=== PATIENT | female | born 1995 | race Caucasian/White ===

== ENCOUNTER → 2020-01-23 14:13 | Outpatient (CLI) | payer OTHER, SELFPAY ==
[2020-01-23 13:35] VITALS: BMI 24.0
--- NOTE | 2020-01-23 14:28 | RAD_ITS ---
STUDY: X-RAY CHEST REASON FOR EXAM: Female, 24 years old. Fever over the weekend, cough currently TECHNIQUE: PA and lateral views of the chest. COMPARISON: None. FINDINGS: Findings suggestive of early right apical infiltrate. There is no demonstrated pleural abnormality. Normal size heart. Normal mediastinum and cidny. Normal visualized pulmonary arteries. Normal visualized aortic arch and descending thoracic aorta. Normal visualized thoracic spine. Normal visualized ribs, clavicles, and shoulders. There is no demonstrated abnormality of the visualized soft tissue structures of the upper abdomen. RAD/Chest PA and Lateral IMPRESSION: Findings suggestive of a right apical infiltrate. Electronically Signed: Frankie Pleitez, at 14:59 EDT , Service support ,
== END ==
PROVIDERS: PCP Internal Medicine; Referring Provider Internal Medicine; Visit Provider Internal Medicine
DX: J18.9 Pneumonia, unspecified organism (principal)
CPT/HCPCS: 71046

== ENCOUNTER → 2020-10-29 09:12 | Outpatient (CLI) | payer OTHER, SELFPAY ==
[2020-10-29 08:30] VITALS: BMI 31.7
[2020-10-29 12:52] LABS: Absolute Lymphocyte Count 2.01 X10^3/uL (0.83-4.51); Absolute Neutrophil Count 3.5 X10^3/uL (2.0-7.7); Basophil# 0.05 X10^3/uL; Basophil% 0.8 % (0-1); Eosinophil# 0.14 X10^3/uL; Eosinophils% 2.3 % (0-5); Hematocrit 43.7 % (37-47); Hemoglobin 13.9 g/dL (12.0-15.0); Lymphocyte # 2.01 X10^3/ul (4.0); Lymphocyte % 33.1 % (19-41); Mean Corp Hgb Conc 31.8 g/dL (32-36); Mean Corpuscular Hgb 30.2 pg (27.0-32.0); Mean Corpuscular Volume 94.8 fL (81-99); Mean Platelet Vol. 10.8 fl (6.2-12.0); Monocyte% 6.6 % (0-10); NRBC Flagged by Analyzer 0 % (0-5); Neutrophil # 3.46 X10^3/uL (2.7-7.7); Platelet Count 306 K/mm3 (150-450); RBC Distribution Width CV 12.1 % (11.6-14.6); RBC Distribution Width SD 42.3 fl (35.1-43.9); Red Blood Count 4.61 M/mm3 (4.2-5.4); White Blood Count 6.1 K/mm3 (4.4-11.0)
[2020-10-29 13:00] LABS: ALB/GLOB Ratio 0.9 RATIO (0.9-2.4); AST(SGOT) 21 U/L (15-37); Alanine Aminotransfer ALT/SGPT 34 U/L (13-56); Albumin, Serum 3.7 g/dL (3.2-5.0); Alkaline Phosphatase 91 U/L (45-117); Anion Gap 6 (5-15); BUN 16 mg/dL (7-18); BUN/Creat Ratio 17.7 RATIO (10-20); Calcium,Total 9.2 mg/dL (8.5-10.1); Chloride 103 mmol/L (98-107); Cholesterol 223 mg/dL (200); Creatinine, Serum 0.91 mg/dL (0.55-1.02); EST Glomerular Filtration Rate 81 mL/min (>60); Est Glom Filt Rate - Afr Amer 98 mL/min (>60); Glucose 81 mg/dL (74-106); High Density Lipoprotein 62 mg/dL; Potassium 4.3 mmol/L (3.5-5.1); Protein, Total 7.7 g/dL (6.4-8.2); Sodium Level 137 mmol/L (136-145); Triglycerides 58 mg/dL; Very Low Density Lipoprotein 12 mg/dL (5-40)
== END ==
PROVIDERS: PCP Internal Medicine; Referring Provider Internal Medicine; Visit Provider Internal Medicine
DX: Z00.00 Encounter for general adult medical examination without abnormal findings (principal)
CPT/HCPCS: 36415; 80053; 80061; 85025

== ENCOUNTER 2022-01-01 10:18 | Outpatient (CLI) | payer OTHER, SELFPAY ==
[2022-01-01 10:42] LABS: Absolute Lymphocyte Count 1.99 X10^3/uL (0.83-4.51); Absolute Neutrophil Count 6.5 X10^3/uL (2.0-7.7); Basophil# 0.01 X10^3/uL; Basophil% 0.1 % (0-1); Eosinophil# 0.07 X10^3/uL; Eosinophils% 0.8 % (0-5); Hematocrit 34.7 % (37-47); Lymphocyte # 1.99 X10^3/ul (0.83-4.51); Lymphocyte % 21.7 % (19-41); Mean Corp Hgb Conc 34.6 g/dL (32-36); Mean Corpuscular Hgb 33.6 pg (27.0-32.0); Mean Corpuscular Volume 97.2 fL (81-99); Mean Platelet Vol. 10.5 fl (6.2-12.0); Monocyte% 5.5 % (0-10); NRBC Flagged by Analyzer 0 % (0-5); Neutrophil # 6.52 X10^3/uL (2.7-7.7); Neutrophil % 71.2 % (47-70); Platelet Count 224 K/mm3 (150-450); RBC Distribution Width CV 12.5 % (11.6-14.6); RBC Distribution Width SD 44.5 fl (35.1-43.9); Red Blood Count 3.57 M/mm3 (4.2-5.4); White Blood Count 9.2 K/mm3 (4.4-11.0)
[2022-01-01 10:50] LABS: Glucose Challenge Gest 1H 50g 96 mg/dL (70-140)
== END 2022-01-01 23:59 | disposition home or self-care (01) ==
PROVIDERS: PCP Internal Medicine; Referring Provider Obstetrics & Gynecology; Visit Provider Obstetrics & Gynecology
DX: Z34.90 Encounter for supervision of normal pregnancy, unspecified, unspecified trimester (principal); Z13.1 Encounter for screening for diabetes mellitus
CPT/HCPCS: 36415; 82950; 85025

== ENCOUNTER 2022-01-15 13:42 | Outpatient (CLI) | payer OTHER, SELFPAY ==
[2022-01-15 15:04] LABS: Amphetamine Urine VISTA NEGATIVE (<1000 ng/mL); Barbiturate Urine VISTA NEGATIVE (< 200 ng/mL); Benzodiazepine Urine VISTA NEGATIVE (< 200 ng/mL); Cocaine Urine VISTA NEGATIVE (< 300 ng/mL); Ecstacy Urine VISTA NEGATIVE (< 500 ng/mL); Methadone Urine VISTA NEGATIVE (< 300 ng/mL); PCP Urine VISTA NEGATIVE (< 25 ng/mL); THC Urine VISTA NEGATIVE (< 50 ng/mL); Vista UDS pH Range 7
[2022-01-15 15:23] LABS: HIV - WCH Non-Reactive (Nonreactive)
== END 2022-01-15 23:59 | disposition home or self-care (01) ==
LOC: LAB 13:43
PROVIDERS: PCP Internal Medicine; Referring Provider Obstetrics & Gynecology; Visit Provider Obstetrics & Gynecology
DX: Z34.93 Encounter for supervision of normal pregnancy, unspecified, third trimester (principal); Z3A.30 30 weeks gestation of pregnancy
CPT/HCPCS: 36415; 80307; 86703

== ENCOUNTER → 2022-02-12 | Outpatient (CLI) | payer OTHER, SELFPAY | END | disposition home or self-care (01) | LOC: LABSPEC 16:43 | PROVIDERS: PCP Internal Medicine; Visit Provider Obstetrics & Gynecology | DX: R35.0 Frequency of micturition (principal) | CPT/HCPCS: 87086; 87088 ==

== ENCOUNTER 2022-02-14 18:29 | Observation (INO) | payer OTHER, SELFPAY ==
[2022-02-14] VITALS (16 sets, daily range): BP systolic 109–128; BP diastolic 64–75; PULSE 74–100; TEMP 36.6–37.3; O2SAT 97–100; BMI 31.0
[2022-02-14] MEDS: Lactated Ringers 1,000 ML 100 ML IV (13:50)
[2022-02-14] MEDS: fentaNYL 100 MCG/2 ML Ampul 50 MCG IV (14:10)
[2022-02-14 14:18] LABS: Absolute Lymphocyte Count 2.01 X10^3/uL (0.83-4.51); Absolute Neutrophil Count 7.2 X10^3/uL (2.0-7.7); Basophil# 0.02 X10^3/uL; Basophil% 0.2 % (0-1); Eosinophil# 0.07 X10^3/uL; Eosinophils% 0.7 % (0-5); Hematocrit 35.6 % (37-47); Lymphocyte # 2.01 X10^3/ul (0.83-4.51); Mean Corp Hgb Conc 33.7 g/dL (32-36); Mean Corpuscular Hgb 32.3 pg (27.0-32.0); Mean Corpuscular Volume 95.7 fL (81-99); Mean Platelet Vol. 11.1 fl (6.2-12.0); Monocyte# 0.64 X10^3/uL; Monocyte% 6.4 % (0-10); NRBC Flagged by Analyzer 0 % (0-5); Neutrophil # 7.23 X10^3/uL (2.7-7.7); Neutrophil % 72.1 % (47-70); Platelet Count 213 K/mm3 (150-450); RBC Distribution Width CV 12.6 % (11.6-14.6); RBC Distribution Width SD 43.5 fl (35.1-43.9); Red Blood Count 3.72 M/mm3 (4.2-5.4)
[2022-02-14] MEDS: FERRIC SUBSULFATE 8 GM SOLN (14:45)
--- NOTE | 2022-02-14 15:00 | NURSING ---
Dr. Lopez on unit. Wants VS Q4 hours along with checking for bleeding on the vaginal packing. Pt is to be on bed rest with BR privileges. Will monitor overnight; NST QD.
--- NOTE | 2022-02-14 15:16 | HP.PCM.OB_ITS ---
HPI - General HPI Narrative MAYA SHARIF, is a 26 y/o @ 34 weeks 2 days who presents with vaginal bleeding after intercourse this am. She has a known cervical ectropion and has had on and off bleeding with manipulation of the cervix. Maternal Data Information [facility] Calculator Estimated Delivery Date Method Current WG Current Estimate 03/26/22 LMP (Certain) 34w 2d PFSH PFSH Medical History (Updated 02/14/22 @ 15:[address] Natalia Varghese, DO) Anxiety and depression Asthma Choroid plexus cyst Ectropion of cervix History of pneumonia Seasonal allergies Home Medications HHI-mrjc-MY-omega 3-fat com #1 27 mg-1 mg-300 mg capsule 1 cap PO DAILY 10/29/20 [History Last Taken 02/13/22 22:00] famotidine 20 mg tablet 20 mg PO BID 12/11/21 [History Last Taken 02/14/22 08:00] nitrofurantoin monohydrate/macrocrystals 100 mg capsule 100 mg PO BID 7 Days #14 cap 02/12/22 [Rx Last Taken 02/14/22 09:00] Allergy/AdvReac Type Severity Reaction Status Date / Time Sulfa (Sulfonamide Allergy Rash Verified 02/12/22 13:32 Antibiotics) Family History Mother Depression Heart disease Father Hypertension Grandmother Heart disease Surgical History History of adenoidectomy History of colonoscopy Social History Smoking Status: Never smoker alcohol intake: current alcohol intake frequency: a few times a month details: previous to substance use type: does not use caffeine: Yes what type of physical activity do you participate in: none seatbelt use: always do you feel safe at home: Yes additional social history: 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 counseled regarding risk of covid in vs vaccination and declined vaccination Flu vaccine: declined Tdap vaccine: given Rhogam: na LARC form signed: [] movement and labor precautions reviewed. Problem list reviewed and updated with the most current plan of care details and appropriate orders placed. Relevant counseling for the gestational age provided. Continue routine care and follow up unless otherwise noted in visit notes/problem list details OB Flowsheet Initial Weight: 165 lb Date -?-?-?-?-?-?-?-?-?-?-?-?- EGA Weight BP Urine Prot -?-?-?-?-?-?-?-?-?-?-?-?- Glucose FHR FuHt Pres Dilation -?-?-?-?-?-?-?-?-?-?-?-?- Effaced St Visit Note 12/11/21 -?-?-?-?-?-?-?-?-?-?-?-?- 25w 0d 170 lb (+5 lb) 116/64 -?-?-?-?-?-?-?-?-?-?-?-?- 150 -?-?-?-?-?-?-?-?-?-?-?-?- SM- KELSY Summa, n o vb lof good fm no regular ctx 01/01/22 -?-?-?-?-?-?-?-?-?-?-?-?- 28w 0d 174 lb (+9 lb) 120/80 Negative -?-?-?-?-?-?-?-?-?-?-?-?- Negative 146 28 -?-?-?-?-?-?-?-?-?-?-?-?- JV- pt is worrie d about the size of the baby and 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 Will order f/u ultrasounds with MFM to document resolution and for growth. pt has gained 8 pounds in the . 01/15/22 -?-?-?-?-?-?-?-?-?-?-?-?- 30w 0d 179 lb 4 oz (+14 lb 4 oz) 118/72 Negative -?-?-?-?-?-?-?-?-?-?-?-?- Negative 145 30 -?-?-?-?-?-?-?-?-?-?-?-?- SM- no vb lof go od fm no reuglar ctx 01/29/22 -?-?-?-?-?-?-?-?-?-?-?-?- 32w 0d 179 lb 6 oz (+14 lb 6 oz) 120/80 Negative -?-?-?-?-?-?-?-?-?-?-?-?- Negative 155 31 -?-?-?-?-?-?-?-?-?-?-?-?- JV- no lof, vagi nal bleeding, or dec fm. numbness in toes, bloody stool x1 and 1 hr of cramping. ptl precautions discussed. inc hydration, rest, tylenol 02/12/22 -?-?-?-?-?-?-?-?-?-?-?-?- 34w 0d 183 lb 8 oz (+18 lb 8 oz) 124/80 Negative -?-?-?-?-?-?-?-?-?-?-?-?- Negative 144 33 -?-?-?-?-?-?-?-?-?-?-?-?- JV- no lof. vagi nal bleeding, or dec fm. no complaints. normal follow up anatomy . 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 02/14/22 -?-?-?-?--?-?-?-?-?-?-?-?- 34w 2d 181 lb (+16 lb) 128/75 117/64 -?-?-?-?-?-?-?-?-?-?-?-?- -?-?-?-?-?-?-?-?-?-?-?-?- ROS Constitutional Constitutional: Denies change in weight, fatigue, fever(s), headache(s), poor appetite or weakness Eyes Eyes: Denies blurry vision, change in vision, seeing flashes or spots in vision ENT HEENT: Denies dizziness, headache(s), loss taste/smell or sore throat Cardiovascular Cardiovascular: Denies chest pain, dizziness, dyspnea, irregular heart rhythm, leg edema, palpitations, rapid heart rate or vomiting Respiratory/Chest Respiratory/Chest: Denies chest tightness, cough, dyspnea or breast pain Gastrointestinal Gastrointestinal: Denies abdominal pain, anorexia, constipation, cramping, diarrhea, hemorrhoids, vomiting or weight changes Genitourinary Genitourinary: Denies dysuria, flank pain, genital lesions, genital pain, urinary frequency or urinary urgency Musculoskeletal Musculoskeletal: Denies back pain, difficulty walking, joint pain, limited range of motion, muscle cramps or numbness Integumentary Integumentary: Denies lesions or unusual bruising Neurologic Neurologic: Denies abnormal movements, abnormal speech, dizziness, numbness, seizure-like activity or syncope Psychiatric Psychiatric: Denies anxiety, behavioral changes, change in appetite, change in libido, cognitive impairment, confusion, depression, difficulty concentrating, hallucinations or suicidal thoughts Endocrine Endocrinology: Denies excessive sweating, polydipsia or polyuria Hematologic/Lymphatic Hematologic/Lymphatic: Denies easy bleeding, easy bruising or lymphadenopathy Allergic/Immunologic Allergic/Immunologic: Denies itchy eyes, lip swelling, seasonal rhinorrhea, rhinitis, throat swelling, tongue swelling, eczemia, wheezing or asthma Vital Signs Vital Signs Vital Signs: 02/14/22 13:20 02/14/22 13:21 Pulse Rate 100 94 Blood Pressure 128/75 H BP Systolic 128 BP Diastolic 75 Pulse Ox 98 Weight Weight: 181 lb Body Mass Index (BMI) 31.0 Physical Exam Const alert, oriented x3, no apparent distress and healthy appearing General Appearance: cooperative; Negative for anxious HEENT normocephalic Face and Sinus: normal facial exam Eyes EOMs intact bilaterally and no scleral icterus General Eye: normal appearance of both eyes Neck full ROM and supple Lymph Lymphatic: no lymphadenopathy noted Chest Chest: abnormal inspection of the chest Resp normal respiratory effort Effort and Inspection: able to speak in complete sentences Cardio regular rate GI soft to palpation and non-tender Inspection: gravid Palpation: soft; Negative for tender external exam normal Amniotic Fluid: other small laceration noted at the 11:00 position. attempt to stop with silver nitrite made the bleeding worse. Back/Spine no CVA tenderness Extremity normal to inspection, full ROM and no clubbing, cyanosis or edema General Extremity: Negative for calf tenderness or edema Skin Lesions: no lesions Rashes: no rashes Psych mental status grossly normal Labs Labs Labs: Blood Type A POSITIVE Antibody Screen NEGATIVE Hct 35.6 % (37-47) L Hgb 12.0 g/dL (12.0-15.0) Pap Smear Negative Chlamydia DNA (SHERI) Negative (Negative-) Neisseria gonorrhoeae DNA (SHERI) Negative (Negative-) HIV 1&2 Antibody Non-Reactive (Nonreactive) Glucose 1 Hr 50 gm 96 mg/dL (70-140) Assessment & Plan (1) Ectropion of cervix: COMMENT: pt will need assessment in the operating room to repair further bleeding. (2) Supervision of high risk in second trimester: COMMENT: frankie Dupont Spouse:Austyn ordered HIV and tox (3) : QUALIFIERS: Weeks of gestation: 32 weeks Qualified Code(s): Z3A.32 - 32 weeks gestation of COMMENT: carrier and ntd declined. nl NIPT. anatomy reviewed. letrozole conceived Transfer from [facility] (4) Choroid plexus cyst: COMMENT: genetics LR normal on 30 week scan (5) Depression: COMMENT: no meds counseling encouraged.
--- NOTE | 2022-02-14 15:22 | PCM.OP.BLANK ---
Problems Associated Problem List Diagnoses (1) Ectropion of cervix: (2) Supervision of high risk in second trimester: (3) : (4) Choroid plexus cyst: (5) Depression: Operative Report Date of Procedure: 02/14/22 Preoperative diagnosis: Cervical laceration at 34 weeks 2 days and friable cervix Postoperative diagnosis: Cervical laceration at 34 weeks 2 days and firable cervix Procedure: Cervical laceration repair Anesthesia: MAC and local Complications: None Estimated blood loss: 260 cc Intraoperative monitoring of the fetus showed minimal variability when administered anesthesia. No decelerations noted Assistance: ARASH Pettit, and Dr. Ilsa Muñoz Details of the procedure: The patient was examined at bedside in the delivery suite and was noted to have a small cervical laceration. The patient states that this happened after intercourse early this morning. This was noted at the 11 o'clock position and measured approximately 5 mm. The area was noted to be trickling with a mild amount of blood. The cervical os was noted to be closed. Silver nitrate was applied to this area however this created more bleeding from the cervix. A second silver nitrate stick was applied however when pulled back on the silver nitrate stick a large gush of blood was noted. At this point the patient was brought to the operating room for better visualization. The patient was placed on the operating table her legs were placed in stirrups a weighted speculum was placed in the vagina vaginal vault prep was performed with Betadine. The patient was noted to be comfortable with the examination up to this point. As the cervix was dabbed with 4 x 4 gauze more bleeding was noted and the decision was made to proceed with a cervical stitch. Suction was used to clear the area and a 3-0 Vicryl stitch was placed to the anterior lip of the cervix. At this time the cervix ripped more and more further bleeding was noted. Anesthesia was called to administer a MAC dose of anesthetic to relax the patient. During this time the packing was performed to stop further bleeding until she was comfortable. The cervix was injected with 1% lidocaine at the 2 and 10 o'clock position on the cervix with approximately 10 cc total of lidocaine. Using an 0 Vicryl suture a running lock stitch was performed on the anterior lip of the cervix. There was noted to be excellent hemostasis was noted until the suture was tied and pressure was removed. With suction, the bleeding was noted coming from the 3 o'clock position of the cervix. A second Stitch was attempted at this site however pulled through and ripped the cervix once again. Pressure was held on the cervix and at this time Dr. Muñoz was called to the operating room for further further assistance. While Dr. Muñoz was in route further pressure was held with the gauze and when she arrived hemostasis was achieved with pressure alone. The decision was made to apply Monsel solution and place a vaginal packing. This point the procedure was ended the patient tolerated the procedure well sponge lap and needle counts were correct x2 and she was brought back to the labor and delivery suite in stable condition condition was also noted to be stable and the fetus was monitored during the entire procedure. Multi Select Codes Urinary/Genital Urinary/Genital CPT Codes: Other Procedure See Report (repair of cervical laceration )
[2022-02-14] MEDS: Cefazolin 2 GM in 0.9% Normal Saline 100 ML IV (15:57)
[2022-02-14] MEDS: Betamethasone/Betamethasone 30 MG/5 ML Vial 12 MG IM (15:58)
[2022-02-14] MEDS: Lactated Ringers 1,000 ML 75 ML IV (16:02)
[2022-02-14] MEDS: Acetaminophen 325 MG Tablet 650 MG PO ×2 (17:13→23:17)
[2022-02-14 17:37] LABS: Prothrombin Time (Protime)PT. 13.3 SECONDS (11.7-14.9)
[2022-02-14 17:38] LABS: Fibrinogen 365 mg/dl (203-444); Partial Thromboplast Time 26.3 Seconds (24.1-36.2)
[2022-02-15 00:32] VITALS: BP 100/54; PULSE 68; RESP 16; TEMP 36.4; O2SAT 98
[2022-02-15 00:33] VITALS: BP 100/54; PULSE 70
[2022-02-15 04:27] VITALS: BP 101/53; PULSE 77; O2SAT 96
[2022-02-15 05:00] LABS: Absolute Lymphocyte Count 1.42 X10^3/uL (0.83-4.51); Absolute Neutrophil Count 14.2 X10^3/uL (2.0-7.7); Basophil# 0.02 X10^3/uL; Basophil% 0.1 % (0-1); Hematocrit 30.1 % (37-47); Hemoglobin 10.3 g/dL (12.0-15.0); Lymphocyte # 1.42 X10^3/ul (0.83-4.51); Lymphocyte % 8.7 % (19-41); Mean Corp Hgb Conc 34.2 g/dL (32-36); Mean Corpuscular Hgb 32.3 pg (27.0-32.0); Mean Corpuscular Volume 94.4 fL (81-99); Mean Platelet Vol. 11.2 fl (6.2-12.0); Monocyte# 0.58 X10^3/uL; Monocyte% 3.5 % (0-10); NRBC Flagged by Analyzer 0 % (0-5); Neutrophil # 14.23 X10^3/uL (2.7-7.7); Neutrophil % 86.9 % (47-70); Platelet Count 202 K/mm3 (150-450); RBC Distribution Width CV 12.5 % (11.6-14.6); RBC Distribution Width SD 43.5 fl (35.1-43.9); Red Blood Count 3.19 M/mm3 (4.2-5.4); White Blood Count 16.4 K/mm3 (4.4-11.0)
[2022-02-15] MEDS: Acetaminophen 325 MG Tablet 650 MG PO (05:26)
[2022-02-15 07:40] VITALS: BP 119/74; PULSE 68; TEMP 37.1
[2022-02-15] MEDS: Famotidine 20 MG Tablet PO (11:20)
[2022-02-15] MEDS: Prenatal Vits Tablet 1 TABLET PO (11:22)
[2022-02-15 11:23] VITALS: BP 100/60; PULSE 75; TEMP 36.8; O2SAT 95
--- NOTE | 2022-02-15 15:54 | NURSING ---
pharmacy notified again to send 1515 celestone dose
[2022-02-15] MEDS: Betamethasone/Betamethasone 30 MG/5 ML Vial 12 MG IM (16:26)
--- NOTE | 2022-02-15 17:58 | PCM.PN.OB ---
Subjective Subjective pt denies bleeding or cramping. She is sitting up in bed and ready to have packing removed. Objective Data Objective Data Vital Signs: Vital Signs Temp Pulse Resp BP Pulse Ox 98.2 F 75 16 100/60 95 02/15/22 11:23 02/15/22 11:23 02/15/22 00:32 02/15/22 11:23 02/15/22 11:23 Weight: 181 lb Body Mass Index (BMI) 31.0 Intake & Output: Intake and Output for Last 24 Hours 02/13/22 02/14/22 02/15/22 23:59 23:59 23:59 Intake Total 340 / 340 1000 / 1000 Balance 340 / 340 1000 / 1000 Lab / Micro Data Result Diagrams: 02/15/22 04:55 Labs: Laboratory Results - last 24 hr 02/15/22 04:55: WBC 16.4 H, RBC 3.19 L, Hgb 10.3 L, Hct 30.1 L, MCV 94.4, MCH 32.3 H, MCHC 34.2, RDW Std Deviation 43.5, RDW Coeff of Vinicius 12.5, Plt Count 202, MPV 11.2, Immature Gran % (Auto) 0.800, Neut % (Auto) 86.9 H, Lymph % (Auto) 8.7 L, Jessamine % (Auto) 3.5, Eos % (Auto) 0.0, Baso % (Auto) 0.1, Absolute Neuts (auto) 14.2 H, Absolute Lymphs (auto) 1.42, Nucleated RBC % 0 ROS Constitutional Constitutional: Denies chills, fatigue, fever(s), poor appetite or weakness Eyes Eyes: Denies blurry vision, change in vision, seeing flashes or spots in vision ENT HEENT: Denies dizziness, headache(s), loss taste/smell or sore throat Cardiovascular Cardiovascular: Denies chest pain, dizziness, dyspnea, irregular heart rhythm, palpitations or rapid heart rate Respiratory/Chest Respiratory/Chest: Denies chest tightness, cough, dyspnea or breast pain Gastrointestinal Gastrointestinal: Denies abdominal pain, constipation or vomiting Genitourinary Genitourinary: Denies dysuria or flank pain Musculoskeletal Musculoskeletal: Denies difficulty walking, joint pain, limited range of motion or numbness Neurologic Neurologic: Denies abnormal movements, abnormal speech, dizziness, numbness, seizure-like activity or syncope Psychiatric Psychiatric: Denies anxiety, behavioral changes, change in appetite, confusion, depression or suicidal thoughts Physical Exam Const alert, oriented x3 and no apparent distress General Appearance: cooperative and comfortable Resp normal respiratory effort Cardio regular rate GI normal to inspection, nondistended, normoactive bowel sounds GI Narrative: packing removed carefully, sterile speculum placed in the vagina and cervix is noted to be hemostatic. nst reactive this am. Palpation: soft Bimanual Exam - Adnexa, Other: Negative for cul-de-sac fullness Back/Spine no CVA tenderness and thoraco-lumbar ROM normal Extremity normal to inspection, no clubbing, cyanosis or edema, no calf tenderness and no pedal edema Psych mental status grossly normal, thought process normal, cooperative, affect normal, speech normal, activity/motor behavior normal, denies homicidal ideation and denies suicidal ideation NST FHR Rate Baby A Baseline: 140 Variability:: Moderate Accelerations:: 15 x 15 Decelerations:: None NST Reactive:: Yes FHR Category:: Category I Uterine Activity:: no contractions
--- NOTE | 2022-02-15 18:02 | PCM.DC ---
Discharge Instructions Follow Up Care Test Results: Test results from this visit will be discussed in further detail at your follow-up appointment, if applicable. Discharge Plan Admission Admit Date/Time: 02/14/22 18:29 Primary Reason for Your Visit: cervical laceration in Attending Provider: Natalia Varghese Primary Care Provider: Melissa Paez Discharge Orders/Prescriptions Prescriptions: Continued RLM-aldp-DR-omega 3-fat com #1 27 mg-1 mg-300 mg capsule 27-1-300 mg capsule 1 cap PO DAILY RF: 0 famotidine [Pepcid AC] 20 mg tablet 20 mg PO BID RF: 0 nitrofurantoin monohyd/m-cryst [Macrobid] 100 mg capsule 100 mg PO BID 7 Days Qty: 14 RF: 0 Referrals / Follow Up: Melissa Paez MD [Primary Care Provider] - Disposition Disposition (needs filled in before D/C Order can be placed): Home, Self Care
== END 2022-02-15 18:10 | disposition home or self-care (01) ==
LOC: WPOUT 18:30 → WP 18:30
PROVIDERS: Admitting Provider Obstetrics & Gynecology; PCP Internal Medicine; Visit Provider Obstetrics & Gynecology
DX: O99.891 Other specified diseases and conditions complicating pregnancy (principal); O99.343 Other mental disorders complicating pregnancy, third trimester; G93.0 Cerebral cysts; O34.43 Maternal care for other abnormalities of cervix, third trimester; O99.353 Diseases of the nervous system complicating pregnancy, third trimester; F32.A Depression, unspecified; N93.0 Postcoital and contact bleeding; Z3A.34 34 weeks gestation of pregnancy; F41.9 Anxiety disorder, unspecified; J45.909 Unspecified asthma, uncomplicated; O99.513 Diseases of the respiratory system complicating pregnancy, third trimester; N86 Erosion and ectropion of cervix uteri; O9A.22 Injury, poisoning and certain other consequences of external causes complicating childbirth; S37.63XA Laceration of uterus, initial encounter; X58.XXXA Exposure to other specified factors, initial encounter
CPT/HCPCS: 57720; 36415; 59025; 59050; 85025; 85384; 85610; 85730; 86850; 86900; 86901; 96372; 99218; J7120; G0378; J0702

== ENCOUNTER → 2022-03-04 | Outpatient (CLI) | payer OTHER, SELFPAY ==
[2022-03-04 16:49] LABS: Amphetamine Urine VISTA NEGATIVE (<1000 ng/mL); Barbiturate Urine VISTA NEGATIVE (< 200 ng/mL); Benzodiazepine Urine VISTA NEGATIVE (< 200 ng/mL); Cocaine Urine VISTA NEGATIVE (< 300 ng/mL); Ecstacy Urine VISTA NEGATIVE (< 500 ng/mL); Methadone Urine VISTA NEGATIVE (< 300 ng/mL); PCP Urine VISTA NEGATIVE (< 25 ng/mL); THC Urine VISTA NEGATIVE (< 50 ng/mL); Vista UDS pH Range 7
== END | disposition home or self-care (01) ==
PROVIDERS: PCP Internal Medicine; Referring Provider Obstetrics & Gynecology; Visit Provider Obstetrics & Gynecology
DX: O09.92 Supervision of high risk pregnancy, unspecified, second trimester (principal)
CPT/HCPCS: 80307; 87081

== ENCOUNTER → 2022-03-12 | Outpatient (CLI) | payer OTHER, SELFPAY ==
[2022-03-12 19:11] LABS: Amphetamine Urine VISTA NEGATIVE (<1000 ng/mL); Barbiturate Urine VISTA NEGATIVE (< 200 ng/mL); Benzodiazepine Urine VISTA NEGATIVE (< 200 ng/mL); Cocaine Urine VISTA NEGATIVE (< 300 ng/mL); Ecstacy Urine VISTA NEGATIVE (< 500 ng/mL); Methadone Urine VISTA NEGATIVE (< 300 ng/mL); PCP Urine VISTA NEGATIVE (< 25 ng/mL); THC Urine VISTA NEGATIVE (< 50 ng/mL); Vista UDS pH Range 6
== END | disposition home or self-care (01) ==
LOC: LABSPEC 16:46
PROVIDERS: PCP Internal Medicine; Visit Provider Obstetrics & Gynecology
DX: Z34.93 Encounter for supervision of normal pregnancy, unspecified, third trimester (principal)
CPT/HCPCS: 80307

== ENCOUNTER 2022-03-19 05:30 | Inpatient (IN) | payer OTHER, SELFPAY ==
[2022-03-19] VITALS (16 sets, daily range): BP systolic 98–144; BP diastolic 54–88; PULSE 56–94; RESP 16–18; TEMP 36.1–37.1; O2SAT 96–100; BMI 32.1
[2022-03-19] MEDS: Lactated Ringers 1,000 ML 999 ML IV (05:50)
[2022-03-19] MEDS: Acetaminophen 500 MG Tablet 1000 MG PO ×3 (06:01→18:36)
[2022-03-19 06:09] LABS: Mucous, Urine 0 SEEN /hpf (<or=2+); Red Blood Cells-Urine 0 SEEN /hpf (0-5)
[2022-03-19 06:12] LABS: Absolute Lymphocyte Count 2.47 X10^3/uL (0.83-4.51); Absolute Neutrophil Count 6.9 X10^3/uL (2.0-7.7); Basophil# 0.03 X10^3/uL; Basophil% 0.3 % (0-1); Eosinophil# 0.08 X10^3/uL; Eosinophils% 0.8 % (0-5); Hematocrit 35.7 % (37-47); Hemoglobin 12.3 g/dL (12.0-15.0); Lymphocyte # 2.47 X10^3/ul (0.83-4.51); Lymphocyte % 24.5 % (19-41); Mean Corp Hgb Conc 34.5 g/dL (32-36); Mean Corpuscular Hgb 32.6 pg (27.0-32.0); Mean Corpuscular Volume 94.7 fL (81-99); Mean Platelet Vol. 11.4 fl (6.2-12.0); Monocyte# 0.58 X10^3/uL; Monocyte% 5.7 % (0-10); NRBC Flagged by Analyzer 0 % (0-5); Neutrophil # 6.88 X10^3/uL (2.7-7.7); Neutrophil % 68.1 % (47-70); Platelet Count 217 K/mm3 (150-450); RBC Distribution Width CV 12.9 % (11.6-14.6); RBC Distribution Width SD 44.3 fl (35.1-43.9); Red Blood Count 3.77 M/mm3 (4.2-5.4); White Blood Count 10.1 K/mm3 (4.4-11.0)
[2022-03-19 06:19] LABS: Color, Urine Yellow (Yellow); Glucose, Dipstick Normal (Normal); Ketone-Dipstick Negative (Negative); Leukocyte Esterase-Dipstick 100 /ul (Negative); Nitrite-Dipstick Negative (Negative); Occult Blood-Urine Negative /ul (Negative); Protein-Dipstick 15 mg/dl (Negative); Specific Gravity, Urine 1.015 (1.002-1.030); Urine Bilirubin Dipstick Negative (Negative); Urine Clarity Clear (Clear); Urine Urobilinogen Normal (Normal); Urine pH 6.5 (5.0 - 8.0)
[2022-03-19 06:28] LABS: White Blood Cells 10-25 SEEN /hpf (0-5)
[2022-03-19 06:29] LABS: Bacteria 1+ /hpf (None Seen); Squamous Epithelial Cells - UA 0-5 SEEN /hpf (5-10)
[2022-03-19] MEDS: Lactated Ringers 1,000 ML 150 ML IV (06:56)
[2022-03-19] MEDS: Sodium Citrate/Citric Acid 30 ML UDC PO (07:07)
[2022-03-19] MEDS: Cefazolin 2 GM in 0.9% Normal Saline 100 ML IV (07:23)
--- NOTE | 2022-03-19 07:31 | HP.PCM.OB_ITS ---
HPI - General General Date of Admission: 03/19/22 HPI Narrative MAYA SHARIF, is a 26y/o F who presents for a primary section due to 35 week cervical laceration and extensive repair in the OR. The decision was made to prevent further tearing and perform a section. The patient was given risks, benefits, and alternatives and also chose to proceed with . Maternal Data Information WESTON Calculator Estimated Delivery Date Method Current WG Current Estimate 03/26/22 LMP (Certain) 39w 0d PFSH PFSH Medical History Anxiety and depression Asthma Choroid plexus cyst Ectropion of cervix History of pneumonia Infertility Normal colonoscopy Seasonal allergies Home Medications MRD-[id number]-[id number]-omega 3-fat com #1 27 mg-1 mg-300 mg capsule 1 cap PO DAILY 10/29/20 [History Last Taken 02/13/22 22:00] famotidine 20 mg tablet 20 mg PO BID 12/11/21 [History Last Taken 02/14/22 08:00] Allergy/AdvReac Type Severity Reaction Status Date / Time Sulfa (Sulfonamide Allergy Rash Verified 03/04/22 15:25 Antibiotics) Family History Mother Depression Heart disease Father Hypertension Grandmother Heart disease Surgical History History of adenoidectomy History of colonoscopy Social History Smoking Status: Never smoker alcohol intake: current alcohol intake frequency: a few times a month details: previous to substance use type: does not use caffeine: Yes what type of physical activity do you participate in: none seatbelt use: always do you feel safe at home: Yes additional social history: 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 counseled regarding risk of covid in vs vaccination and declined vaccination Flu vaccine: declined Tdap vaccine: given Rhogam: na LARC form signed: [] movement and labor precautions reviewed. Problem list reviewed and updated with the most current plan of care details and appropriate orders placed. Relevant counseling for the gestational age provided. Continue routine care and follow up unless otherwise noted in visit notes/problem list details OB Flowsheet Initial Weight: 165 lb Date -?-?-?-?-?-?-?-?-?-?-?-?- EGA Weight BP Urine Prot -?-?-?-?-?-?-?-?-?-?-?-?- Glucose FHR FuHt Pres Dilation -?-?-?-?-?-?-?-?-?-?-?-?- Effaced St Visit Note 12/11/21 -?-?-?-?-?-?-?-?-?-?-?-?- 25w 0d 170 lb (+5 lb) 116/64 -?-?-?-?-?-?-?-?-?-?-?-?- 150 -?-?-?-?-?-?-?-?-?-?-?-?- SM- KELSY Summa, n o vb lof good fm no regular ctx 01/01/22 -?-?-?-?-?-?-?-?-?-?-?-?- 28w 0d 174 lb (+9 lb) 120/80 Negative -?-?-?-?-?-?-?-?-?-?-?-?- Negative 146 28 -?-?-?-?-?-?-?-?-?-?-?-?- JV- pt is worrie d about the size of the baby and about the bilateral BRANCH MECHANIC. Will order f/u ultrasounds with MFM to document resolution and for growth. pt has gained 8 pounds in the . 01/15/22 -?-?-?-?-?-?-?-?-?-?-?-?- 30w 0d 179 lb 4 oz (+14 lb 4 oz) 118/72 Negative -?-?-?-?-?-?-?-?-?-?-?-?- Negative 145 30 -?-?-?-?-?-?-?-?-?-?-?-?- SM- no vb lof go od fm no reuglar ctx 01/29/22 -?-?-?-?-?-?-?-?-?-?-?-?- 32w 0d 179 lb 6 oz (+14 lb 6 oz) 120/80 Negative -?-?-?-?-?-?-?-?-?-?-?-?- Negative 155 31 -?-?-?-?-?-?-?-?-?-?-?-?- JV- no lof, vagi nal bleeding, or dec fm. numbness in toes, bloody stool x1 and 1 hr of cramping. ptl precautions discussed. inc hydration, rest, tylenol 02/12/22 -?-?-?-?-?-?-?-?-?-?-?-?- 34w 0d 183 lb 8 oz (+18 lb 8 oz) 124/80 Negative -?-?-?-?-?-?-?-?-?-?-?-?- Negative 144 33 -?-?-?-?-?-?-?-?-?-?-?-?- JV- no lof. vagi nal bleeding, or dec fm. no complaints. normal follow up anatomy . bus analyst resolved 02/14/22 -?-?-?-?-?-?-?-?-?-?-?-?- 34w 3d 181 lb (+16 lb) 128/75 117/64 116/65 116/69 109/68 121/69 100/54 100/54 101/53 119/74 100/60 -?-?-?-?-?-?-?-?-?-?-?-?- -?-?-?-?-?-?-?-?-?-?-?-?- 02/19/22 -?-?-?-?-?-?-?-?-?-?-?-?- 35w 0d 182 lb (+17 lb) 112/80 Negative -?-?-?-?-?-?-?-?-?-?-?-?- Negative 145 35 -?-?-?-?-?-?-?-?-?-?-?-?- SM- no vb lof go od fm no regular ctxnspeculum exam stitches intact mild bleeding 02/23/22 -?-?-?-?-?-?-?-?-?-?-?-?- 35w 4d 182 lb (+17 lb) 132/84 Negative -?-?-?-?-?-?-?-?-?-?-?-?- Negative 140 35 -?-?-?-?-?-?-?-?-?-?-?-?- SM- still having some spotting with wiping, no acute bleeding on pad or underwears, reviewed bleeding precautions and fm good, kick counts., no regular ctx 03/04/22 -?-?-?-?-?-?-?-?-?-?-?-?- 36w 6d 186 lb 4 oz (+21 lb 4 oz) 130/82 Negative -?-?-?-?-?-?-?-?-?-?-?-?- Negative 134 36 -?-?-?-?-?-?-?-?-?-?-?-?- JV- no further b leeding. no lof, or dec fm. GBS today. planning for primary section at 39 weeks or sooner if bleeding occurs. 03/12/22 -?-?-?-?-?-?-?-?-?-?-?-?- 38w 0d 187 lb (+22 lb) 112/80 Negative -?-?-?-?-?-?-?-?-?-?-?-?- Negative 135 37 Cephalic 2 -?-?-?-?-?-?-?-?-?-?-?-?- 60 -2 SM- no vb lof good fm n oregular ctx. consent signed 03/19/22 -?-?-?-?-?-?-?-?-?-?-?-?- 39w 0d 186 lb 12.8 oz (+21 lb 12.8 oz) 144/88 15 mg/dl (Negative) H -?-?-?-?-?-?-?-?-?-?-?-?- -?-?-?-?-?-?-?-?-?-?-?-?- ROS Constitutional Constitutional: Denies change in weight, fatigue, fever(s), headache(s), poor appetite or weakness Eyes Eyes: Denies blurry vision, change in vision, seeing flashes or spots in vision ENT HEENT: Denies dizziness, headache(s), loss taste/smell or sore throat Cardiovascular Cardiovascular: Denies chest pain, dizziness, dyspnea, irregular heart rhythm, leg edema, palpitations, rapid heart rate or vomiting Respiratory/Chest Respiratory/Chest: Denies chest tightness, cough, dyspnea or breast pain Gastrointestinal Gastrointestinal: Denies abdominal pain, anorexia, constipation, cramping, diarrhea, hemorrhoids, vomiting or weight changes Genitourinary Genitourinary: Denies dysuria, flank pain, genital lesions, genital pain, urinary frequency or urinary urgency Musculoskeletal Musculoskeletal: Denies back pain, difficulty walking, joint pain, limited range of motion, muscle cramps or numbness Integumentary Integumentary: Denies lesions or unusual bruising Neurologic Neurologic: Denies abnormal movements, abnormal speech, dizziness, numbness, seizure-like activity or syncope Psychiatric Psychiatric: Denies anxiety, behavioral changes, change in appetite, change in libido, cognitive impairment, confusion, depression, difficulty concentrating, hallucinations or suicidal thoughts Endocrine Endocrinology: Denies excessive sweating, polydipsia or polyuria Hematologic/Lymphatic Hematologic/Lymphatic: Denies easy bleeding, easy bruising or lymphadenopathy Allergic/Immunologic Allergic/Immunologic: Denies itchy eyes, lip swelling, seasonal rhinorrhea, rhinitis, throat swelling, tongue swelling, eczemia, wheezing or asthma Vital Signs Vital Signs Vital Signs: 03/19/22 06:16 Temperature 98.7 F Temperature Source Temporal Pulse Rate 94 Respiratory Rate 18 Blood Pressure 144/88 H Blood Pressure Mean 106 Blood Pressure Source Monitor Blood Pressure Position Semi-Fowlers Blood Pressure Location Right Arm Pulse Ox 97 Oxygen Delivery Method Room Air Weight Weight: 186 lb 12.8 oz Body Mass Index (BMI) 32.1 Physical Exam Const alert, oriented x3, no apparent distress and healthy appearing General Appearance: cooperative; Negative for anxious HEENT normocephalic Face and Sinus: normal facial exam Eyes EOMs intact bilaterally and no scleral icterus General Eye: normal appearance of both eyes Neck full ROM and supple Lymph Lymphatic: no lymphadenopathy noted Chest Chest: abnormal inspection of the chest Resp normal respiratory effort Effort and Inspection: able to speak in complete sentences Cardio regular rate GI soft to palpation and non-tender Inspection: gravid Palpation: soft; Negative for tender external exam normal Back/Spine no CVA tenderness Extremity normal to inspection, full ROM and no clubbing, cyanosis or edema General Extremity: Negative for calf tenderness or edema Skin Lesions: no lesions Rashes: no rashes Psych mental status grossly normal Labs Labs Labs: Blood Type A POSITIVE Antibody Screen NEGATIVE Hct 35.7 % (37-47) L Hgb 12.3 g/dL (12.0-15.0) Pap Smear Negative Chlamydia DNA (SHERI) Negative (Negative-) Neisseria gonorrhoeae DNA (SHERI) Negative (Negative-) HIV 1&2 Antibody Non-Reactive (Nonreactive) Glucose 1 Hr 50 gm 96 mg/dL (70-140) Assessment & Plan (1) Depression: COMMENT: no meds counseling encouraged. (2) : QUALIFIERS: Weeks of gestation: 38 weeks Qualified Code(s): Z3A.38 - 38 weeks gestation of COMMENT: carrier and ntd declined. nl NIPT. anatomy reviewed. letrozole conceived Transfer from [facility]. GBS neg (3) Supervision of high risk in second trimester: COMMENT: PRR(tox) boy Cresencio Spouse:Austyn (4) Ectropion of cervix: COMMENT: cervical laceration repaired in OR with multiple vicryl suture applications. plan for 39 week c/d or when goes into labor pt received 2 doses of cytotec during hospital stay 02/14-02/15, Primary section scheduled 03/19 @ 7:30am with JV (5) Choroid plexus cyst: COMMENT: genetics LR normal on 30 week scan PLAN: ancef ordered, ERAS protocol in place After discussing the patient's diagnosis and treatment plan options, patient wishes to proceed with surgical management. I have discussed with the patient the risks, benefits, and alternatives of the procedure which include but are not limited to risks of anesthesia, bleeding, infection, possible damage to bowel, bladder, or surrounding vasculature which could lead to additional surgery to evaluate any complications. Patient agrees to procedure and wishes to proceed. ACOG/uptodate references given for additional information regarding procedure.
--- NOTE | 2022-03-19 08:34 | EX.PCM.OBRPT ---
Assessment & Plan (1) Depression: COMMENT: no meds counseling encouraged. (2) : QUALIFIERS: Weeks of gestation: 38 weeks Qualified Code(s): Z3A.38 - 38 weeks gestation of COMMENT: carrier and ntd declined. nl NIPT. anatomy reviewed. letrozole conceived Transfer from [facility]. GBS neg (3) Supervision of high risk in second trimester: COMMENT: PRR(tox) boy Cresencio Spouse:Austyn (4) Ectropion of cervix: COMMENT: cervical laceration repaired in OR with multiple vicryl suture applications. plan for 39 week c/d or when goes into labor pt received 2 doses of cytotec during hospital stay 02/14-02/15, Primary section scheduled 03/19 @ 7:30am with JV (5) Choroid plexus cyst: COMMENT: genetics LR normal on 30 week scan Maternal Data Information WESTON Calculator Estimated Delivery Date Method Current WG Current Estimate 03/26/22 LMP (Certain) 39w 0d Details Operative Information Date of Procedure: 03/19/22 Pre-Operative Diagnosis: history of cervical laceration in @ 39 weeks, desires primary section Post-Operative Diagnosis: history of cervical laceration in @ 39 weeks, desires primary section Classification: Scheduled Procedure Type: low transverse investigation specialist #1: Cassidy Morin Type of Anesthesia: Spinal Antibiotic Given: Ancef 2 grams IV x1 Estimated Blood Loss: 300 Time of Delivery: 07:47 Findings Description of Procedure: The patient is a 26 y/o who has a history of cervical laceration earlier in the who presented for primary . Spinal anesthesia was placed without difficulty. Rosado catheter was placed. The patient was placed in the dorsal supine position with leftward tilt. Patient was prepped and draped in the normal sterile fashion. Pfannenstiel skin incision was made with the scalpel and carried through to the underlying layer of fascia with the scalpel. Fascia was nicked in the midline and the incision extended laterally. The rectus bellies were dissected off superiorly and inferiorly with out complication both sharply and bluntly. The peritoneum was entered digitally. The incision was stretched and a low transverse uterine incision was made with the scalpel. The infant's head was delivered atraumatically followed by the anterior and posterior shoulders without complication the rest of the infant delivered. The cord was clamped and cut and the infant was handed off to awaiting nurse. The placenta was delivered spontaneously immediately following and was noted to be intact and have a three-vessel cord. The uterus was exteriorized cleared of all clots and debris, and the incision was closed in a double layer closure using #1 Vicryl and #1 Monocryl. The ovaries and fallopian tubes were noted to be within normal limits. The uterus was returned to the maternal abdomen and gutters were cleared of all clots and debris. The peritoneum was closed with 3-0 Monocryl in a running fashion. Gloves were changed prior to fascial closure. Fascia was closed with 0 PDS in a running fashion. Subcutaneous tissue was copiously irrigated and the skin was closed with 3-0 Monocryl in a subcuticular fashion. Mepilex dressing was applied without complication. Patient was taken to recovery in stable condition. It was discussed with the patient that based on the clinical information obtained during this encounter, combined with her history, at this time I would recommend either or repeat section as desires for future deliveries if further pregnancies are desired. Presentation: Positive for Vertex Amniotic Membrane Rupture Type: Artificial Amniotic Fluid Description: Clear Placental Delivery Description: Manual Removal Placenta Disposition: [facility] Cord Vessel Description: 3 Vessels Cord Entanglement: None Infant A Gender: Male (6 lbs 9 oz ) (1 minute): 8 (5 minute): 9 Delayed Cord Clamping: Yes Complications Risks of Surgery Discussed w/Patient: Bleeding, Anesthesia Risks, Infection, Need for Future C-Sections and Injury to surrounding structure(s) including bowel and bladder Complications: none [facility] Codes Urinary/Genital Urinary/Genital CPT Codes: 76831 Delivery [facility]
[2022-03-19] MEDS: Oxytocin 30 units/NS 500 ml 30 UNITS/500 ML IV.SOLN 167 UNITS IV (08:35)
--- NOTE | 2022-03-19 08:39 | PCM.DC ---
Discharge Instructions Diet Discharge Diet: No restrictions Activity Discharge Activity: May Not Drive (for 2 weeks or while taking narcotic pain medications.), May Shower and May Take a Tub Bath (in 7 days.) May resume sexual activity in: 4-6 weeks Weight Bearing Status: Full weight bearing Lifting Restrictions: 20 pounds Dressing / Incision Call your doctor if your incision/area has: Continuous Slow Oozing, Sudden Increased Bleeding, Increased Pain/ Swelling, Increased Redness and Foul Smelling Discharge Call your doctor if you observe: Fever of 101 or Higher and Using more than 1 pad per hour Suture Line Care: Avoid Pulling/Pushing and Avoid Pinching/Bending Cleanse incision/area with: Soap & Water and Keep Dressing Clean & Dry Follow Up Care Please Follow Up With: Natalia Varghese DO When: Call [phone] to make an appointment for an incision check in 1-2 weeks. Test Results: Test results from this visit will be discussed in further detail at your follow-up appointment, if applicable. Discharge Plan Admission Admit Date/Time: 03/19/22 05:30 Primary Reason for Your Visit: section Attending Provider: Natalia Varghese Primary Care Provider: Melissa Paez Discharge Orders/Prescriptions Prescriptions: New ibuprofen 800 mg tablet 800 mg PO Q8H PRN (Reason: pain) 7 Days Qty: 30 RF: 0 oxycodone-acetaminophen [Percocet] 5-325 mg tablet 1 tab PO Q4H PRN (Reason: pain) 7 Days Qty: 30 RF: 0 Continued SDL-trer-FS-omega 3-fat com #1 27 mg-1 mg-300 mg capsule 27-1-300 mg capsule 1 cap PO DAILY RF: 0 famotidine [Pepcid AC] 20 mg tablet 20 mg PO BID RF: 0 Referrals / Follow Up: Melissa Paez MD [Primary Care Provider] - Disposition Disposition (needs filled in before D/C Order can be placed): Home, Self Care
[2022-03-19] MEDS: Ketorolac 30 MG/ML Syringe IV ×3 (09:37→20:27)
[2022-03-19] MEDS: Lactated Ringers 1,000 ML 100 ML IV (11:38)
[2022-03-19] MEDS: Nalbuphine 10 MG/ML Ampul 5 MG IV (17:28)
[2022-03-19] MEDS: 0.9% Saline Lock 10 ML Syringe IV ×2 (17:29→20:27)
--- NOTE | 2022-03-19 21:09 | NURSING ---
both parents CPR certified, so iPad training not completed at this time. SG, RN
[2022-03-20] MEDS: Acetaminophen 500 MG Tablet 1000 MG PO ×4 (00:06→18:03)
[2022-03-20 00:10] VITALS: BP 106/62; PULSE 68; RESP 16; TEMP 36.1
[2022-03-20] MEDS: 0.9% Saline Lock 10 ML Syringe IV (02:18)
[2022-03-20] MEDS: Ketorolac 30 MG/ML Syringe IV (02:18)
[2022-03-20 04:50] VITALS: BP 108/65; PULSE 74; RESP 16; TEMP 36.3; O2SAT 97
[2022-03-20 05:09] LABS: Hemoglobin 10.1 g/dL (12.0-15.0); Mean Corp Hgb Conc 32.6 g/dL (32-36); Mean Corpuscular Hgb 32.4 pg (27.0-32.0); Mean Corpuscular Volume 99.4 fL (81-99); Mean Platelet Vol. 11.2 fl (6.2-12.0); Platelet Count 169 K/mm3 (150-450); RBC Distribution Width CV 13.1 % (11.6-14.6); RBC Distribution Width SD 47.4 fl (35.1-43.9); Red Blood Count 3.12 M/mm3 (4.2-5.4); White Blood Count 9.6 K/mm3 (4.4-11.0)
[2022-03-20 07:39] VITALS: BP 111/74; PULSE 60; RESP 16; TEMP 36.7; O2SAT 97
[2022-03-20] MEDS: Ibuprofen 600 MG Tablet PO ×3 (09:12→20:24)
--- NOTE | 2022-03-20 10:43 | PCM.PN.OB ---
Subjective Subjective Patient doing well without complaints. Tolerating PO. Ambulating and voiding without difficulty. feeding well. Denies chest pain, shortness of breath, calf pain/swelling, fevers, chills, lightheadedness. Objective Data Objective Data Vital Signs: Vital Signs Temp Pulse Resp BP Pulse Ox 98.1 F 60 16 111/74 97 03/20/22 07:39 03/20/22 07:39 03/20/22 07:39 03/20/22 07:39 03/20/22 07:39 Oxygen Delivery Method Room Air Weight: 186 lb 12.8 oz Body Mass Index (BMI) 32.1 Intake & Output: Intake and Output for Last 24 Hours 03/18/22 03/19/22 03/20/22 23:59 23:59 23:59 Intake Total 2190.78 / 2190.78 Output Total 1500 / 1500 450 / 450 Balance 690.78 / 690.78 -450 / -450 Lab / Micro Data Result Diagrams: 03/20/22 05:00 Labs: Laboratory Results - last 24 hr 03/20/22 05:00: WBC 9.6, RBC 3.12 L, Hgb 10.1 L, Hct 31.0 L, MCV 99.4 H, MCH 32.4 H, MCHC 32.6 D, RDW Std Deviation 47.4 H, RDW Coeff of Vinicius 13.1, Plt Count 169, MPV 11.2 Micro: Microbiology 03/19/22 06:00 Nasal Secretion SARS-CoV-2 Antigen (Rapid) - Final ROS Constitutional Constitutional: Reports systems reviewed and no addt'l complaints, except as documented Cardiovascular Cardiovascular: Reports systems reviewed and no addt'l complaints, except as documented Respiratory/Chest Respiratory/Chest: Reports systems reviewed and no addt'l complaints, except as documented Gastrointestinal Gastrointestinal: Reports systems reviewed and no addt'l complaints, except as documented Physical Exam Const alert, oriented x3 and no apparent distress HEENT Head and Scalp: atraumatic Resp normal respiratory effort GI soft to palpation and non-tender Inspection: incision intact, healing well and drainage (none) Bimanual Exam - Vag & Uterus: uterus non-tender Uterus Palpation: uterus fundus firm (below Umbilicus) Assessment & Plan (1) Depression: COMMENT: no meds counseling encouraged. (2) Status post delivery: COMMENT: OSMANY EMERSON 03/19/22 PLAN: s/p LTCS PPD # 1 1. routine post care 2. breast feeding- support given 3. rh positive 4. rubella immune
[2022-03-20] MEDS: Senna/Docusate Sodium 1 Tablet PO (12:36)
--- NOTE | 2022-03-20 12:48 | CASEMGMT ---
Social Work Assessment Reason for Referral: History of Anxiety and Depression Referral Source: DO Mom: Dana G/P: G1, P0 PNC: Pt states she was using [place] Summa up until 25 weeks and then switched to [place] Control: NuvaRing Baby: Cresencio : 03/19/2022 via C Section Apgars: 8/9 Weight: 2985 G [employer] Impregnating Range Tender: [employer] Impregnating Range Tender Office Breast Feeding SW met with pt (ILANA) to complete initial assessment. Pt's (FRANCIS) Austyn present in room. Pt gave permission for this worker to talk to her in front of her guest. Housing Arrangements: Pt states that she lives in a house with her, her Austyn (FRANCIS) and two dogs. Pt states this baby is her first baby. Transportation: Pt states that she has no transportation issues. Baby Supplies: Pt states that she has all baby supplies needed including Car Seat, Bassinet, Crib, Clothes/Diapers. Support: Pt states that her support is Austyn and that she has additional support from both of their parents and step parents. Education: Pt states that she completed High School and went to College at [employer]. Pt states she has a degree in [employer]. Pt states no learning issues/disabilities. Employment: Pt states that she works at [employer] and plans to take 12 weeks off. 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 Agency Involvement: Pt states none FOB Mental Health/AOD/ DV History: Austyn states that he has history of Anxiety. Austyn states that he takes Zoloft and takes half 25 mg of Zoloft. Austyn denied any AOD use. Both Austyn and Pt denied any DV concerns. Maternal Mental Health History: Referral was placed as pt reported to have Anxiety and Depression. Pt confirms she has Anxiety and Depression. Pt states that before she got she was taking Zoloft. Pt states that she stopped using Zoloft when she was trying to get . Pt states that she stopped taking Zoloft about a year and half ago. Pt states that she used to see a counselor as well but does not currently see one. Pt states that the last time she saw a counselor was in August 2021. Pt states that she is agreeable to resuming Zoloft and going back to Counseling if she feels that she needs it. Pt states that she has good self awareness and agreeable to talking to Austyn about issues or concerns that arise. Pt denied any history of suicidal thoughts/plans/ideations. Pt denied any current suicidal/homicidal thoughts/plans/ideations. Referral packet provided to pt regarding Post Depression and Anxiety. Pt educated on PPD and encouraged to speak to physician if symptoms last longer than 4-5 days. Austyn appeared pleased to also get information as he stated good, I will know what to look out for. Pt educated on Shaken Baby, PPD, and Safe Sleeping and provided information packet. AOD: Pt denied any history. Pt denied any AOD use during .Pt states she does not smoke. When this worker entered the room, pt's baby is crying as Austyn is trying to put clothes on baby. Pt and Austyn worked together well to get baby dressed and mom then started holding baby. Pt then started crying and states I am just emotional. SW provided support to pt. Both pt and Austyn were appropriate with baby and interacting. Pt and Austyn would laugh and smile appropriately during conversation. Pt appears to be bonding well with baby. Pt and Austyn denied additional needs or concerns at this time. SW spoke with RN, RN reports no concerns. Plan: Home with support from FRANCIS Villalpando FINAL INSPECTOR, POLE INSPECTOR
--- NOTE | 2022-03-20 13:24 | NURSING ---
Report received from Crystal MORRISON, taking over pt care at this time.
[2022-03-20 13:37] VITALS: BP 118/76; PULSE 70; RESP 18; TEMP 36.8; O2SAT 96
[2022-03-20 20:10] VITALS: BP 120/80; PULSE 74; RESP 18; TEMP 36.4; O2SAT 97
[2022-03-21] MEDS: Acetaminophen 500 MG Tablet 1000 MG PO ×2 (00:54→06:39)
[2022-03-21] MEDS: oxyCODONE 5 MG Tablet PO (01:00)
[2022-03-21 02:22] VITALS: BP 110/65; PULSE 66; RESP 16; TEMP 36.6; O2SAT 95
[2022-03-21] MEDS: Ibuprofen 600 MG Tablet PO ×2 (02:30→08:57)
[2022-03-21 08:11] VITALS: BP 97/68; PULSE 72; RESP 16; TEMP 36.9; O2SAT 98
[2022-03-21] MEDS: Senna/Docusate Sodium 1 Tablet PO (08:58)
--- NOTE | 2022-03-21 09:11 | PCM.PN.OB ---
Subjective Subjective Patient doing well without complaints. Tolerating PO. Ambulating and voiding without difficulty. feeding well. Denies chest pain, shortness of breath, calf pain/swelling, fevers, chills, lightheadedness. Objective Data Objective Data Vital Signs: Vital Signs Temp Pulse Resp BP Pulse Ox 98.5 F 72 16 97/68 98 03/21/22 08:11 03/21/22 08:11 03/21/22 08:11 03/21/22 08:11 03/21/22 08:11 Oxygen Delivery Method Room Air Weight: 186 lb 12.8 oz Body Mass Index (BMI) 32.1 Intake & Output: Intake and Output for Last 24 Hours 03/19/22 03/20/22 03/21/22 23:59 23:59 23:59 Intake Total 2190.78 / 2190.78 Output Total 1500 / 1500 450 / 450 Balance 690.78 / 690.78 -450 / -450 Lab / Micro Data Result Diagrams: 03/20/22 05:00 Micro: Microbiology 03/19/22 06:00 Nasal Secretion SARS-CoV-2 Antigen (Rapid) - Final ROS Constitutional Constitutional: Reports systems reviewed and no addt'l complaints, except as documented Cardiovascular Cardiovascular: Reports systems reviewed and no addt'l complaints, except as documented Respiratory/Chest Respiratory/Chest: Reports systems reviewed and no addt'l complaints, except as documented Gastrointestinal Gastrointestinal: Reports systems reviewed and no addt'l complaints, except as documented Physical Exam Const alert, oriented x3 and no apparent distress HEENT Head and Scalp: atraumatic Resp normal respiratory effort GI soft to palpation and non-tender Inspection: incision intact, healing well and drainage (none) Bimanual Exam - Vag & Uterus: uterus non-tender Uterus Palpation: uterus fundus firm (below Umbilicus) Assessment & Plan (1) Status post delivery: COMMENT: OSMANY Dupont - KI 03/19/22 PLAN: s/p LTCS PPD # 2 1. routine post care 2. breast feeding- support given 3. rh positive 4. rubella immune
== END 2022-03-21 10:20 | disposition home or self-care (01) | DRG 788 ==
PROVIDERS: Admitting Provider Obstetrics & Gynecology; PCP Internal Medicine; Visit Provider Obstetrics & Gynecology
PROC: 10D00Z1 Extraction of Products of Conception, Low, Open Approach (ICD-10-PCS; CPT 59514; principal; 2022-03-19 07:15)
DX: O99.354 Diseases of the nervous system complicating childbirth (principal); F32.A Depression, unspecified; G93.0 Cerebral cysts; O99.344 Other mental disorders complicating childbirth; Z37.0 Single live birth; O34.43 Maternal care for other abnormalities of cervix, third trimester; N86 Erosion and ectropion of cervix uteri; Z3A.39 39 weeks gestation of pregnancy; Z28.310 Unvaccinated for COVID-19; Z28.21 Immunization not carried out because of patient refusal
CPT/HCPCS: 59050; 81001; 85025; 85027; 86850; 86900; 86901; 87426; 99218; J7120; A4216; G0378; J2405

== ENCOUNTER → 2022-05-04 | Outpatient (CLI) | payer OTHER, SELFPAY ==
[2022-05-08 23:55] LABS: HPV Reflexed? NOT INDICATED
== END | disposition home or self-care (01) ==
LOC: LABSPEC 15:39
PROVIDERS: PCP Internal Medicine; Visit Provider Obstetrics & Gynecology
DX: Z12.4 Encounter for screening for malignant neoplasm of cervix (principal)
CPT/HCPCS: 88175; G0145

== ENCOUNTER → 2023-03-11 | Outpatient (CLI) | payer OTHER, SELFPAY ==
[2023-03-11 08:58] LABS: Absolute Lymphocyte Count 1.98 X10^3/uL (0.83-4.51); Basophil# 0.03 X10^3/uL; Basophil% 0.4 % (0-1); Eosinophil# 0.15 X10^3/uL; Hematocrit 41.3 % (37-47); Hemoglobin 13.2 g/dL (12.0-15.0); Lymphocyte # 1.98 X10^3/ul (0.83-4.51); Lymphocyte % 26.2 % (19-41); Mean Corpuscular Hgb 30.8 pg (27.0-32.0); Mean Corpuscular Volume 96.3 fL (81-99); Mean Platelet Vol. 10.3 fl (6.2-12.0); Monocyte# 0.42 X10^3/uL; Monocyte% 5.5 % (0-10); NRBC Flagged by Analyzer 0 % (0-5); Neutrophil # 4.97 X10^3/uL (2.7-7.7); Neutrophil % 65.6 % (47-70); Platelet Count 278 K/mm3 (150-450); RBC Distribution Width CV 12.2 % (11.6-14.6); RBC Distribution Width SD 42.8 fl (35.1-43.9); Red Blood Count 4.29 M/mm3 (4.2-5.4); White Blood Count 7.6 K/mm3 (4.4-11.0)
[2023-03-11 09:14] LABS: AST(SGOT) 10 U/L (15-37); Alanine Aminotransfer ALT/SGPT 18 U/L (13-56); Albumin, Serum 3.7 g/dL (3.2-5.0); Alkaline Phosphatase 79 U/L (45-117); Anion Gap 5 (5-15); BUN 18 mg/dL (7-18); BUN/Creat Ratio 23.4 RATIO (10-20); Calcium,Total 8.4 mg/dL (8.5-10.1); Chloride 111 mmol/L (98-107); Cholesterol 146 mg/dL (200); Creatinine, Serum 0.77 mg/dL (0.55-1.02); EST Glomerular Filtration Rate 96 mL/min (>60); Est Glom Filt Rate - Afr Amer 116 mL/min (>60); Globulin 3.7 g/dL (2.2-4.2); Glucose 89 mg/dL (74-106); High Density Lipoprotein 54 mg/dL; Potassium 3.9 mmol/L (3.5-5.1); Protein, Total 7.4 g/dL (6.4-8.2); Sodium Level 141 mmol/L (136-145); Triglycerides 51 mg/dL; Very Low Density Lipoprotein 10 mg/dL (5-40)
== END | disposition home or self-care (01) ==
PROVIDERS: PCP Internal Medicine; Referring Provider Internal Medicine; Visit Provider Internal Medicine
DX: F41.9 Anxiety disorder, unspecified (principal); F32.9 Major depressive disorder, single episode, unspecified; E78.5 Hyperlipidemia, unspecified
CPT/HCPCS: 36415; 80053; 80061; 85025

== ENCOUNTER → 2023-07-28 | Outpatient (CLI) | payer OTHER, SELFPAY ==
--- NOTE | 2023-07-28 11:48 | US_ITS ---
INDICATION: spotting EXAMINATION: Ultrasound US OB Transvaginal TECHNIQUE: Transabdominal pelvic ultrasound was performed. Grayscale, spectral waveform, and color flow Doppler evaluation of the adnexa. COMPARISON: No relevant prior comparison study available LMP: [06/16/2023. Beta-hCG: Unknown FINDINGS: UTERUS: 8.9 x 4.8 x 5.5 cm. RIGHT OVARY: 2.1 x 1.4 x 1.4. Normal. LEFT OVARY: 2.7 x 1.9 x 2.3. Normal. FREE FLUID: None. INTRAUTERINE GESTATIONAL SAC(s) (size/shape): 2 intrauterine gestational sacs are seen with what appears to be 2 placentas. Twin A: Gestational sac measures 1.2 cm in mean sac diameter which corresponds to 6 weeks.. YOLK SAC: Identified measuring 3 mm. POLE: Identified CRL 2 mm. ESTIMATED GESTATION AGE: 6 weeks. The WESTON is 03/22/2024. HEART MOTION: 114 bpm. SUBCHORIONIC HEMORRHAGE: None. AMNIOTIC FLUID: Qualitatively normal. Twin B: Gestational sac measures 1.9 cm in mean sac diameter which corresponds to 6 weeks and 6 days weeks.. YOLK SAC: Identified measuring 3 mm. POLE: Identified CRL 3 mm. ESTIMATED GESTATION AGE: 6 weeks and 4 days. The WESTON is 4. HEART MOTION: 114 bpm. SUBCHORIONIC HEMORRHAGE: None. AMNIOTIC FLUID: Qualitatively normal. IMPRESSION: Twin intrauterine as described above is to be dichorionic. Twin A is approximately 6 weeks with an WESTON of 03/22/2024. Twin B is approximately 6 weeks and 4 days with an WESTON of 03/18/2024. Electronically Signed: Vic Peacock MD at 13:25 EDT , INDICATION: spotting EXAMINATION: Ultrasound US OB Transvaginal TECHNIQUE: Transabdominal pelvic ultrasound was performed. Grayscale, spectral waveform, and color flow Doppler evaluation of the adnexa. COMPARISON: No relevant prior comparison study available LMP: [06/16/2023. Beta-hCG: Unknown FINDINGS: UTERUS: 8.9 x 4.8 x 5.5 cm. RIGHT OVARY: 2.1 x 1.4 x 1.4. Normal. LEFT OVARY: 2.7 x 1.9 x 2.3. Normal. FREE FLUID: None. INTRAUTERINE GESTATIONAL SAC(s) (size/shape): 2 intrauterine gestational sacs are seen with what appears to be 2 placentas. Twin A: Gestational sac measures 1.2 cm in mean sac diameter which corresponds to 6 weeks.. YOLK SAC: Identified measuring 3 mm. POLE: Identified CRL 2 mm. ESTIMATED GESTATION AGE: 6 weeks. The WESTON is 03/22/2024. HEART MOTION: 114 bpm. SUBCHORIONIC HEMORRHAGE: None. AMNIOTIC FLUID: Qualitatively normal. Twin B: Gestational sac measures 1.9 cm in mean sac diameter which corresponds to 6 weeks and 6 days weeks.. YOLK SAC: Identified measuring 3 mm. POLE: Identified CRL 3 mm. ESTIMATED GESTATION AGE: 6 weeks and 4 days. The WESTON is 4. HEART MOTION: 114 bpm. SUBCHORIONIC HEMORRHAGE: None. AMNIOTIC FLUID: Qualitatively normal. US/Transvaginal w/Preg US IMPRESSION: Twin intrauterine as described above is to be dichorionic. Twin A is approximately 6 weeks with an WESTON of 03/22/2024. Twin B is approximately 6 weeks and 4 days with an WESTON of 03/18/2024. Electronically Signed: Vic Peacock MD at 13:26 EDT ,
== END | disposition home or self-care (01) ==
LOC: OPUS 11:47
PROVIDERS: Referring Provider Obstetrics & Gynecology; Visit Provider Obstetrics & Gynecology
DX: O26.859 Spotting complicating pregnancy, unspecified trimester (principal); Z3A.00 Weeks of gestation of pregnancy not specified
CPT/HCPCS: 36415; 76817; 84702

== ENCOUNTER → 2023-07-30 | Outpatient (CLI) | payer OTHER, SELFPAY | END | disposition home or self-care (01) | LOC: LAB 11:41 | PROVIDERS: Referring Provider Obstetrics & Gynecology; Visit Provider Obstetrics & Gynecology | DX: O26.859 Spotting complicating pregnancy, unspecified trimester (principal); Z3A.00 Weeks of gestation of pregnancy not specified | CPT/HCPCS: 84702 ==

== ENCOUNTER → 2023-08-04 | Outpatient (CLI) | payer OTHER, SELFPAY ==
[2023-08-08 21:07] LABS: Chlamydia By Nucleic Acid AMP Negative (Negative); Gonococcus By Nucleic Acid AMP Negative (Negative)
== END | disposition home or self-care (01) ==
LOC: LABSPEC 14:06
PROVIDERS: Referring Provider Obstetrics & Gynecology; Visit Provider Obstetrics & Gynecology
DX: Z34.90 Encounter for supervision of normal pregnancy, unspecified, unspecified trimester (principal)
CPT/HCPCS: 87086; 87088; 87491; 87591

== ENCOUNTER → 2023-08-24 | Outpatient (CLI) | payer OTHER, SELFPAY ==
[2023-08-24 11:38] LABS: Absolute Lymphocyte Count 2.09 X10^3/uL (0.83-4.51); Absolute Neutrophil Count 7.2 X10^3/uL (2.0-7.7); Basophil# 0.03 X10^3/uL; Basophil% 0.3 % (0-1); Eosinophil# 0.12 X10^3/uL; Eosinophils% 1.2 % (0-5); Hematocrit 38.1 % (37-47); Hemoglobin 12.6 g/dL (12.0-15.0); Lymphocyte # 2.09 X10^3/ul (0.83-4.51); Lymphocyte % 20.9 % (19-41); Mean Corp Hgb Conc 33.1 g/dL (32-36); Mean Corpuscular Hgb 31.3 pg (27.0-32.0); Mean Corpuscular Volume 94.8 fL (81-99); Mean Platelet Vol. 10.7 fl (6.2-12.0); Monocyte# 0.54 X10^3/uL; Monocyte% 5.4 % (0-10); NRBC Flagged by Analyzer 0 % (0-5); Neutrophil # 7.19 X10^3/uL (2.7-7.7); Neutrophil % 71.9 % (47-70); Platelet Count 304 K/mm3 (150-450); RBC Distribution Width CV 12.6 % (11.6-14.6); RBC Distribution Width SD 43.8 fl (35.1-43.9); Red Blood Count 4.02 M/mm3 (4.2-5.4)
[2023-08-24 12:11] LABS: Hemoglobin A1c 4.8 % (3.8-5.6)
[2023-08-24 12:32] LABS: NATERA MAILED SPECIMEN
[2023-08-24 13:16] LABS: HIV - WCH Non-Reactive (Nonreactive); Hepatitis B Surface Antigen Non-Reactive (Nonreactive); Hepatitis C Antibody Non-Reactive (Nonreactive); Rubella IgG Reactive (Nonreactive); Syphilis Antibodies Non-reactive
== END | disposition home or self-care (01) ==
LOC: PAVLAB 11:09
PROVIDERS: Obstetrics & Gynecology; Referring Provider Obstetrics & Gynecology; Visit Provider Obstetrics & Gynecology
DX: O99.211 Obesity complicating pregnancy, first trimester (principal); Z3A.00 Weeks of gestation of pregnancy not specified
CPT/HCPCS: 36415; 83036; 85025; 86703; 86762; 86780; 86803; 86850; 86900; 86901; 87340

== ENCOUNTER → 2023-12-08 | Outpatient (CLI) | payer OTHER, SELFPAY ==
[2023-12-08 09:58] LABS: Absolute Lymphocyte Count 1.91 X10^3/uL (0.83-4.51); Absolute Neutrophil Count 7.6 X10^3/uL (2.0-7.7); Basophil# 0.04 X10^3/uL; Basophil% 0.4 % (0-1); Eosinophil# 0.11 X10^3/uL; Eosinophils% 1.1 % (0-5); Hematocrit 33.7 % (37-47); Lymphocyte # 1.91 X10^3/ul (0.83-4.51); Lymphocyte % 18.5 % (19-41); Mean Corp Hgb Conc 32.6 g/dL (32-36); Mean Corpuscular Hgb 31.7 pg (27.0-32.0); Mean Corpuscular Volume 97.1 fL (81-99); Mean Platelet Vol. 9.8 fl (6.2-12.0); Monocyte# 0.62 X10^3/uL; NRBC Flagged by Analyzer 0 % (0-5); Neutrophil # 7.55 X10^3/uL (2.7-7.7); Neutrophil % 73.3 % (47-70); Platelet Count 272 K/mm3 (150-450); RBC Distribution Width CV 12.7 % (11.6-14.6); RBC Distribution Width SD 45.2 fl (35.1-43.9); Red Blood Count 3.47 M/mm3 (4.2-5.4); White Blood Count 10.3 K/mm3 (4.4-11.0)
[2023-12-08 10:05] LABS: Glucose Challenge Gest 1H 50g 86 mg/dL (70-140)
--- OUTSIDE RECORDS SUMMARY | 2023-12-08 10:32 | XMS RPT_ITS | CCD ---
Author Name Unknown Address [address] [place] [address] Organization [facility] Care Team Providers Care Hand Carver Name Role Phone NADINE MALAGON Unavailable Unavailable NADINE MALAGON Unavailable Unavailable DANDRE HOBBS Unavailable Unavailable Unavailable Primary Care Provider Unavailtrudy tadeo Unavailable Primary Care Provider UnavailAXEL Stern Attending Unavailable SABAS MONTANO Attending Unavailable SABAS MONTANO Attending Unavailable SHAWN LEWIS Attending Unavailable SABAS MONTANO Attending Unavailable ANAY SALINAS Primary Care Unavailable MCKENNA BELLE Referring Unavailab SUSANNAH Benavidez Attending Unavailable ANAY SALINAS Primary Care Unavailable MCKENNA BELLE Referring Unavailab RAMONA Aguila Attending Unavailable ANAY SALINAS Primary Care Unavailable MCKENNA BELLE Referring Unavailab RAMONA Aguila Attending Unavailable Allergies Allergy Classification Reported Allergen(s) Allergy Type Date of Onset Reaction(s) Facility (1 source) Sulfonamides (Antibiotic) Drug allergy (disorder) [facility] (3 sources) Sulfonamides (Antibiotic); Translations: [SULFA ANTIBIOTICS] Propensity to adverse reactions to drug 8 Rash [facility] (5 sources) Sulfonamides (Antibiotic); Translations: [SULFA (SULFONAMIDE ANTIBIOTICS)] Drug Allergy 7 Rash [facility] Medications Current Medications Medication Drug Class(es) Dates Sig (Normalized) Sig (Original) amoxicillin 875 mg / clavulanate 125 mg oral tablet (1 source) Penicillin-class Antibacterial Start: 09-25-2022 End: 09-30-2022 take 1 tablet by mouth twice daily amoxicillin-clav ulanic acid (AUGMENTIN) 875-125 mg per tablet Indications: Bacterial sinusitis Take 1 tablet by mouth twice daily for 5 days. 10 tablet 0 09/25/2022 09/30/2022 Active Completed/Discontinued Medications Medication Drug Class(es) Dates Sig (Normalized) Sig (Original) albuterol 0.83 mg/ml inhalation solution (4 sources) beta2-Adrenergic Agonist Start: 12-14-2017 take 2.5 mg by inhalation every four hours as needed albuterol (PROVENTIL) 2.5 mg /3 mL (0.083 %) nebulizer solution Use 3 mL via nebulizer every 4 hours as needed for Wheezing/Shortnes s of Breath (tightness in chest, cough). 30 Vial 0 12/14/2017 Active Problems Active Problems Problem Classification Problem Date Documented Date Episodic/Chronic Asthma (1 source) Unspecified asthma, uncomplicated; Translations: [UNSPECIFIED ASTHMA UNCOMPLICATED] Onset: 06-21-2017 Chronic Diseases of mouth; excluding dental (1 source) Other diseases of tongue; Translations: [Other specified conditions of the tongue] Episodic Other aftercare (2 sources) Prevention status; Translations: [jail (current) use of aromatase inhibitors] Onset: 08-28-2021 08-28-2021 Episodic Other complications of (2 sources) Rubella non-immune; Translations: [Rubella non-immune status, antepartum] Onset: 09-04-2021 09-04-2021 Episodic Other congenital anomalies (4 sources) Congenital anomaly of skin; Translations: [Other specified congenital malformations of skin] Onset: 02-27-2007 02-27-2007 Chronic Other female genital disorders (1 source) Ectropion of cervix; Translations: [Erosion and ectropion of cervix uteri] Onset: 10-29-2021 10-29-2021 Episodic Other nervous system disorders (1 source) Muscular dystrophy; 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] Onset: 06-21-2017 Chronic Other nervous system disorders (1 source) Choroid plexus cyst; 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] Onset: 10-29-2021 10-29-2021 Chronic Other and delivery including normal (2 sources) Patient encounter status; Translations: [Encounter for supervision of normal , unspecified, unspecified trimester] Onset: 08-28-2021 08-28-2021 Episodic Other upper respiratory infections (1 source) Bacterial sinusitis; Translations: [Chronic sinusitis, unspecified] Chronic Other upper respiratory infections (1 source) Viral upper respiratory tract infection; Translations: [Acute upper respiratory infection, unspecified] Episodic Residual codes; unclassified (1 source) Left before being seen; Translations: [Procedure and treatment not carried out due to patient leaving prior to being seen by health care provider] Episodic Past or Other Problems Problem Classification Problem Date Documented Da te Episodic/Chronic Abdominal pain (2 sources) Left lower quadrant pain; Translations: [LEFT LOWER QUADRANT PAIN] Onset: 06-21-2017 Episodic Allergic reactions (4 sources) Contact dermatitis; Translations: [Unspecified contact dermatitis, unspecified cause] Onset: 02-27-2007 02-27-2007 Episodic Other aftercare (1 source) jail (current) use of hormonal contraceptives; Translations: [[facility] HORMONAL CONTRACEPTIVES] Onset: 06-21-2017 Episodic Other female genital disorders (1 source) Vaginal bleeding; Translations: [Abnormal uterine and vaginal bleeding, unspecified] Resolved: 10-29-2021 10-29-2021 Chronic Other skin disorders (4 sources) Disorder of sebaceous gland; Translations: [Other specified follicular disorders] Onset: 02-27-2007 02-27-2007 Episodic Other skin disorders (4 sources) Acne; Translations: [Other acne] Onset: 02-27-2007 02-27-2007 Episodic Results Test Name Value Interpretation Reference Range Facil ity Vital Signs Date Time Vital Sign Value Performing Clinician Noah bañuelos 10-28-2021 00:55-0500 Diastolic blood pressure 82 mm[Hg] Elizabeth Hendrix MD Work Phone: [facility] 10-28-2021 00:55-0500 Heart rate 87 /min Elizabeth Hendrix MD Work Phone: [facility] 10-28-2021 00:55-0500 Respiratory rate 16 /min Elizabeth Hendrix MD Work Phone: [facility] 10-28-2021 00:55-0500 Systolic blood pressure 124 mm[Hg] Elizabeth Hendrix MD Work Phone: [facility] Encounters Encounter Date Encounter Type Care Provider Facility Start: 11-24-2023 End: 11-24-2023 ambulatory [facility] Start: 10-27-2023 End: 10-27-2023 ambulatory [facility] Start: 10-12-2022 End: 10-12-2022 ambulatory Axel Hebert MUSICAL INSTRUMENT MAKER OR REPAIRER.BRITTANY Work Phone: Telemedicine Procedures Date Procedure Procedure Detail Performing Clinician Start: 11-26-2020 Microscopic observat ion [Identifier] in Cervix by Cyto stain Elizabeth Hendrix MD Work Phone: Plan of Treatment Date Care Activity Detail Author Start: 11-26-2023 Screening for malign ant neoplasm of cervix Pap smear [facility] Start: 06-24-2022 Influenza vaccination INFLUENZA (#1) [facility] Start: 11-11-2021 End: 11-11-2021 Patient encounter procedure [facility] ROSIN BARREL FILLER Start: 10-24-2021 DEPRESSION ASSESSMENT DEPRESSION ASS ESSMENT [facility] Start: 06-24-2021 Influenza vaccination Flu vaccine (# 1) [facility] Start: 06-05-2020 DTaP/Tdap/Td vaccine (2 - Td or Tdap) DTaP/Tdap/Td vaccine (2 - Td or Tdap) [facility] Start: 2017 PAP TESTING PAP TESTING [facility] Start: 2015 Urine microalbumin profile DTAP,TDAP,TD (1 - Tdap) [facility] Start: 2014 HEPATITIS C SCREENING HEPATITIS C SC REENING [facility] Start: 2014 HIV SCREENING HIV SCREENING [facility] Start: 2010 PEDS TO ADULT TRANSI TION ANNUAL ASSESSMENT PEDS TO ADULT TRANSITION ANNUAL ASSESSMENT [facility] Start: 2008 Depression Monitoring Depression Mon itoring [facility] Start: 2008 PEDS TO ADULT TRANSI TION INITIAL DISCUSSION PEDS TO ADULT TRANSITION INITIAL DISCUSSION [facility] Start: 2007 HPV vaccine (1 - 2-d ose series) HPV vaccine (1 - 2-dose series) [facility] Start: 2001 COVID-19 Vaccine (1) COVID-19 Vaccin e (1) [facility] Start: 1997 Varicella vaccine (1 of 2 - 2-dose childhood series) Varicella vaccine (1 of 2 - 2-dose childhood series) [facility] Start: 1996 COVID-19 VACCINE (#1) COVID-19 VACCI NE (#1) [facility] Start: 1996 HEPATITIS B (1 of 3 - 3-dose series) HEPATITIS B (1 of 3 - 3-dose series) [facility] End: 10-28-2021 C. Trachomatis / N. Gonorrhoeae, DNA Probe [facility] Work Phone: Payers Date Payer Category Payer Unknown [id number] 2020 Unknown MMO MMO [employer] [id number] 2020-Present [phone] [address] [place] [address] PPO [id number] 1996 Unknown [id number] 1996 Unknown [id number] 1996 Unknown [id number] 1959 Unknown [id number] Private Health Insurance [id number] Social History Date Type Detail Facility Start: 11-29-2017 End: 12-14-2017 Tobacco smoking status NHIS Never smoked tobacco [employer] Work Phone: Start: 11-29-2017 End: 12-14-2017 Tobacco use and exposure Smokeless tobacco non-user [employer] Work Phone: Start: 10-28-2021 End: 10-29-2021 Alcohol intake Ex-drinker (finding) [employer] Work Phone: Start: 11-29-2017 History SDOH Alcohol Comment social [facility] Work Phone: Start: 07-03-2021 [facility] Work Phone: Start: 1995 Sex Assigned At Not on file [facility] Work Phone: Exposure to SARS-CoV -2 (event) Not sure [facility] Start: 01-03-2022 End: 10-11-2022 Alcohol intake Current drinker of alcohol (finding) [facility] Clinical Notes 09-22-2022 to 10-12-2022 Axel Hebert APRN.BRITTANY - 10/12/2022 5:06 PM ESTPatient InstructionsSabas Montano APRN.BRITTANY - 09/25/2022 1:32 PM Louisa Lewis APRN.BRITTANY - 09/22/2022 10:57 AM ESTPatient Instructions Note Date & Type Note Facility 10-12-2022 Note HNO ID: [id number] Author: Axel Hebert APRN.ANIMAL NURSERY WORKER Service: ? Author Type: Nurse Practitioner Type: Progress Notes Filed: 10/13/2022 12:06 PM Note Text: Telemedicine Visit - Distance Health Virtual Visit Note Patient seen on [employer] platform. Location of patient: [place] History of Present Illness Maya Guzman is a 27 year old year old female who presents for c/o tongue discoloration. Patient was evaluated on 09/25 - diagnosed with sinusitis and started on Augmentin. States she has had tongue discoloration for the past week - reports tongue is a yellow-orange color. States she can remove discolored areas but then they return. C/o cotton mouth that has been worsening over the past few days and a sore throat. Denies attempting any interventions. PAST MEDICAL HISTORY Diagnosis Date Allergic rhinitis, cause unspecified PAST SURGICAL HISTORY Procedure Laterality Date ADENOIDECTOMY PRIMARY No family history on file. Social History Tobacco Use Smoking status: Never Smokeless tobacco: Never Substance Use Topics Alcohol use: Yes Drug use: No Current Outpatient Medications Medication Sig citalopram hydrobromide (CELEXA) 10 mg tablet Take 10 mg by mouth once daily. metroNIDAZOLE (FLAGYL) 500 mg tablet Take 500 mg by mouth three times daily. ipratropium-albuterol (DUONEB) 0.5 mg-3 mg(2.5 mg base)/3 mL nebu Inhale 3 mL as instructed one time only for 1 dose. methylPREDNISolone (MEDROL, KENYON,) 4 mg Dose-Pack As Instructed per package fluconazole (DIFLUCAN) 150 mg tablet Take 1 tablet for yeast infection symptoms ipratropium bromide (ATROVENT) 42 mcg (0.06 %) nasal spray Use 2 Sprays in the nose four times daily. albuterol (PROVENTIL) 2.5 mg /3 mL (0.083 %) nebulizer solution Use 3 mL via nebulizer every 4 hours as needed for Wheezing/Shortness of Breath (tightness in chest, cough). LEVONORGESTREL (DONNA INTRAUTERINE) by INTRAUTERINE route. No current facility-administered medications for this visit. ALLERGIES Allergen Reactions Sulfa (Sulfonamide * Rash Video Exam (Examination performed via Video enabled technology) General appearance: Alert, oriented, pleasant, in NAD :Yes Ill appearing :No Lethargic appearing :No Eyes: Sclera clear :Yes Conjunctiva without erythema :Yes Ears: Tragus / outer ear tenderness by self palpation :No Oropharynx: normal, no erythema; +thick yellow-orange coating to tongue Frontal sinus tenderness by self palpation;No Maxillary sinus tenderness by self palpation :No Tender cervical adenopathy by self palpation :No Respiratory distress :No Coughing noted :No Audible wheezing noted :No ASSESSMENT/PLAN: 1. Tongue discoloration - ICD9: 529.8, ICD10: K14.8 - NYSTATIN 100,000 UNIT/ML ORAL SUSPENSION - Due to recent antibiotic use, possible thrush; will trial treatment with nystatin - Nystatin as prescribed - Discussed medication dosage, usage, goals of therapy, and side effects. - Follow up in person if symptoms persist or worsen - Red flags discussed for need for in person care - All questions answered Axel Hebert APRN.BRITTANY If you let us know who your primary care provider is, we will send them a notification of today?s visit through our electronic medical records system. Since not all providers have access to our notifications, we strongly encourage you to share the following record of today?s visit with your primary care provider at your next visit. This will help in providing you the best care. If you do not have an established Primary Care physician and would like to continue care with a [facility] Primary Care physician, please ask your provider to place a Establish Primary Care order. Use [address] to manage your care, wherever you are, 16/05, on your mobile device or computer. [employer] connects you to [employer] so you can access all your health information in one place and also schedule and request virtual appointments with primary care providers. [facility] 10-12-2022 History of Present illness Narrative Telemedicine Visit - Distance Health Virtual Visit Note Patient seen on [employer] platform. Location of [place]: [place] History of Present Illness Maya Guzman is a 27 year old year old female who presents for c/o tongue discoloration. Patient was evaluated on 09/25 - diagnosed with sinusitis and started on Augmentin. States she has had tongue discoloration for the past week - reports tongue is a yellow-orange color. States she can remove discolored areas but then they return. C/o cotton mouth that has been worsening over the past few days and a sore throat. Denies attempting any interventions. PAST MEDICAL HISTORY Diagnosis Date Allergic rhinitis, cause unspecified PAST SURGICAL HISTORY Procedure Laterality Date ADENOIDECTOMY PRIMARY <AGE 13 No family history on file. Social History Tobacco Use Smoking status: Never Smokeless tobacco: Never Substance Use Topics Alcohol use: Yes Drug use: No Current Outpatient Medications Medication Sig citalopram hydrobromide (CELEXA) 10 mg tablet Take 10 mg by mouth once daily. metroNIDAZOLE (FLAGYL) 500 mg tablet Take 500 mg by mouth three times daily. ipratropium-albuterol (DUONEB) 0.5 mg-3 mg(2.5 mg base)/3 mL nebu Inhale 3 mL as instructed one time only for 1 dose. methylPREDNISolone (MEDROL, KENYON,) 4 mg Dose-Pack As Instructed per package fluconazole (DIFLUCAN) 150 mg tablet Take 1 tablet for yeast infection symptoms ipratropium bromide (ATROVENT) 42 mcg (0.06 %) nasal spray Use 2 Sprays in the nose four times daily. albuterol (PROVENTIL) 2.5 mg /3 mL (0.083 %) nebulizer solution Use 3 mL via nebulizer every 4 hours as needed for Wheezing/Shortness of Breath (tightness in chest, cough). LEVONORGESTREL (DONNA INTRAUTERINE) by INTRAUTERINE route. No current facility-administered medications for this visit. ALLERGIES Allergen Reactions Sulfa (Sulfonamide * Rash Video Exam (Examination performed via Video enabled technology) General appearance: Alert, oriented, pleasant, in NAD :Yes Ill appearing :No Lethargic appearing :No Eyes: Sclera clear :Yes Conjunctiva without erythema :Yes Ears: Tragus / outer ear tenderness by self palpation :No Oropharynx: normal, no erythema; +thick yellow-orange coating to tongue Frontal sinus tenderness by self palpation;No Maxillary sinus tenderness by self palpation :No Tender cervical adenopathy by self palpation :No Respiratory distress :No Coughing noted :No Audible wheezing noted :No ASSESSMENT/PLAN: 1. Tongue discoloration - ICD9: 529.8, ICD10: K14.8 - NYSTATIN 100,000 UNIT/ML ORAL SUSPENSION - Due to recent antibiotic use, possible thrush; will trial treatment with nystatin - Nystatin as prescribed - Discussed medication dosage, usage, goals of therapy, and side effects. - Follow up in person if symptoms persist or worsen - Red flags discussed for need for in person care - All questions answered Axel Hebert APRN.CNP If you let us know who your primary care provider is, we will send them a notification of today s visit through our electronic medical records system. Since not all providers have access to our notifications, we strongly encourage you to share the following record of today s visit with your primary care provider at your next visit. This will help in providing you the best care. If you do not have an established Primary Care physician and would like to continue care with a [facility] Virtual Primary Care physician, please ask your provider to place a Establish Primary Care order. Use [employer] to manage your care, wherever you are, 16/05, on your mobile device or computer. [employer] connects you to [employer] so you can access all your health information in one place and also schedule and request virtual appointments with primary care providers. documented in this encounter [facility] 09-25-2022 Note HNO ID: [id number] Author: Sabas Montano APRN.CNP Service: ? Author Type: Nurse Practitioner Type: Progress Notes Filed: 09/25/2022 1:41 PM Note Text: Telemedicine Visit - Distance Health Virtual Visit Note Patient seen on [employer] platform. Location of patient: [place] History of Present Illness Maya Guzman is a 27 year old year old female who presents for the past 7 days with symptoms that are:constant and gradually worsening. Symptoms include: Positive for Cough, Nasal congestion, Rhinorrhea, and Face pain/pressure, Negative for Fever OTC meds/remedies that patient has tried: Pt. Seen on 09/22/22. 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 Pt. With worsening symptoms. OTC: Delsym, Mucinex, Tylenol. PAST MEDICAL HISTORY Diagnosis Date Allergic rhinitis, cause unspecified PAST SURGICAL HISTORY Procedure Laterality Date ADENOIDECTOMY PRIMARY No family history on file. Social History Tobacco Use Smoking status: Never Smokeless tobacco: Never Substance Use Topics Alcohol use: Yes Drug use: No Current Outpatient Medications Medication Sig citalopram hydrobromide (CELEXA) 10 mg tablet Take 10 mg by mouth once daily. metroNIDAZOLE (FLAGYL) 500 mg tablet Take 500 mg by mouth three times daily. ipratropium-albuterol (DUONEB) 0.5 mg-3 mg(2.5 mg base)/3 mL nebu Inhale 3 mL as instructed one time only for 1 dose. methylPREDNISolone (MEDROL, KENYON,) 4 mg Dose-Pack As Instructed per package fluconazole (DIFLUCAN) 150 mg tablet Take 1 tablet for yeast infection symptoms ipratropium bromide (ATROVENT) 42 mcg (0.06 %) nasal spray Use 2 Sprays in the nose four times daily. albuterol (PROVENTIL) 2.5 mg /3 mL (0.083 %) nebulizer solution Use 3 mL via nebulizer every 4 hours as needed for Wheezing/Shortness of Breath (tightness in chest, cough). LEVONORGESTREL (DONNA INTRAUTERINE) by INTRAUTERINE route. No current facility-administered medications for this visit. ALLERGIES Allergen Reactions Sulfa (Sulfonamide * Rash Video Exam (Examination performed via Video enabled technology) General appearance: Alert, oriented, pleasant, in NAD :Yes Ill appearing :No Lethargic appearing :No Eyes: Sclera clear :Yes Conjunctiva without erythema :Yes Ears: Tragus / outer ear tenderness by self palpation :No Oropharynx: normal, no erythema Frontal sinus tenderness by self palpation;Yes Maxillary sinus tenderness by self palpation :Yes Tender cervical adenopathy by self palpation :Yes Respiratory distress :No Coughing noted :Yes Audible wheezing noted :No ASSESSMENT/PLAN: 1. Bacterial sinusitis - ICD9: 473.9, 041.9, ICD10: J32.9, B96.89 - Will begin treatment with Augmentin 875 mg PO BID for 5 days - Follow up in one week if symptoms persist or worsen, in person. - AMOXICILLIN 875 MG-POTASSIUM CLAVULANATE 125 MG TABLET -Nasal saline to flush out bacteria -Ibuprofen to decrease pressure pain. -Mucinex (generic is fine) 1200 mg twice daily to help with cough and to thin out mucus -[email or web address] This link shares information about when antibiotics may help and when they may not. - Red flags discussed for need for in person care - All questions answered Sabas Montano APRN.RBITTANY If you let us know who your primary care provider is, we will send them a notification of today?s visit through our electronic medical records system. Since not all providers have access to our notifications, we strongly encourage you to share the following record of today?s visit with your primary care provider at your next visit. This will help in providing you the best care. If you do not have an established Primary Care physician and would like to continue care with a [facility] Virtual Primary Care physician, please ask your provider to place a Establish Primary Care order. Use [employer] to manage your care, wherever you are, 16/05, on your mobile device or computer. [employer] connects you to [employer] so you can access all your health information in one place and also schedule and request virtual appointments with primary care providers. [facility] 09-25-2022 Instructions Sabas Montano APRN.CNP - 09/25/2022 1:41 PM EST Images from the original note were not included. Adult Sinusitis Patient Education What is Sinusitis? Sinusitis [pekd-ect-ejag-tis] is inflammation of the sinuses or swelling of the lining of the sinus cavity or nose. During an infection the sinuses become blocked with fluid causing swelling of the lining of the sinuses. Symptoms: (viral and bacterial infections) Stuffy nose Runny nose Postnasal drip Fever Toothache Headache Tiredness Cough Sore throat Face and head pressure and or pain Common causes: 98% of sinus infections are viral caused by viruses. Risk Factors of Sinusitis Include: Allergies, air pollution, indoor humidity and outdoor temperature changes, andstructural changes in the nose may contribute to sinus pain, pressure and congestion. When to get help? Temperature greater than 100.4 F Symptoms lasting more than 10 days or worsening symptoms greater than 7-10 days. If you do not improve or worsen after a course of antibiotics, you should be re-examined. Diagnosis and Treatment: Your healthcare provider will ask a number of questions about your symptoms and how long they have occurred. If symptoms of sinusitis persist greater than 10 days, it is possible you have a bacterial sinus infection and an antibiotic is prescribed. If it is viral, antibiotics will not help. You may be instructed to take [id number] medications for symptoms. including fever reducers acetaminophen or ibuprofen, nasal saline spray, cough and cold preparations and decongestants as prescribed by the physician, nurse practitioner or physician pediatric physician assistant. Self-Care and Prevention: Rest Fluids for hydration Good hand washing Humidifier Avoid smoking and exposure to second hand smoke Avoid sick contacts documented in this encounter [facility] 09-25-2022 History of Present illness Narrative Telemedicine Visit - Distance Health Virtual Visit Note Patient seen on [employer] platform. Location of [place]: [place] History of Present Illness Maya Guzman is a 27 year old year old female who presents for the past 7 days with symptoms that are:constant and gradually worsening. Symptoms include: Positive for Cough, Nasal congestion, Rhinorrhea, and Face pain/pressure, Negative for Fever OTC meds/remedies that patient has tried: Pt. Seen on 09/22/22. 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 Pt. With worsening symptoms. OTC: Delsym, Mucinex, Tylenol. PAST MEDICAL HISTORY Diagnosis Date Allergic rhinitis, cause unspecified PAST SURGICAL HISTORY Procedure Laterality Date ADENOIDECTOMY PRIMARY <AGE 13 No family history on file. Social History Tobacco Use Smoking status: Never Smokeless tobacco: Never Substance Use Topics Alcohol use: Yes Drug use: No Current Outpatient Medications Medication Sig citalopram hydrobromide (CELEXA) 10 mg tablet Take 10 mg by mouth once daily. metroNIDAZOLE (FLAGYL) 500 mg tablet Take 500 mg by mouth three times daily. ipratropium-albuterol (DUONEB) 0.5 mg-3 mg(2.5 mg base)/3 mL nebu Inhale 3 mL as instructed one time only for 1 dose. methylPREDNISolone (MEDROL, KENYON,) 4 mg Dose-Pack As Instructed per package fluconazole (DIFLUCAN) 150 mg tablet Take 1 tablet for yeast infection symptoms ipratropium bromide (ATROVENT) 42 mcg (0.06 %) nasal spray Use 2 Sprays in the nose four times daily. albuterol (PROVENTIL) 2.5 mg /3 mL (0.083 %) nebulizer solution Use 3 mL via nebulizer every 4 hours as needed for Wheezing/Shortness of Breath (tightness in chest, cough). LEVONORGESTREL (DONNA INTRAUTERINE) by INTRAUTERINE route. No current facility-administered medications for this visit. ALLERGIES Allergen Reactions Sulfa (Sulfonamide * Rash Video Exam (Examination performed via Video enabled technology) General appearance: Alert, oriented, pleasant, in NAD :Yes Ill appearing :No Lethargic appearing :No Eyes: Sclera clear :Yes Conjunctiva without erythema :Yes Ears: Tragus / outer ear tenderness by self palpation :No Oropharynx: normal, no erythema Frontal sinus tenderness by self palpation;Yes Maxillary sinus tenderness by self palpation :Yes Tender cervical adenopathy by self palpation :Yes Respiratory distress :No Coughing noted :Yes Audible wheezing noted :No ASSESSMENT/PLAN: 1. Bacterial sinusitis - ICD9: 473.9, 041.9, ICD10: J32.9, B96.89 - Will begin treatment with Augmentin 875 mg PO BID for 5 days - Follow up in one week if symptoms persist or worsen, in person. - AMOXICILLIN 875 MG-POTASSIUM CLAVULANATE 125 MG TABLET -Nasal saline to flush out bacteria -Ibuprofen to decrease pressure pain. -Mucinex (generic is fine) 1200 mg twice daily to help with cough and to thin out mucus -http://[email or web address].org/pa vida-resources/antibiotics/. This link shares information about when antibiotics may help and when they may not. - Red flags discussed for need for in person care - All questions answered Sabas Montano APRN.CNP If you let us know who your primary care provider is, we will send them a notification of today s visit through our electronic medical records system. Since not all providers have access to our notifications, we strongly encourage you to share the following record of today s visit with your primary care provider at your next visit. This will help in providing you the best care. If you do not have an established Primary Care physician and would like to continue care with a [facility] Virtual Primary Care physician, please ask your provider to place a Establish Primary Care order. Use [employer] to manage your care, wherever you are, 16/05, on your mobile device or computer. [employer] connects you to [employer] so you can access all your health information in one place and also schedule and request virtual appointments with primary care providers. documented in this encounter [facility] 09-22-2022 Note HNO ID: [id number] Author: Shawn Lewis APRN.CNP Service: ? Author Type: Nurse Practitioner Type: Progress Notes Filed: 09/22/2022 10:58 AM Note Text: Visit Request Canceled Notification Sent: 09/22/2022 9:45 AM EST To: Shawn Lewis Type: Attachment: Maya Guzman has canceled their visit request. If needed, he/she can be reached at [phone]. Secure messages may not be received immediately, and should not be used for medical emergencies. If you have a medical emergency, please call 911. [facility] 09-22-2022 Note HNO ID: [id number] Author: Sabas Montano APRN.CNP Service: ? Author Type: Nurse Practitioner Type: Progress Notes Filed: 09/22/2022 10:01 AM Note Text: Telemedicine Visit - Distance Health Virtual Visit Note Patient seen on [employer] Online platform. Location of patient: [place] History of Present Illness Maya Guzman is a 27 year old year old female who presents for the past 3 days with symptoms that are:constant. Symptoms include: Positive for Cough, Nasal congestion, and Sore throat OTC meds/remedies that patient has tried: Ibuprofen. Pt. Is . Wants to know what she can take. PAST MEDICAL HISTORY Diagnosis Date Allergic rhinitis, cause unspecified PAST SURGICAL HISTORY Procedure Laterality Date ADENOIDECTOMY PRIMARY No family history on file. Social History Tobacco Use Smoking status: Never Smokeless tobacco: Never Substance Use Topics Alcohol use: Yes Drug use: No Current Outpatient Medications Medication Sig citalopram hydrobromide (CELEXA) 10 mg tablet Take 10 mg by mouth once daily. metroNIDAZOLE (FLAGYL) 500 mg tablet Take 500 mg by mouth three times daily. ipratropium-albuterol (DUONEB) 0.5 mg-3 mg(2.5 mg base)/3 mL nebu Inhale 3 mL as instructed one time only for 1 dose. methylPREDNISolone (MEDROL, KENYON,) 4 mg Dose-Pack As Instructed per package fluconazole (DIFLUCAN) 150 mg tablet Take 1 tablet for yeast infection symptoms ipratropium bromide (ATROVENT) 42 mcg (0.06 %) nasal spray Use 2 Sprays in the nose four times daily. albuterol (PROVENTIL) 2.5 mg /3 mL (0.083 %) nebulizer solution Use 3 mL via nebulizer every 4 hours as needed for Wheezing/Shortness of Breath (tightness in chest, cough). LEVONORGESTREL (DONNA INTRAUTERINE) by INTRAUTERINE route. No current facility-administered medications for this visit. ALLERGIES Allergen Reactions Sulfa (Sulfonamide * Rash Video Exam (Examination performed via Video enabled technology) General appearance: Alert, oriented, pleasant, in NAD :Yes Ill appearing :No Lethargic appearing :No Eyes: Sclera clear :Yes Conjunctiva without erythema :Yes Ears: Tragus / outer ear tenderness by self palpation :No Oropharynx: mild erythema Frontal sinus tenderness by self palpation;No Maxillary sinus tenderness by self palpation :No Tender cervical adenopathy by self palpation :Yes Respiratory distress :No Coughing noted :Yes Audible wheezing noted :No Centor Criteria - Age (2-14=+1, 15-44=0, >=45 -1): 0 - Tonsillar exudates: 0 - Tender anterior cervical adenopathy: +1 - Fever by history (>38 or 100.4): 0 - Absence of cough: 0 0 points- probability of strep is 1-2.5% 1 point- probability of strep is 5-10% 2 points- probability of strep is 11-17% 3 points- probability of strep is 28-35% 4 points- probability of strep is 51-53% ASSESSMENT/PLAN: 1. Viral upper respiratory tract infection - ICD9: 465.9, ICD10: J06.9 -Pt. Is . Reviewed safe OTC medications. - Discussed viral etiology and rationale for treatment. - Symptomatic treatment with prn analgesia - Supportive care with fluids and rest - Follow up in one week if symptoms persist or sooner if worsening of symptoms Sabas Montano APRN.CNP -Robitussin DM for cough -Nasal saline to flush out bacteria -Ibuprofen to decrease pressure pain. -Mucinex (generic is fine) 1200 mg twice daily to help with cough and to thin out mucus -http://www.choosingwisely.org/pa tient-resources/antibiotics/. This link shares information about when antibiotics may help and when they may not. - Red flags discussed for need for in person care - All questions answered Sabas Montano APRN.ANIMAL NURSERY WORKER If you let us know who your primary care provider is, we will send them a notification of today?s visit through our electronic medical records system. Since not all providers have access to our notifications, we strongly encourage you to share the following record of today?s visit with your primary care provider at your next visit. This will help in providing you the best care. If you do not have an established Primary Care physician and would like to continue care with a [facility] Virtual Primary Care physician, please ask your provider to place a Establish Primary Care order. Use [employer] to manage your care, wherever you are, 16/05, on your mobile device or computer. [employer] connects you to [employer] so you can access all your health information in one place and also schedule and request virtual appointments with primary care providers. [facility] 09-22-2022 History of Present illness Narrative Visit Request Canceled Notification Sent: 09/22/2022 9:45 AM EST To: Shawn Lewis Type: Attachment: Maya Guzman has canceled their visit request. If needed, he/she can be reached at [phone]. Secure messages may not be received immediately, and should not be used for medical emergencies. If you have a medical emergency, please call 911. documented in this encounter [facility] 09-22-2022 Instructions Sabas Montano APRN.CNP - 09/22/2022 10:00 AM EST I Feel So Sick, Don t I Need Antibiotics? Did you know. . . There s only a 1 in 4000 chance that an antibiotic will help most acute upper respiratory infections. But there s a 1 in 4 chance of diarrhea and a 1 in 50 chance of a skin reaction and a 1 in 1000 chance it ll cause an ER visit due to some side effect. Antibiotics can also lead to more resistant infections that are harder to treat. Bottom line: There s little to no benefit to taking antibiotics for most acute upper respiratory tract infections...and the downsides are real. Viruses cannot be treated by antibiotics. Viruses cause most upper respiratory infections, which include head colds, sore throats, bronchitis, and sinus infections. The common cold and influenza do not respond to antibiotics. Less than 10 percent of acute bronchitis cases are caused by bacteria. Most cases of acute ear infections also resolve without antibiotics. Sore throats (pharyngitis) are usually caused by viruses as well. Antibiotics are not recommended unless you have strep throat and only about 15 to 30 percent of pharyngitis cases in children and up to 10 percent of cases in adults are due to strep throat. Almost all cases of acute bacterial sinusitis resolve without antibiotics. There are a few situations in which antibiotics are needed, however. See your health care provider if you have a decreased immune system due to cancer, or if you are taking steroids, have HIV, or have had an organ transplant, or if your symptoms worsen or last longer than 7 to 10 days. Most often you should use the [id number] symptomatic treatment/s that your health care provider has recommended. These would include analgesic products such as acetaminophen (Tylenol ), decongestants, antihistamines, salt water gargles, drinking warm tea, and other methods to help treat the symptoms. Also remember that your best defense against getting the flu is to get a flu shot, but this does not, unfortunately, protect you against the many other viruses out in the environment that cause the other kinds of illnesses other than the actual influenza. documented in this encounter [facility] 09-22-2022 History of Present illness Narrative Telemedicine Visit - Distance Health Virtual Visit Note Patient seen on [employer] platform. Location of patient: [place] History of Present Illness Maya Guzman is a 27 year old year old female who presents for the past 3 days with symptoms that are:constant. Symptoms include: Positive for Cough, Nasal congestion, and Sore throat OTC meds/remedies that patient has tried: Ibuprofen. Pt. Is . Wants to know what she can take. PAST MEDICAL HISTORY Diagnosis Date Allergic rhinitis, cause unspecified PAST SURGICAL HISTORY Procedure Laterality Date ADENOIDECTOMY PRIMARY <AGE 13 No family history on file. Social History Tobacco Use Smoking status: Never Smokeless tobacco: Never Substance Use Topics Alcohol use: Yes Drug use: No Current Outpatient Medications Medication Sig citalopram hydrobromide (CELEXA) 10 mg tablet Take 10 mg by mouth once daily. metroNIDAZOLE (FLAGYL) 500 mg tablet Take 500 mg by mouth three times daily. ipratropium-albuterol (DUONEB) 0.5 mg-3 mg(2.5 mg base)/3 mL nebu Inhale 3 mL as instructed one time only for 1 dose. methylPREDNISolone (MEDROL, KENYON,) 4 mg Dose-Pack As Instructed per package fluconazole (DIFLUCAN) 150 mg tablet Take 1 tablet for yeast infection symptoms ipratropium bromide (ATROVENT) 42 mcg (0.06 %) nasal spray Use 2 Sprays in the nose four times daily. albuterol (PROVENTIL) 2.5 mg /3 mL (0.083 %) nebulizer solution Use 3 mL via nebulizer every 4 hours as needed for Wheezing/Shortness of Breath (tightness in chest, cough). LEVONORGESTREL (DONNA INTRAUTERINE) by INTRAUTERINE route. No current facility-administered medications for this visit. ALLERGIES Allergen Reactions Sulfa (Sulfonamide * Rash Video Exam (Examination performed via Video enabled technology) General appearance: Alert, oriented, pleasant, in NAD :Yes Ill appearing :No Lethargic appearing :No Eyes: Sclera clear :Yes Conjunctiva without erythema :Yes Ears: Tragus / outer ear tenderness by self palpation :No Oropharynx: mild erythema Frontal sinus tenderness by self palpation;No Maxillary sinus tenderness by self palpation :No Tender cervical adenopathy by self palpation :Yes Respiratory distress :No Coughing noted :Yes Audible wheezing noted :No Centor Criteria - Age (2-14=+1, 15-44=0, >=45 -1): 0 - Tonsillar exudates: 0 - Tender anterior cervical adenopathy: +1 - Fever by history (>38 or 100.4): 0 - Absence of cough: 0 0 points- probability of strep is 1-2.5% 1 point- probability of strep is 5-10% 2 points- probability of strep is 11-17% 3 points- probability of strep is 28-35% 4 points- probability of strep is 51-53% ASSESSMENT/PLAN: 1. Viral upper respiratory tract infection - ICD9: 465.9, ICD10: J06.9 -Pt. Is . Reviewed safe OTC medications. - Discussed viral etiology and rationale for treatment. - Symptomatic treatment with prn analgesia - Supportive care with fluids and rest - Follow up in one week if symptoms persist or sooner if worsening of symptoms Sabas Montano APRN.CNP -Robitussin DM for cough -Nasal saline to flush out bacteria -Ibuprofen to decrease pressure pain. -Mucinex (generic is fine) 1200 mg twice daily to help with cough and to thin out mucus -http://www.choosingwisely.org/pa tient-resources/antibiotics/. This link shares information about when antibiotics may help and when they may not. - Red flags discussed for need for in person care - All questions answered Sabas Montano APRN.ANIMAL NURSERY WORKER If you let us know who your primary care provider is, we will send them a notification of today s visit through our electronic medical records system. Since not all providers have access to our notifications, we strongly encourage you to share the following record of today s visit with your primary care provider at your next visit. This will help in providing you the best care. If you do not have an established Primary Care physician and would like to continue care with a [facility] Virtual Primary Care physician, please ask your provider to place a Establish Primary Care order. Use [employer] to manage your care, wherever you are, 16/05, on your mobile device or computer. [employer] connects you to [employer] so you can access all your health information in one place and also schedule and request virtual appointments with primary care providers. documented in this encounter [facility] Diagnosis Patient left without being seen- Primary Surgical or other procedure not carried out because of patient's decision [facility]* Diagnosis Bacterial sinusitis- Primary Unspecified sinusitis (chronic) [facility] Diagnosis Tongue discoloration- Primary Other specified conditions of the tongue [facility] Instructions* Anjali Greenberg MD - 10/28/2021 Follow up appointment with your doctor/survey manager - Keep next scheduled appointment Activity - Normal Activity Call your doctor/survey manager if you have: - leaking fluid - vaginal bleeding - regular contractions: More than 6 contractions in one hour - decreased movement - worsening abdominal (belly) pain - headache, blurry vision, increased swelling, upper abdominal pain If you are going home with contractions that are uncomfortable/painful- we recommend these coping strategies: rhythmic breathing, hydrotherapy, imagery or visualization, gentle massage, walking and changing your position. Treatment Verification: Maya Guzman was assessed on Labor and Delivery for a related visit on 10/28/21. Anjali Greenberg MD [facility] documented in this encounterSUM[facility] Work Phone: Summary Purpose Family History No Family History Records FoundNo Family History Records FoundNo Family History Records FoundNo Family History Records FoundNo Family History Records FoundNo Family History Records Found Advance Directives No Advanced Directives Records FoundDocuments on File Type Date Recorded Patient Delinquency Prevention Social Worker Expl anation ACP-Advance Directive ACP-Power of Pulmonary Physician Additional Source Comments INFORMATION SOURCE (unrecogn ized section and content) DATE CREATED AUTHOR AUTHOR'S ORGANIZ ATION 01/20/2020 [facility] ([place]) DATE CREATED AUTHOR AUTHOR'S ORGANIZ ATION 10/30/2021 [facility] DATE CREATED AUTHOR AUTHOR'S ORGANIZ ATION 01/03/2022 [facility] DATE CREATED AUTHOR AUTHOR'S ORGANIZ ATION 10/16/2022 [facility] DATE CREATED AUTHOR AUTHOR'S ORGANIZ ATION 11/29/2023 [facility] Reason for Visit (unrecogniz ed section and content) Reason Comments Sinusitis Reason Comments Patient Left Without Being Seen Reason Comments Illness Source Comments (unrecognize d section and content) In the event this informatio n is protected by the Federal Confidentiality of Alcohol and Drug Abuse Patient Records regulations: The Federal rules restrict any use of the information to criminally investigate or prosecute any alcohol or drug abuse patient.[facility] the event this information is protected by the Federal Confidentiality of Alcohol and Drug Abuse Patient Records regulations: The Federal rules restrict any use of the information to criminally investigate or prosecute any alcohol or drug abuse patient.[facility] the event this information is protected by the Federal Confidentiality of Alcohol and Drug Abuse Patient Records regulations: The Federal rules restrict any use of the information to criminally investigate or prosecute any alcohol or drug abuse patient.[facility] the event this information is protected by the Federal Confidentiality of Alcohol and Drug Abuse Patient Records regulations: The Federal rules restrict any use of the information to criminally investigate or prosecute any alcohol or drug abuse patient.[facility] FOR RECORDS PERTAINING TO PATIENTS WHO ARE OR HAVE BEEN ENROLLED IN A CHEMICAL DEPENDENCY/SUBSTANCEABUSE PROGRAM, SOME INFORMATION MAY BE OMITTED. This clinical summary was aggregated from multiple sources. Caution should be exercised in using it in the provision of clinical care. This summary normalizes information from multiple sources, and as a consequence, information in this document may materially change the coding, format and clinical context of patient data. In addition, data may be omitted in some cases. CLINICAL DECISIONS SHOULD BE BASED ON THE PRIMARY CLINICAL RECORDS. [facility]. provides no warranty or guarantee of the accuracy or completeness of information in this document.
[2023-12-08 10:41] LABS: HIV - WCH Non-Reactive (Nonreactive); Syphilis Antibodies Non-reactive
[2023-12-08 12:14] LABS: Creatinine, Urine (random) < 13.00 mg/dL (NO RANGE EST.); Protein, Urine (Random) < 6.0 mg/dL (<11.9)
== END | disposition home or self-care (01) ==
PROVIDERS: Obstetrics & Gynecology; PCP Internal Medicine; Referring Provider Obstetrics & Gynecology; Visit Provider Obstetrics & Gynecology
DX: O26.899 Other specified pregnancy related conditions, unspecified trimester (principal); R51.9 Headache, unspecified; Z3A.00 Weeks of gestation of pregnancy not specified
CPT/HCPCS: 36415; 82570; 82950; 84156; 85025; 86703; 86780

== ENCOUNTER 2023-12-14 15:33 | Outpatient (CLI) | payer OTHER, SELFPAY ==
[2023-12-14] VITALS (22 sets, daily range): BP systolic 116–132; BP diastolic 71–84; PULSE 73–111; TEMP 36.8; O2SAT 97–100; BMI 35.0
[2023-12-14 16:09] LABS: Hematocrit 32.8 % (37-47); Hemoglobin 10.7 g/dL (12.0-15.0); Mean Corp Hgb Conc 32.6 g/dL (32-36); Mean Corpuscular Hgb 31.3 pg (27.0-32.0); Mean Corpuscular Volume 95.9 fL (81-99); Mean Platelet Vol. 10.4 fl (6.2-12.0); Platelet Count 278 K/mm3 (150-450); RBC Distribution Width SD 45.1 fl (35.1-43.9); Red Blood Count 3.42 M/mm3 (4.2-5.4); White Blood Count 11.1 K/mm3 (4.4-11.0)
[2023-12-14 16:17] LABS: Protein, Urine (Random) < 6.0 mg/dL (<11.9); Protein:Creat Ratio 344 mg/g CRE (0-200)
[2023-12-14 16:19] LABS: AST(SGOT) 12 U/L (15-37); Alanine Aminotransfer ALT/SGPT 14 U/L (13-56); Creatinine, Serum 0.58 mg/dL (0.55-1.02); EST Glomerular Filtration Rate 132 mL/min (>60); Est Glom Filt Rate - Afr Amer 160 mL/min (>60); Estimated Creatinine Clearance 160.62 ml/min; Uric Acid 3.6 mg/dL (2.6-6.0)
[2023-12-14] MEDS: Acetaminophen 500 MG Tablet 1000 MG PO (16:37)
--- NOTE | 2023-12-14 17:18 | OB.TRI.HP_ITS ---
HPI - General HPI Narrative MAYA SHARIF, is a 28 y/o [place] di twins at 25 weeks 6 days who presents to L&D with the complaint of rapid heart rate, headache, and not feeling well. PIH labs are normal with the exception of mildly increased protein level. She states that she is not drinking much water and was supposed to follow up with cardiology all of her pulse readings and has not done that yet. Maternal Data Information [place]ST[place] Calculator Estimated Delivery Date Method Current WG Current Estimate 03/22/24 LMP (Certain) 25w 6d # 2 PFSH PFSH Medical History Anxiety and depression Asthma Cervical cerclage suture present Choroid plexus cyst Chronic back pain Ectropion of cervix History of pneumonia Hyperlipidemia Infertility Migraine Normal colonoscopy Seasonal allergies Tachycardia Home Medications TAU-nloq-NT-omega 3-fat com #1 27 mg-1 mg-300 mg capsule 1 cap PO DAILY 10/29/20 [History Last Taken 02/13/22 22:00] ondansetron 4 mg disintegrating tablet 4 mg PO Q6H #90 tabs 08/15/23 [Rx Last Taken Unknown] famotidine 20 mg tablet (Pepcid) 20 mg PO DAILY #30 tabs 11/11/23 [Rx Last Taken Unknown] Allergy/AdvReac Type Severity Reaction Status Date / Time Sulfa (Sulfonamide Allergy Rash Verified 12/08/23 10:07 Antibiotics) Family History Mother Depression Heart disease Father Hypertension Grandmother Heart disease Both maternal and Paternal COPD (chronic obstructive pulmonary disease) maternal Surgical History History of adenoidectomy History of colonoscopy Status post delivery Social History adopted: No household members: spouse and children number of children: 1 current occupational status: employed 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 current occupational exposures/hazards: No pets and animals: Yes pets and animals: dog(s) history of recent travel: Yes ([place] March and April) out of state: Yes out of country: No sexually active: Yes Smoking Status: Never smoker alcohol intake: current alcohol intake frequency: a few times a month details: previous to substance use type: does not use well-balanced diet: daily or most days caffeine: No eating out: 1-3 times/week during the past year weight has: increased > 10 lbs what type of physical activity do you participate in: none julián/samaritan: [employer] seatbelt use: always do you feel safe at home: Yes additional social history: 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 Date Name GA/Weeks Outcome Route Bth Weight Gen Labor Lgth Anesthesia Del Locatn Provider FOB 03/19/22 Cresencio 39 live - full term 6# 9oz Male spinal [facility] Natalia Gayle Delivery Date: 03/19/22 Last Updated by: Lorelei Vega primary section Visit Details Expected Delivery Route/Plan RLTCS planned Plans Covid status: [] Flu vaccine: [] Tdap vaccine: [] Rhogam: [] LARC form signed: [] Problem list reviewed and updated with the most current plan of care details and appropriate orders placed. Relevant counseling for the gestational age provided. 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 has mfm consult in. discussed earlier delivery will be needed -?-?-?-?-?-?-?-?-?-?-?-?- B 09/27/23 -?-?-?-?-?-?-?-?-?-?-?-?- 14w 5d 186 lb 6 oz 129/73 Nega tive -?-?-?-?-?-?-?-?-?-?-?-?- Negative A 153 -?-?-?-?-?-?-?-?-?-?-?-?- B 146 A -?-?-?-?-?-?-?-?-?-?-?-?- B -?-?-?-?-?-?-?-?-?-?-?-?- A -?-?-?-?-?-?-?-?-?-?-?-?- B A JV- pt is not fe eling very well today. she has a rapid heart rate and sweating on and off. 2 nights ago her states that she turned white then vomited and felt better. recommend that she does a covid test and calls us with results. recommend to come to ER or triage for IV fluids if does not get better with po hydration at home. currently pulse is normal and regular rate and bp is normal. -?-?-?-?-?-?-?-?-?-?-?-?- B 10/12/23 -?-?-?-?-?-?-?-?-?-?-?-?- 16w 6d 189 lb 121/81 Negative -?-?-?-?-?-?-?-?--?-?-?-?- Negative A 141 -?-?-?-?-?-?-?-?-?-?-?-?- B 134 A -?-?-?-?-?-?-?-?-?-?-?-?- B -?-?-?-?-?-?-?-?-?-?-?-?- A -?-?-?-?-?-?--?-?-?-?-?-?- B A JV- still having tachycardia. suspect normal physiologic changes of . but will consult cardiology for reassurance. planning repeat section pending deivery timing per mfm -?-?-?-?-?-?-?-?-?-?-?-?- B 11/11/23 -?-?-?-?-?-?-?-?-?-?-?-?- 21w 1d 197 lb 102/72 -?-?-?-?-?-?-?-?-?-?-?-?- A 150 -?-?-?-?-?-?-?-?-?-?-?-?- B 140 A -?-?-?-?-?-?-?-?-?-?-?-?- B -?-?-?-?-?-?-?-?-?-?-?-?- A -?-?-?-?-?-?-?-?-?-?-?-?- B A SM- no vb crmapi ng discussed placental location follow up -?-?-?-?-?-?-?-?-?-?-?-?- B 12/08/23 -?-?-?-?-?-?-?-?-?-?-?-?- 25w 0d 204 lb 118/78 Negative -?-?-?-?-?-?-?-?-?-?-?-?- Negative A 140 -?-?-?-?-?-?-?-?-?-?-?-?- B 155 A -?-?-?-?-?-?-?-?-?-?-?-?- B -?-?-?-?-?-?-?-?-?-?-?-?- A -?-?-?-?-?-?-?-?-?-?-?-?- B A SM- no vb lof go od fm no regular ctx -?-?-?-?-?-?-?-?-?-?-?-?- B ROS Constitutional Constitutional: Reports systems reviewed and no addt'l complaints, except as documented Gastrointestinal Gastrointestinal: Denies bloating, constipation, cramping, diarrhea, nausea or vomiting Genitourinary Genitourinary: Reports other Details: Denies vaginal odor, vaginal bleeding, or vaginal discharge ; Denies difficulty urinating or flank pain Physical Exam HEENT normocephalic Resp normal respiratory effort and normal air movement no CVA tenderness Extremity normal to inspection General Extremity: edema bilateral (trace ) NST FHR Rate Baby A Baseline: 140 Variability:: Moderate Accelerations:: 10 x 10 Decelerations:: None NST Reactive:: Yes and Appropriate for gestational age FHR Category:: Category I FHR Rate Baby B Baseline: 145 Variability:: Moderate Accelerations:: 10 x 10 Decelerations:: None NST Reactive:: Yes and Appropriate for gestational age FHR Category:: Category I Assessment & Plan (1) Proteinuria affecting : COMMENT: diagnosed 26 weeks. no hypertension - plan for weekly pih labs (2) Supraventricular tachycardia during : PLAN: Plan patient has all signs of dehydration - headache, proteinuria, tachycardia, fatigue. will start with a 500 cc fluid bolus and an EKG> pt to forward results that were requested by cardiology for better understanding of time of day that the tachycardia happens rpt pih labs in one week. keep growth scan with m next week. Charges/Coding Multi Select Codes Visit Charges Office Visit/Consults: 21025 OV L3 Est 20min Urinary/Genital Urinary/Genital CPT Codes: 01758-53 non-stress test Interp
[2023-12-14] MEDS: LACTATED RINGERS 500 ML 999 ML IV (17:31)
--- NOTE | 2023-12-14 18:01 | EKG12_ITS ---
Test Reason : TACHY Blood Pressure : / mmHG Vent. Rate : 085 BPM Atrial Rate : 085 BPM P-R Int : 190 ms QRS Dur : 080 ms QT Int : 372 ms P-R-T Axes : 020 036 019 degrees QTc Int : 442 ms Normal sinus rhythm Normal ECG Confirmed by JAKUB AGUILAR, STANLEY ([id number]), offline editor ARIELA MENA ([id number]) on 12/16/2023 1:13:49 PM Referred By: Natalia Varghese Confirmed By:STANLEY CALL MD
== END 2023-12-14 18:30 | disposition home or self-care (01) ==
LOC: WPOUT 15:38 → WP 15:38
PROVIDERS: PCP Internal Medicine; Referring Provider Obstetrics & Gynecology; Visit Provider Obstetrics & Gynecology
DX: O99.412 Diseases of the circulatory system complicating pregnancy, second trimester (principal); I47.10 Supraventricular tachycardia, unspecified; O12.12 Gestational proteinuria, second trimester; O30.032 Twin pregnancy, monochorionic/diamniotic, second trimester; O99.282 Endocrine, nutritional and metabolic diseases complicating pregnancy, second trimester; E86.0 Dehydration; O34.211 Maternal care for low transverse scar from previous cesarean delivery; Z3A.26 26 weeks gestation of pregnancy
CPT/HCPCS: 96360; 36415; 59025; 59050; 82565; 82570; 84156; 84450; 84460; 84550; 85027; 87070; 87086; 87205; 93005; 99221; J7120; G0378

== ENCOUNTER → 2023-12-20 | Outpatient (CLI) | payer OTHER, SELFPAY ==
[2023-12-20 09:26] LABS: ALB/GLOB Ratio 0.7 RATIO (0.9-2.4); AST(SGOT) 10 U/L (15-37); Alanine Aminotransfer ALT/SGPT 16 U/L (13-56); Albumin, Serum 2.5 g/dL (3.2-5.0); Alkaline Phosphatase 79 U/L (45-117); Anion Gap 2 (5-15); BUN 8 mg/dL (7-18); BUN/Creat Ratio 15.3 RATIO (10-20); Calcium,Total 8.2 mg/dL (8.5-10.1); Chloride 111 mmol/L (98-107); Creatinine, Serum 0.52 mg/dL (0.55-1.02); EST Glomerular Filtration Rate 148 mL/min (>60); Est Glom Filt Rate - Afr Amer 179 mL/min (>60); Globulin 3.8 g/dL (2.2-4.2); Glucose 85 mg/dL (74-106); Potassium 3.9 mmol/L (3.5-5.1); Protein, Total 6.3 g/dL (6.4-8.2); Sodium Level 139 mmol/L (136-145)
[2023-12-20 10:25] LABS: Absolute Lymphocyte Count 1.83 X10^3/uL (0.83-4.51); Absolute Neutrophil Count 7.2 X10^3/uL (2.0-7.7); Basophil# 0.04 X10^3/uL; Basophil% 0.4 % (0-1); Eosinophil# 0.07 X10^3/uL; Eosinophils% 0.7 % (0-5); Hematocrit 32.5 % (37-47); Hemoglobin 10.4 g/dL (12.0-15.0); Lymphocyte # 1.83 X10^3/ul (0.83-4.51); Lymphocyte % 18.6 % (19-41); Mean Corpuscular Hgb 30.4 pg (27.0-32.0); Mean Platelet Vol. 10.6 fl (6.2-12.0); Monocyte# 0.65 X10^3/uL; Monocyte% 6.6 % (0-10); NRBC Flagged by Analyzer 0 % (0-5); Neutrophil # 7.17 X10^3/uL (2.7-7.7); Neutrophil % 73.1 % (47-70); Platelet Count 278 K/mm3 (150-450); RBC Distribution Width CV 12.8 % (11.6-14.6); RBC Distribution Width SD 44.3 fl (35.1-43.9); Red Blood Count 3.42 M/mm3 (4.2-5.4); White Blood Count 9.8 K/mm3 (4.4-11.0)
[2023-12-20 11:15] LABS: Protein, Urine (Random) 15.4 mg/dL (<11.9); Protein:Creat Ratio 250 mg/g CRE (0-200)
== END | disposition home or self-care (01) ==
LOC: PAVLAB 08:52
PROVIDERS: Advanced Practice Midwife; Obstetrics & Gynecology; PCP Internal Medicine; Referring Provider Obstetrics & Gynecology; Visit Provider Obstetrics & Gynecology
DX: O26.899 Other specified pregnancy related conditions, unspecified trimester (principal); R51.9 Headache, unspecified; Z3A.00 Weeks of gestation of pregnancy not specified
CPT/HCPCS: 36415; 80053; 82570; 84156; 85025

== ENCOUNTER → 2023-12-23 | Outpatient (CLI) | payer OTHER, SELFPAY ==
--- OUTSIDE RECORDS SUMMARY | 2023-12-23 08:01 | XMS RPT_ITS | CCD ---
Author Name Unknown Address [address] [place] [address] Organization [facility] Care Team Providers Care Driver Retraining Instructor Name Role Phone NADINE MALAGON Unavailable Unavailable NADINE MALAGON Unavailable Unavailable DANDRE HOBBS Unavailable Unavailable Unavailable Primary Care Provider Unavailtrudy tadeo Unavailable Primary Care Provider UnavailAXEL Stern Attending Unavailable SABAS MONTANO Attending Unavailable SABAS MONTANO Attending Unavailable SHAWN LEWIS Attending Unavailable SABAS MONTANO Attending Unavailable THOR SALINASONGBE B Primary Care Unavailable MCKENNA BELLE Referring Unavailab SUSANNAH Benavidez Attending Unavailable MCKENNA BELLE Referring Unavailab RAMONA Aguila Attending Unavailable TINA SALINASBE B Primary Care Unavailable MCKENNA BELLE Referring Unavailab RAMONA Aguila Attending Unavailable TINA SALINASBE B Primary Care Unavailable RAMONA SANABRIA Attending Unavailable RAMONA SANABRIA Referring Unavailable BRAD EFMIANONGBE B Primary Care Unavailable Allergies Allergy Classification Reported Allergen(s) Allergy Type Date of Onset Reaction(s) Facility (1 source) Sulfonamides (Antibiotic) Drug allergy (disorder) [facility] (3 sources) Sulfonamides (Antibiotic); Translations: [SULFA [...] Other aftercare (2 sources) Prevention status; Translations: [[facility] (current) use of aromatase inhibitors] Onset: 08-28-2021 [...] 02-27-2007 02-27-2007 Episodic Other aftercare (1 source) 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) use of hormonal contraceptives; Translations: [LEASING CONSULTANT HORMONAL CONTRACEPTIVES] Onset: 06-21-2017 Episodic Other female [...] 82 mm[Hg] Elizabeth Hendrix MD Work Phone: [facility] 10-28-2021 00:55-0500 Heart rate 87 /min Elizabeth Hendrix MD Work Phone: [facility] 10-28-2021 00:55-0500 Respiratory rate 16 /min Elizabeth Hendrix MD Work Phone: [facility] 10-28-2021 00:55-0500 Systolic blood pressure 124 mm[Hg] Elizabeth Hendrix MD Work Phone: [facility] Encounters Encounter Date Encounter Type Care Provider Facility Start: 12-13-2023 ambulatory RAMONA SANABRIA [facility] Start: 11-24-2023 End: 11-24-2023 ambulatory MCKENNA Fuentes [facility] Start: 10-27-2023 End: 10-27-2023 ambulatory ANAY SALINAS 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 Start: 10-24-2021 DEPRESSION ASSESSMENT DEPRESSION ASS ESSMENT [facility] Start: 06-24-2021 Influenza vaccination Flu vaccine (# 1) [facility] Start: 06-05-2020 DTaP/Tdap/Td vaccine (2 - Td or Tdap) DTaP/Tdap/Td vaccine (2 - Td or Tdap) [facility] Start: 2017 PAP TESTING PAP TESTING [facility] Start: 2015 Urine microalbumin profile DTAP,TDAP,TD (1 - Tdap) [facility] Start: 2014 HEPATITIS C SCREENING HEPATITIS C SC REENING [facility] Start: 2014 HIV SCREENING HIV SCREENING [facility] Start: 2010 PEDS TO ADULT TRANSI TION ANNUAL ASSESSMENT PEDS TO ADULT TRANSITION ANNUAL ASSESSMENT [facility] Start: 2008 Depression Monitoring Depression Mon itoring [facility] Start: 2008 PEDS TO ADULT TRANSI TION [...] (1 of 2 - 2-dose childhood series) [facility] Start: 1996 COVID-19 VACCINE (#1) COVID-19 VACCI NE (#1) [facility] Start: 1996 HEPATITIS B (1 of 3 - 3-dose series) HEPATITIS B (1 of 3 - 3-dose series) [facility] End: 10-28-2021 C. Trachomatis / N. Gonorrhoeae, DNA Probe [facility] Work Phone: Payers Date Payer Category Payer Unknown [id number] 2020 Unknown MMO MMO [employer] [id number] 2020-Present [phone] [address] [place] [address] PPO [id number] 1996 Unknown [id number] 1996 Unknown [id number] 1996 Unknown [id number] 1996 Unknown [id number] 1959 Unknown [id number] Private Health Insurance [id number] Social History Date Type Detail Facility Start: 11-29-2017 End: 12-14-2017 Tobacco smoking status ILIS Never smoked tobacco [facility] Work Phone: Start: 11-29-2017 End: 12-14-2017 Tobacco use and exposure Smokeless tobacco non-user [employer] Work Phone: Start: 10-28-2021 End: 10-29-2021 Alcohol intake Ex-drinker (finding) [employer] Work Phone: Start: 11-29-2017 History SDOH Alcohol Comment social [employer] Work Phone: Start: 07-03-2021 [employer] Work Phone: Start: 1996 Sex Assigned At Not on file S [facility] Work Phone: Exposure to SARS-CoV -2 (event) Not sure [facility] Start: 01-03-2022 End: 10-11-2022 Alcohol intake Current drinker of alcohol (finding) [facility] Clinical Notes 09-22-2022 to 10-12-2022 Axel Hebert APRN.BRITTANY - 10/12/2022 5:06 PM ESTPatient InstructionsSabas Montano APRN.BRITTANY - 09/25/2022 1:32 PM Louisa Lewis APRN.CNP - 09/22/2022 10:57 AM ESTPatient Instructions Note Date & Type Note Facility 10-12-2022 Note HNO ID: [id number] Author: Axel Hebert APRN.BRITTANY Service: ? Author Type: Nurse Practitioner Type: Progress Notes Filed: 10/13/2022 12:06 PM Note Text: Telemedicine Visit - Distance Health Virtual Visit Note Patient seen on [facility] Online platform. Location of patient: [place] History of Present Illness Maya Guzman is [...] care - All questions answered Axel Hebert APRN.CAREER DEVELOPMENT COUNSELOR If you let us know who your [...] place a Establish Primary Care order. Use [employer] to manage your care, wherever you are, 16/05, on your mobile device or computer. [employer] connects you to [employer] so you can access all your health information in one place and also schedule and request virtual appointments with primary care providers. [facility] 10-12-2022 History of Present illness Narrative Telemedicine Visit - Distance Health Virtual Visit Note Patient seen on [employer] Online platform. Location of patient: [place] History of Present Illness Maya Guzman is [...] place a Establish Primary Care order. Use [employer] to manage your care, wherever you are, 16/05, on your mobile device or computer. [employer] connects you to [employer] so you can access all your health information in one place and also schedule and request virtual appointments with primary care providers. documented in this encounter [facility] 09-25-2022 Note HNO ID: [id number] Author: Sabas Montano APRN.BRITTANY Service: ? Author Type: Nurse Practitioner Type: Progress Notes Filed: 09/25/2022 1:41 PM Note Text: Telemedicine Visit - Distance Health Virtual Visit Note Patient seen on [employer] Online platform. Location [place] History of Present Illness Maya Guzman is [...] place a Establish Primary Care order. Use [employer] to manage your care, wherever you are, 16/05, on your mobile device or computer. [employer] connects you to [employer] so you can access all your health information in one place and also schedule and request virtual appointments with primary care providers. [facility] 09-25-2022 Instructions Sabas Montano APRN.CNP - 09/25/2022 1:41 PM EST Images from the original note were not included. Adult Sinusitis Patient Education What is Sinusitis? Sinusitis [oipf-ivx-wegm-tis] is inflammation of the sinuses or swelling [...] help. You may be instructed to take ewuj-aeb-rrdlfkr medications for symptoms. including fever reducers acetaminophen or ibuprofen, nasal saline spray, cough and cold preparations and decongestants as prescribed by the physician, nurse practitioner or physician advertising assistant. Self-Care and Prevention: Rest Fluids for hydration Good hand washing Humidifier Avoid smoking and exposure to second hand smoke Avoid sick contacts documented in this encounter [facility] 09-25-2022 History of Present illness Narrative Telemedicine Visit - Distance Health Virtual Visit Note Patient seen on [employer] Online platform. Location [place] History of Present Illness Maya Guzman is [...] place a Establish Primary Care order. Use [employer] to manage your care, wherever you are, 16/05, on your mobile device or computer. [employer] connects you to [employer] so you can access all your health information in one place and also schedule and request virtual appointments with primary care providers. documented in this encounter [facility] 09-22-2022 Note HNO ID: [id number] Author: Shawn Lewis APRN.CNP Service: ? Author Type: Nurse Practitioner Type: Progress Notes Filed: 09/22/2022 10:58 AM Note Text: Visit Request Canceled Notification Sent: 09/22/2022 9:45 AM EST To: Shawn Lewis Type: Attachment: Maya Danielle Guzman has canceled their visit request. If needed, he/she can be reached at [phone]. Secure messages may not be received immediately, and should not be used for medical emergencies. If you have a medical emergency, please call 911. [facility] 09-22-2022 Note HNO ID: [id number] Author: Sabas Montano APRN.CNP Service: ? Author Type: Nurse Practitioner Type: Progress Notes Filed: 09/22/2022 10:01 AM Note Text: Telemedicine Visit - Distance Health Virtual Visit Note Patient seen on [employer] [facility] Online platform. Location of patient: [place] History of Present Illness Maya Guzman is [...] cough and to thin out mucus -http://www.choosingwisely.org/pa avisnt-resources/antibiotics/. This link shares information about when antibiotics may help and when they may not. - Red flags discussed for need for in person care - All questions answered Sabas Montano APRN.CAREER DEVELOPMENT COUNSELOR If you let us know who your [...] place a Establish Primary Care order. Use [employer] to manage your care, wherever you are, 16/05, on your mobile device or computer. [employer] connects you to [employer] so you can access all your health information in one place and also schedule and request virtual appointments with primary care providers. [facility] 09-22-2022 History of Present illness Narrative Visit Request Canceled Notification Sent: 09/22/2022 9:45 AM EST To: Shawn Lewis Type: Attachment: Maya Guzman has canceled their visit request. If needed, he/she can be reached at [phone]. Secure messages may not be received immediately, [...] days. Most often you should use the cghy-kym-scjzxii symptomatic treatment/s that your health care provider [...] Health Virtual Visit Note Patient seen on [employer] Online platform. Location [place] History of Present Illness Maya Guzman is [...] care - All questions answered Sabas Montano APRN.CAREER DEVELOPMENT COUNSELOR If you let us know who your [...] place a Establish Primary Care order. Use [employer] to manage your care, wherever you are, 16/05, on your mobile device or computer. [employer] connects you to [employer] so you can access all your health [...] [facility] Diagnosis Bacterial sinusitis- Primary Unspecified sinusitis (chronic) documented [facility]* Diagnosis Tongue discoloration- Primary Other specified conditions of the tongue [facility]* Instructions* Anjali Greenberg MD - 10/28/2021 Follow up appointment with your doctor/dog food shredder operator - Keep next scheduled appointment Activity - Normal Activity Call your doctor/dog food shredder operator if you have: - leaking fluid - [...] related visit on 10/28/21. Anjali Greenberg MD 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 ACP-Advance Directive ACP-Power of [employer] Additional Source Comments INFORMATION SOURCE (unrecogn ized section and content) DATE CREATED AUTHOR AUTHOR'S ORGANIZ ATION 01/20/2020 [facility] ([place] DATE CREATED AUTHOR AUTHOR'S ORGANIZ ATION 10/30/2021 [facility] DATE CREATED AUTHOR AUTHOR'S ORGANIZ ATION 01/03/2022 [facility] DATE CREATED AUTHOR AUTHOR'S ORGANIZ ATION 10/16/2022 [facility] DATE CREATED AUTHOR AUTHOR'S ORGANIZ ATION 12/14/2023 [facility] Reason for Visit (unrecogniz ed section and [...] BE BASED ON THE PRIMARY CLINICAL RECORDS. [facility] [employer] [facility]. provides no warranty or guarantee of the accuracy or completeness of information in this document.
== END | disposition home or self-care (01) ==
LOC: PSN 07:41
PROVIDERS: PCP Internal Medicine; Referring Provider Internal Medicine Cardiovascular Disease; Visit Provider Internal Medicine Cardiovascular Disease
DX: O99.419 Diseases of the circulatory system complicating pregnancy, unspecified trimester (principal); I47.10 Supraventricular tachycardia, unspecified; Z3A.00 Weeks of gestation of pregnancy not specified
CPT/HCPCS: 93225; 93226

== ENCOUNTER → 2024-01-03 | Outpatient (CLI) | payer OTHER, SELFPAY ==
[2024-01-03 11:16] LABS: ROM Internal Control Test YES-OK TO RESULT pt. (Internal QC); ROM Patient Test Negative (Negative); Record Kit Lot#, ROM+ K1374
== END | disposition home or self-care (01) ==
PROVIDERS: PCP Internal Medicine; Referring Provider Obstetrics & Gynecology; Visit Provider Obstetrics & Gynecology
DX: O99.891 Other specified diseases and conditions complicating pregnancy (principal); N89.8 Other specified noninflammatory disorders of vagina; Z3A.00 Weeks of gestation of pregnancy not specified
CPT/HCPCS: 84112

== ENCOUNTER 2024-02-05 11:05 | Outpatient (CLI) | payer OTHER, SELFPAY ==
[2024-02-05] VITALS (16 sets, daily range): BP systolic 116–137; BP diastolic 58–101; PULSE 70–113; RESP 16; TEMP 37.1; O2SAT 97–99; BMI 36.3
[2024-02-05] MEDS: Lactated Ringers 1,000 ML 999 ML IV (12:20)
[2024-02-05 12:21] LABS: Absolute Lymphocyte Count 1.73 X10^3/uL (0.83-4.51); Absolute Neutrophil Count 5.3 X10^3/uL (2.0-7.7); Basophil# 0.02 X10^3/uL; Basophil% 0.3 % (0-1); Eosinophil# 0.06 X10^3/uL; Eosinophils% 0.8 % (0-5); Hematocrit 32.1 % (37-47); Hemoglobin 10.3 g/dL (12.0-15.0); Lymphocyte # 1.73 X10^3/ul (0.83-4.51); Lymphocyte % 22.4 % (19-41); Mean Corp Hgb Conc 32.1 g/dL (32-36); Mean Corpuscular Hgb 29.5 pg (27.0-32.0); Mean Platelet Vol. 11.2 fl (6.2-12.0); Monocyte# 0.56 X10^3/uL; Monocyte% 7.3 % (0-10); NRBC Flagged by Analyzer 0 % (0-5); Neutrophil % 68.7 % (47-70); Platelet Count 268 K/mm3 (150-450); RBC Distribution Width CV 13.1 % (11.6-14.6); RBC Distribution Width SD 42.5 fl (35.1-43.9); Red Blood Count 3.49 M/mm3 (4.2-5.4); White Blood Count 7.7 K/mm3 (4.4-11.0)
[2024-02-05] MEDS: Betamethasone/Betamethasone 30 MG/5 ML Vial 12 MG IM (12:26)
[2024-02-05 12:43] LABS: Color, Urine Yellow (Yellow); Glucose, Dipstick Normal (Normal); Ketone-Dipstick 5 mg/dl (Negative); Leukocyte Esterase-Dipstick Negative /ul (Negative); Nitrite-Dipstick Negative (Negative); Occult Blood-Urine Negative /ul (Negative); Protein-Dipstick Negative (Negative); Urine Bilirubin Dipstick Negative (Negative); Urine Clarity Clear (Clear); Urine Urobilinogen Normal (Normal)
--- NOTE | 2024-02-05 12:50 | HP.PCM.OB_ITS ---
HPI - General General Date of Admission: 02/05/24 HPI Narrative MAYA SHARIF, is a 28 @ 33 weeks 3 days who presents tp L&D with contractions that are becoming stronger. She questions if baby A is moving less than usual. She denies loss of fluid or vaginal bleeding. She had a prior ce sarean section and plans to have a repeat. Her last growth scan at 31 weeks showed a 0.8% discordance. both babies were weighing 3 lbs 11 oz. Our design painter had a conversation with the patient about our transport rates at 33 weeks and it happens to be 75% with a significant drop off to 30% at 34 weeks and 17% at 35 weeks. The decision is made to transport the patient now to prevent need to separate mom and babies later Maternal Data Information [place] Calculator Estimated Delivery Date Method Current WG Current Estimate 03/22/24 LMP (Certain) 33w 3d # 2 PFSH PFSH Medical History Anxiety and depression Asthma Cervical cerclage suture present Choroid plexus cyst Chronic back pain Ectropion of cervix History of pneumonia Hyperlipidemia Infertility Migraine Normal colonoscopy Seasonal allergies Tachycardia Home Medications [id number]-[id number]-omega 3-fat com #1 27 mg-1 mg-300 mg capsule 1 cap PO DAILY 10/29/20 [History Last Taken 02/04/24] famotidine 20 mg tablet (Pepcid) 20 mg PO DAILY #30 tabs 11/11/23 [Rx Last Taken 02/04/24] folic acid 400 mcg tablet 400 mcg PO DAILY Referral by Dr Rich 01/17/24 [History Last Taken 02/02/24] Allergy/AdvReac Type Severity Reaction Status Date / Time Sulfa (Sulfonamide Allergy Rash Verified 02/05/24 11:26 Antibiotics) Family History Mother Depression Heart disease Father Hypertension Grandmother Heart disease Both maternal and Paternal COPD (chronic obstructive pulmonary disease) maternal Surgical History History of adenoidectomy History of colonoscopy Status post delivery Social History adopted: No household members: spouse and children number of children: 1 current occupational status: employed 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 current occupational exposures/hazards: No pets and animals: Yes pets and animals: dog(s) history of recent travel: Yes ([place] March and [place]) out of state: Yes out of country: No sexually active: Yes Smoking Status: Never smoker alcohol intake: current alcohol intake frequency: a few times a month details: previous to substance use type: does not use well-balanced diet: daily or most days caffeine: No eating out: 1-3 times/week during the past year weight has: increased > 10 lbs what type of physical activity do you participate in: none julián/gnosticist: [employer] seatbelt use: always do you feel safe at home: Yes additional social history: 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 Date Name GA/Weeks Outcome Route Bth Weight Infant Gen Labor Lgth Anesthesia Del [facility] Provider FOB 03/19/22 Cresencio 39 live - full term 6# 9oz Male spinal H Natalia Gayle Delivery Date: 03/19/22 Last Updated by: Lorelei Vega primary section Visit Details Expected Delivery Route/Plan RLTCS planned Plans Covid status: [] Flu vaccine: [] Tdap vaccine: [] Rhogam: [] LARC form signed: completed. Problem list reviewed and updated with the most current plan of care details and appropriate orders placed. Relevant counseling for the gestational age provided. 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 has mfm consult in. discussed earlier delivery will be needed -?-?-?-?-?-?-?-?-?-?-?-?- B 09/27/23 -?-?-?-?-?-?-?-?-?-?-?-?- 14w 5d 186 lb 6 oz 129/73 Nega tive -?-?-?-?-?-?-?-?-?-?-?-?- Negative A 153 -?-?-?-?-?-?-?-?-?-?-?-?- B 146 A -?-?-?-?-?-?-?-?-?-?-?-?- B -?-?-?-?-?-?-?-?-?-?-?-?- A -?-?-?-?-?-?-?-?-?-?-?-?- B A JV- pt is not fe eling very well today. she has a rapid heart rate and sweating on and off. 2 nights ago her states that she turned white then vomited and felt better. recommend that she does a covid test and calls us with results. recommend to come to ER or triage for IV fluids if does not get better with po hydration at home. currently pulse is normal and regular rate and bp is normal. -?-?-?-?-?-?-?-?-?-?-?-?- B 10/12/23 -?-?-?-?-?-?-?-?-?-?-?-?- 16w 6d 189 lb 121/81 Negative -?-?-?-?--?-?-?-?-?-?-?-?- Negative A 141 -?-?-?-?-?-?-?-?-?-?-?-?- B 134 A -?-?-?-?-?-?-?-?-?-?-?-?- B -?-?-?-?-?-?-?-?-?-?-?-?- A -?-?--?-?-?-?-?-?-?-?-?-?- B A JV- still having tachycardia. suspect normal physiologic changes of . but will consult cardiology for reassurance. planning repeat section pending deivery timing per mfm -?-?-?-?-?-?-?-?-?-?-?-?- B 11/11/23 -?-?-?-?-?-?-?-?-?-?-?-?- 21w 1d 197 lb 102/72 -?-?-?-?-?-?-?-?-?-?-?-?- A 150 -?-?-?-?-?-?-?-?-?-?-?-?- B 140 A -?-?-?-?-?-?-?-?-?-?-?-?- B -?-?-?-?-?-?-?-?-?-?-?-?- A -?-?-?-?-?-?-?-?-?-?-?-?- B A SM- no vb crmapi ng discussed placental location follow up -?-?-?-?-?-?-?-?-?-?-?-?- B 12/08/23 -?-?-?-?-?-?-?-?-?-?-?-?- 25w 0d 204 lb 118/78 Negative -?-?-?-?-?-?-?-?-?-?-?-?- Negative A 140 -?-?-?-?-?-?-?-?-?-?-?-?- B 155 A -?-?-?-?-?-?-?-?-?-?-?-?- B -?-?-?-?-?-?-?-?-?-?-?-?- A -?-?-?-?-?-?-?-?-?-?-?--?- B A SM- no vb lof go od fm no regular ctx -?-?-?-?-?-?-?-?-?-?-?-?- B 01/03/24 -?-?-?-?-?-?-?-?-?-?-?-?- 28w 5d 206 lb 4 oz 115/79 Nega tive -?-?-?-?-?-?-?-?-?-?-?-?- Negative A 140 -?-?-?-?-?-?-?-?-?-?-?-?- B 120 A -?-?-?-?-?-?-?-?-?-?-?-?- B -?-?-?-?-?-?-?-?-?-?-?-?- A -?-?-?-?-?-?-?-?-?-?-?-?- B A discussed being off from 34 weeks on, no vb wuestionable LOF rom plus sent. -?-?-?-?-?-?-?-?-?-?-?-?- B 01/16/24 -?-?-?-?-?-?-?-?-?-?--?-?- 30w 4d 208 lb 8 oz Negative -?-?-?-?-?-?-?-?-?-?-?-?- Negative A 141 -?-?-?-?-?-?-?-?-?-?-?-?- B 153 A -?-?-?-?-?-?-?-?-?-?-?-?- B -?-?-?-?-?-?-?-?-?-?-?-?- A -?-?-?-?-?-?-?-?-?-?-?-?- B A LC- no vb/ctx/lo f. good fm. -?-?-?-?-?-?-?-?-?-?-?-?- B 02/01/24 -?-?--?-?-?-?-?-?-?-?-?-?- 32w 6d 213 lb 8 oz 120/81 Nega tive -?-?-?-?-?-?-?-?-?-?-?-?- Negative A 147 -?-?-?-?-?-?-?-?-?-?-?-?- B 135 A -?-?-?-?-?-?-?--?-?-?-?-?- B -?-?-?-?-?-?-?-?-?-?-?-?- A -?-?-?-?-?-?-?-?-?-?-?-?- B A LC- no vb/ctx/lo f. good fm. no concerns LC- no vb/ctx/lof. good fm. no concerns. adequate growth. nst at 36 weeks. -?-?-?-?-?-?-?-?-?-?-?-?- B NST FHR Rate Baby A Baseline: 140 Variability:: Moderate Accelerations:: 15 x 15 Decelerations:: Variable (very small carrot like decelerations x 3 immediately after babies were put on the monitor and resolved.) NST Reactive:: Yes FHR Category:: Category I FHR Rate Baby B Baseline: 140 Variability:: Moderate Accelerations:: None and 15 x 15 Decelerations:: None FHR Category:: Category I ROS Constitutional Constitutional: Reports systems reviewed and no addt'l complaints, except as documented Gastrointestinal Gastrointestinal: Denies bloating, constipation, cramping, diarrhea, nausea or vomiting Genitourinary Genitourinary: Reports other Details: Denies vaginal odor, vaginal bleeding, or vaginal discharge ; Denies difficulty urinating or flank pain Vital Signs Vital Signs Vital Signs: 02/05/24 11:22 02/05/24 11:22 02/05/24 11:22 Temperature Pulse Rate 91 Respiratory Rate Blood Pressure 133/101 H BP Systolic 133 BP Diastolic 101 Pulse Ox 97 02/05/24 11:27 02/05/24 11:27 02/05/24 11:32 Temperature Pulse Rate 111 H 110 H Respiratory Rate Blood Pressure BP Systolic BP Diastolic Pulse Ox 98 02/05/24 11:32 02/05/24 11:41 02/05/24 11:41 Temperature Pulse Rate 74 Respiratory Rate Blood Pressure 119/74 BP Systolic 119 BP Diastolic 74 Pulse Ox 97 02/05/24 11:41 02/05/24 11:56 02/05/24 11:56 Temperature Pulse Rate 74 Respiratory Rate Blood Pressure 126/78 H BP Systolic 126 BP Diastolic 78 Pulse Ox 97 02/05/24 12:33 02/05/24 12:33 02/05/24 12:35 Temperature Pulse Rate 70 Respiratory Rate 16 Blood Pressure 116/63 BP Systolic 116 BP Diastolic 63 Pulse Ox 02/05/24 12:35 02/05/24 12:41 02/05/24 12:41 Temperature 98.8 F Pulse Rate 86 Respiratory Rate Blood Pressure 137/73 H BP Systolic 137 BP Diastolic 73 Pulse Ox Weight Weight: 211 lb 6.4 oz Body Mass Index (BMI) 36.3 Physical Exam HEENT normocephalic Resp normal respiratory effort and normal air movement no CVA tenderness Manual OB Exam: other cs 1.5/70/-2 Extremity normal to inspection General Extremity: edema bilateral (trace ) Labs Labs Labs: Blood Type A POSITIVE Antibody Screen NEGATIVE Hct 32.1 % (37-47) L Hgb 10.3 g/dL (12.0-15.0) L Pap Smear Negative Obstetrics Ultrasound Syphilis Total Ab Non-reactive Rubella IgG Antibody Reactive (Nonreactive) Hep Bs Antigen Non-Reactive (Nonreactive) Hepatitis C Antibody Non-Reactive (Nonreactive) Chlamydia DNA (SHERI) Negative (Negative) N.gonorrhoeae DNA (SHERI) Negative (Negative) HIV 1&2 Antibody Non-Reactive (Nonreactive) Glucose 1 Hr 50 gm 86 mg/dL (70-140) Rhogam given: No Assessment & Plan (1) Threatened labor: (2) Supraventricular tachycardia during : (3) Proteinuria affecting : COMMENT: diagnosed 26 weeks. no hypertension - plan for weekly pih labs (4) GERD (gastroesophageal reflux disease): COMMENT: pepcid (5) Tachycardia: COMMENT: We have no documentation of a rhythm strip or EKG of the patient's tachycardia. I reviewed in detail utilization of her wearable to capture rhythm strip and bring it to the office for us to review. I do not feel any further testing is indicated at this point time until we can accurately capture a rhythm strip with her having symptoms. She appears to be tolerating her twins as expected. We will reevaluate her in December and on a as needed basis. 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 di-di monozyqotic. (7) Previous delivery affecting : COMMENT: plan RLTCS. Scheduled for 03/09 @ 7:15 with JV (8) Dichorionic diamniotic twin gestation: COMMENT: seen at new ob visit 36 weeks NST MFM q4 week growth delivery on 03/09 repeat LTCS with JV (9) Supervision of high-risk : COMMENT: PRR , [place] 03/22/24 [facility] Cersencio Austyn (10) : QUALIFIERS: Weeks of gestation: 32 weeks Qualified Code(s): Z3A.32 - 32 weeks gestation of COMMENT: NIPT low risk and carrier testing. nl anatomy (11) Anxiety and depression: COMMENT: zoloft in past- stopped working. celexa in the past. start effexor, ativan prn, counseling referral PLAN: Plan plan for maternal transport now. pt has IV fluid bolus running Celestone 12.5 mg im given procardia 10 mg po given. Charges/Coding Multi Select Codes Visit Charges Office Visit/Consults: 83978 OV L3 Est 20min Urinary/Genital Urinary/Genital CPT Codes: 21137-70 non-stress test Interp
[2024-02-05] MEDS: NIFEdipine 10 MG Capsule PO (12:55)
[2024-02-05 13:02] LABS: Syphilis Antibodies Non-reactive
[2024-02-05] MEDS: 0.9% Saline Lock 10 ML Syringe IV (13:04)
== END 2024-02-05 14:30 | disposition short-term general hospital (02) ==
LOC: WPOUT 11:10 → WP 11:10
PROVIDERS: PCP Internal Medicine; Referring Provider Obstetrics & Gynecology; Visit Provider Obstetrics & Gynecology
DX: O47.03 False labor before 37 completed weeks of gestation, third trimester (principal); O99.413 Diseases of the circulatory system complicating pregnancy, third trimester; O12.13 Gestational proteinuria, third trimester; O99.613 Diseases of the digestive system complicating pregnancy, third trimester; O34.219 Maternal care for unspecified type scar from previous cesarean delivery; O99.343 Other mental disorders complicating pregnancy, third trimester; F41.9 Anxiety disorder, unspecified; F32.A Depression, unspecified; K21.9 Gastro-esophageal reflux disease without esophagitis; I47.10 Supraventricular tachycardia, unspecified; Z3A.33 33 weeks gestation of pregnancy
CPT/HCPCS: 96365; 36415; 59025; 59050; 76815; 81002; 85025; 86780; 86850; 86900; 86901; 87086; 87088; 96372; 99221; J7120; A4216; G0378; J0702

== ENCOUNTER 2024-02-22 10:04 | Inpatient (IN) | payer OTHER, SELFPAY ==
[2024-02-22] VITALS (22 sets, daily range): BP systolic 115–142; BP diastolic 59–98; PULSE 68–105; RESP 15–25; TEMP 36.4–37.1; O2SAT 95–100; BMI 36.6
--- NOTE | 2024-02-22 | PLAC_PTH ---
PATIENT: MAYA SHARIF LOC: WP U#:[id number] AGE/SX: 28/F ROOM: WP006 RE02/22/[address]: Dr. Natalia Varghese DO : 1995 BED: 1 DIS: 02/25/2024 SPEC #: [id number] RECD: 02/23/24 09:10 STATUS: JULIANNA MARYA #: [id number] LJ: 02/22/24 00:[address]: Natalia Varghese DEPT: SURGICAL PATHOLOGY RECD BY: Kenyetta Merritt ENTERED: 02/23/24 09:11 SP TYPE: PLACENTA OTHR DR: Dr. Melissa Paez MD Tissues: Placenta, NOS Procedures: Surgery Specimen Level V HEADER OPERATION: section PRE-OP DIAGNOSIS: Twins TISSUE SUBMITTED: Placenta MICROSCOPIC DIAGNOSIS Twin Placenta: Dichorionic and diamniotic twin placenta (660 gm). Placenta A- Placental disc: third trimester placenta Membranes - no pathologic diagnosis. Umbilical cord - three blood vessels and no pathologic diagnosis. Placenta B- Placenta disc - third trimester placenta Membranes - no pathologic diagnosis Umbilical cord - three blood vessels and no pathologic diagnosis. SJ: 02/27/24 MICROSCOPIC DESCRIPTION Slides are reviewed. GROSS DESCRIPTION SPECIMEN: TWIN PLACENTA / CLINICAL INFORMATION: A. Weight: A - 2.205_ kg; B - 2.315 kg B. Gestational Age: 35 weeks C. Sex: Baby A- Female, Baby B- female The specimen consists of twin placenta with single placental disc and two umbilical cords and two amniotic sacs. PLACENTAL WEIGHT (POST FIXATION): 660gm PLACENTAL DIMENSIONS: 24.0 x 18.0 x 3.0cm PLACENTAL SHAPE: Usual ovoid PLACENTAL WEIGHT FOR GESTATIONAL AGE: Within 10-99th percentile PLACENTA A: MEMBRANES - Present A. Insertion: Marginal B. Site of rupture from edge: at edge of placental disc C. Color of membrane: Stallworth-saldana D. Abnormalities: None UMBILICAL CORD - Present A. Color: Stallworth-saldana B. Insertion: Marginal C. Length: 23.0 D. Diameter: 1.3 E. Number of vessels: Three F. Abnormalities: None PLACENTA B: MEMBRANES - Present A. Insertion: Marginal B. Site of rupture from edge: at edge of placental disc C. Color of membrane: Stallworth-saldana D. Abnormalities: None UMBILICAL CORD - Present A. Color: Stallworth-saldana B. Insertion: Marginal/ membranous C. Length: 28.0 D. Diameter: 1.2 E. Number of vessels: Three F. Abnormalities: None PLACENTAL DISC - Present A. Color of surface: Stallworth-saldana B. surface abnormalities: None C. Maternal cotyledons: Intact with minimal tears D. Attached retro placental clot: No clot E. Cut surface: Dark red and spongy F. Lesions: None G. Separate clot: Absent (Dr. French) 1&2. dividing membranous septum 3. Umbilical cord, designated A ( end marked in black) 4. Peripheral membrane placenta A 5-7. Placental disc A 8. Umbilical cord B, ( end inked black). 9. Peripheral membranes B 10-12. Placental disc B AM/mr 02/24/24 TC:5 CPT: 65192 x2
[2024-02-22] MEDS: Lactated Ringers 1,000 ML 150 ML IV ×2 (10:37→13:41)
[2024-02-22 11:05] LABS: Absolute Lymphocyte Count 1.82 X10^3/uL (0.83-4.51); Absolute Neutrophil Count 5.6 X10^3/uL (2.0-7.7); Basophil# 0.02 X10^3/uL; Basophil% 0.2 % (0-1); Eosinophil# 0.07 X10^3/uL; Eosinophils% 0.9 % (0-5); Hematocrit 31.6 % (37-47); Lymphocyte # 1.82 X10^3/ul (0.83-4.51); Lymphocyte % 22.6 % (19-41); Mean Corp Hgb Conc 31.6 g/dL (32-36); Mean Corpuscular Hgb 28.7 pg (27.0-32.0); Mean Corpuscular Volume 90.8 fL (81-99); Mean Platelet Vol. 11.6 fl (6.2-12.0); Monocyte# 0.46 X10^3/uL; Monocyte% 5.7 % (0-10); NRBC Flagged by Analyzer 0 % (0-5); Neutrophil # 5.63 X10^3/uL (2.7-7.7); Neutrophil % 70.1 % (47-70); Platelet Count 244 K/mm3 (150-450); RBC Distribution Width CV 13.8 % (11.6-14.6); RBC Distribution Width SD 44.9 fl (35.1-43.9); Red Blood Count 3.48 M/mm3 (4.2-5.4)
[2024-02-22 11:15] LABS: Protein, Urine (Random) < 6.0 mg/dL (<11.9); Protein:Creat Ratio 304 mg/g CRE (0-200)
[2024-02-22] MEDS: Acetaminophen 500 MG Tablet 1000 MG PO ×2 (11:47→18:28)
[2024-02-22 11:51] LABS: Syphilis Antibodies Non-reactive
[2024-02-22 12:22] LABS: Group B Strep DNA By PCR Negative (Negative); Internal Control PASS; Probe Check PASS; Specimen Processing Control PASS
--- NOTE | 2024-02-22 13:17 | HP.PCM.OB_ITS ---
HPI - General General Date of Admission: 02/22/24 HPI Narrative MAYA SHARIF, is a 28 y/o @ 35 weeks 6 days F who presents to L&D from the office due to the complaint of visual changes described as spider webs in corners of vision when I turn my head and blurry vision Her blood pressure was first noted to be 138/92 and she has 300mg of protein in her urine. The definition of pre-eclampsia with severe features was made. The plan is for a repeat section today. Maternal Data Information [place] Calculator Estimated Delivery Date Method Current WG Current Estimate 03/22/24 LMP (Certain) 35w 6d # 2 PFSH PFSH Medical History Anxiety and depression Asthma Cervical cerclage suture present Choroid plexus cyst Chronic back pain Ectropion of cervix History of pneumonia Hyperlipidemia Infertility Migraine Normal colonoscopy Seasonal allergies Tachycardia Home Medications [id number] 3-fat com #1 27 mg-1 mg-300 mg capsule 1 cap PO DAILY 10/29/20 [History Last Taken 02/22/24 08:00] famotidine 20 mg tablet (Pepcid) 20 mg PO DAILY heartburn #30 tabs 11/11/23 [Rx Last Taken 02/22/24 08:00] folic acid 400 mcg tablet 400 mcg PO DAILY Referral by Dr Rich 01/17/24 [History Last Taken 02/22/24 08:00] Allergy/AdvReac Type Severity Reaction Status Date / Time Sulfa (Sulfonamide Allergy Rash Verified 02/22/24 10:31 Antibiotics) Family History Mother Depression Heart disease Father Hypertension Grandmother Heart disease Both maternal and Paternal COPD (chronic obstructive pulmonary disease) maternal Surgical History History of adenoidectomy History of colonoscopy Status post delivery Social History adopted: No household members: spouse and children number of children: 1 current occupational status: employed 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 current occupational exposures/hazards: No pets and animals: Yes pets and animals: dog(s) history of recent travel: Yes ([place] March and April) out of state: Yes out of country: No sexually active: Yes Smoking Status: Never smoker alcohol intake: current alcohol intake frequency: a few times a month details: previous to substance use type: does not use well-balanced diet: daily or most days caffeine: No eating out: 1-3 times/week during the past year weight has: increased > 10 lbs what type of physical activity do you participate in: none julián/roman catholic: Episcopal seatbelt use: always do you feel safe at home: Yes additional social history: 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 Date Name GA/Weeks Outcome Route Bth Weight Infant Gen Labor Lgth Anesthesia Del Locatn Provider FOB 03/19/22 Cresencio 39 live - full term 6# 9oz Male spinal [facility] Delivery Date: 03/19/22 Last Updated by: Lorelei Vega primary section Visit Details Expected Delivery Route/Plan RLTCS planned Plans Covid status: [] Flu vaccine: [] Tdap vaccine: [] Rhogam: [] LARC form signed: completed. Problem list reviewed and updated with the most current plan of care details and appropriate orders placed. Relevant counseling for the gestational age provided. Continue routine care and follow up unless otherwise noted in visit notes/problem list details OB Flowsheet Initial Weight: Not Recorded Date -?-?-?-?-?-?-?-?-?-?-?-?- EGA Weight BP Urine Prot -?-?-?-?-?-?-?-?-?-?-?-?- Glucose FHR FuHt Pres Dilation -?-?-?-?-?-?-?-?-?-?-?-?- Effaced St Visit Note 08/04/23 -?-?-?-?-?-?-?-?-?-?-?-?- 7w 0d 189 lb 8 oz 120/68 -?-?-?-?-?-?-?-?-?-?-?-?- A 150 -?-?-?-?-?-?-?-?-?-?-?-?- B 150 A -?-?-?-?-?-?-?-?-?-?-?-?- B -?-?-?-?-?-?-?-?-?-?-?-?- A -?-?-?-?-?-?-?-?-?-?-?-?- B A SM- no vb crmpai ng has nause and vomiting improved with zofran, needs to be able to group care worker. SM- no vb crmpaing has nause and vomiting improved with zofran, needs to be able to group care worker.5mm subchorionic hemorrhage seen -?-?-?-?-?-?-?-?-?-?-?-?- B 09/09/23 -?-?-?-?-?-?-?-?-?-?-?-?- 12w 1d 187 lb 114/78 Negative -?-?-?-?-?-?-?-?-?-?-?-?- Negative A 153 -?-?-?-?-?-?-?-?-?-?-?-?- B 159 A -?-?-?-?-?-?-?-?-?-?-?-?- B -?-?-?-?-?-?-?-?-?-?-?-?- A -?-?-?-?-?-?-?-?-?-?-?-?- B A JV- discussed ni pt confirmed monozygosity. has mfm consult in. discussed earlier delivery will be needed -?-?-?-?-?-?-?-?-?-?-?-?- B 09/27/23 -?-?-?-?-?-?-?-?-?-?-?-?- 14w 5d 186 lb 6 oz 129/73 Nega tive -?-?-?-?-?-?-?-?-?-?-?-?- Negative A 153 -?-?-?-?-?-?-?-?-?-?-?-?- B 146 A -?-?-?-?-?-?-?-?-?-?-?-?- B -?-?-?-?-?-?-?-?-?-?-?-?- A -?-?-?-?-?-?-?-?-?-?-?-?- B A JV- pt is not fe eling very well today. she has a rapid heart rate and sweating on and off. 2 nights ago her states that she turned white then vomited and felt better. recommend that she does a covid test and calls us with results. recommend to come to ER or triage for IV fluids if does not get better with po hydration at home. currently pulse is normal and regular rate and bp is normal. -?-?-?-?-?-?-?-?-?-?-?-?- B 10/12/23 -?-?-?-?-?-?-?-?-?-?-?-?- 16w 6d 189 lb 121/81 Negative -?-?-?-?-?-?-?-?-?-?-?-?- Negative A 141 -?-?-?-?-?-?-?-?-?-?-?-?- B 134 A -?-?-?-?-?-?-?-?-?-?-?-?- B -?-?-?-?-?-?-?-?-?-?-?-?- A -?-?-?-?-?-?-?-?-?-?-?--?- B A JV- still having tachycardia. suspect normal physiologic changes of . but will consult cardiology for reassurance. planning repeat section pending deivery timing per mfm -?-?-?-?-?-?-?-?-?-?-?-?- B 11/11/23 -?-?-?-?-?-?-?-?-?-?-?-?- 21w 1d 197 lb 102/72 -?-?-?-?-?-?-?-?-?-?-?-?- A 150 -?-?--?-?-?-?-?-?-?-?-?-?- B 140 A -?-?-?-?-?-?-?-?-?-?-?-?- B -?-?-?-?-?-?-?-?-?-?-?-?- A -?-?-?-?-?-?-?-?-?-?-?-?- B A SM- no vb crmapi ng discussed placental location follow up -?-?-?-?-?-?-?-?-?-?-?-?- B 12/08/23 -?-?-?-?-?-?-?-?-?-?-?-?- 25w 0d 204 lb 118/78 Negative -?-?-?-?-?-?-?-?-?-?-?-?- Negative A 140 -?-?-?-?-?-?-?-?-?-?-?-?- B 155 A -?-?-?-?-?-?-?-?-?-?-?-?- B -?-?-?-?-?-?-?-?-?-?-?-?- A -?-?-?-?-?-?-?-?-?-?-?-?- B A SM- no vb lof go od fm no regular ctx -?-?-?-?-?-?-?-?-?-?-?-?- B 01/03/24 -?-?-?-?-?-?-?-?-?-?-?-?- 28w 5d 206 lb 4 oz 115/79 Nega tive -?-?-?-?-?-?-?-?-?-?-?-?- Negative A 140 -?-?-?-?-?-?-?-?-?-?-?-?- B 120 A -?-?-?-?-?-?-?-?-?-?-?-?- B -?-?-?-?-?-?-?-?-?-?-?-?- A -?-?-?-?-?-?-?-?-?-?-?-?- B A discussed being off from 34 weeks on, no vb wuestionable LOF rom plus sent. -?-?-?-?-?-?-?-?-?-?-?-?- B 01/16/24 -?-?-?-?-?-?-?-?-?-?-?-?- 30w 4d 208 lb 8 oz Negative -?-?-?-?-?-?-?-?-?-?-?-?- Negative A 141 -?-?-?-?-?-?-?-?-?-?-?-?- B 153 A -?-?-?-?-?-?-?-?-?-?-?-?- B -?-?-?-?-?-?-?-?-?-?-?-?- A -?-?-?-?-?-?-?-?-?-?-?-?- B A LC- no vb/ctx/lo f. good fm. -?-?-?-?-?-?-?-?-?-?-?-?- B 02/01/24 -?-?-?-?-?-?-?-?-?-?-?--?- 32w 6d 213 lb 8 oz 120/81 Nega tive -?-?-?-?-?-?-?-?-?-?-?-?- Negative A 147 -?-?-?-?-?-?-?-?-?-?-?-?- B 135 A -?-?-?-?-?-?-?-?-?-?-?-?- B -?-?-?-?-?-?-?-?-?-?-?-?- A -?-?-?-?-?-?-?-?-?-?-?-?- B A LC- no vb/ctx/lo f. good fm. no concerns LC- no vb/ctx/lof. good fm. no concerns. adequate growth. nst at 36 weeks. -?-?-?-?-?-?-?-?-?-?-?-?- B 02/10/24 -?-?-?-?-?-?-?-?-?-?-?-?- 34w 1d 216 lb 8 oz 128/87 Nega tive -?-?-?-?-?-?-?-?-?-?-?-?- Negative A 133 -?-?-?-?-?-?-?-?-?-?-?-?- B 141 A Cephalic -?-?-?-?-?-?-?-?-?-?-?-?- B Transverse 1.5 -?-?-?-?-?-?-?-?-?-?-?-?- 80 A -2 -?-?-?-?-?-?-?-?-?-?-?-?- B A JV- still having intermittent cramping. was discharged after 3 [address] at [facility] and is status post steroids. cx unchanged from last week. labor precautions discussed -?-?-?-?-?-?-?-?-?-?-?-?- B 02/14/24 -?-?-?-?-?-?-?-?-?-?-?-?- 34w 5d 212 lb 126/86 -?-?-?-?-?-?-?-?-?-?-?-?- A 145 -?-?-?-?-?-?-?-?-?-?--?-?- B 140 A Cephalic -?-?-?-?-?-?-?-?-?-?-?-?- B Transverse -?-?-?-?-?-?-?-?-?-?-?-?- A -?-?-?-?-?-?-?-?-?-?-?-?- B A SM- no vb lof go od fm no regular ctx some intermittent pressure -?-?-?-?-?-?-?-?-?-?-?-?- B 02/22/24 -?-?-?-?-?-?-?-?-?-?-?-?- 35w 6d 213 lb 4 oz 137/89 Trac e -?-?--?-?-?-?-?-?-?-?-?-?- Negative A 131 -?-?-?-?-?-?-?-?-?-?-?-?- B 144 A Cephalic -?-?-?-?-?-?-?-?-?-?-?-?- B Cephalic 2 -?-?-?-?-?-?-?-?-?-?-?-?- A -?-?-?-?-?-?-?-?-?-?-?-?- B A JV- pt is having visual changes, first bp was 139/92, has protein in urine today. sending to L&D now. -?-?-?-?-?-?-?-?-?-?-?-?- B ROS Constitutional Constitutional: Denies change in weight, fatigue, fever(s), headache(s), poor appetite or weakness Eyes Eyes: Reports other Details: seeing spider web like spots in eyes and blurry vision ENT HEENT: Denies dizziness, headache(s), loss taste/smell or sore throat Cardiovascular Cardiovascular: Denies chest pain, dizziness, dyspnea, irregular heart rhythm, leg edema, palpitations, rapid heart rate or vomiting Respiratory/Chest Respiratory/Chest: Denies chest tightness, cough, dyspnea or breast pain Gastrointestinal Gastrointestinal: Denies abdominal pain, anorexia, constipation, cramping, diarrhea, hemorrhoids, vomiting or weight changes Genitourinary Genitourinary: Denies dysuria, flank pain, genital lesions, genital pain, urinary frequency or urinary urgency Musculoskeletal Musculoskeletal: Denies back pain, difficulty walking, joint pain, limited range of motion, muscle cramps or numbness Integumentary Integumentary: Denies lesions or unusual bruising Neurologic Neurologic: Denies abnormal movements, abnormal speech, dizziness, numbness, seizure-like activity or syncope Psychiatric Psychiatric: Denies anxiety, behavioral changes, change in appetite, change in libido, cognitive impairment, confusion, depression, difficulty concentrating, hallucinations or suicidal thoughts Endocrine Endocrinology: Denies excessive sweating, polydipsia or polyuria Hematologic/Lymphatic Hematologic/Lymphatic: Denies easy bleeding, easy bruising or lymphadenopathy Allergic/Immunologic Allergic/Immunologic: Denies itchy eyes, lip swelling, seasonal rhinorrhea, rhinitis, throat swelling, tongue swelling, eczemia, wheezing or asthma Vital Signs Vital Signs Vital Signs: 02/22/24 10:14 02/22/24 10:14 02/22/24 10:55 Temperature Temperature Source Pulse Rate 95 Respiratory Rate Blood Pressure 126/74 H 133/75 H Blood Pressure Mean BP Systolic 126 133 BP Diastolic 74 75 Blood Pressure Source Blood Pressure Position Blood Pressure Location Pulse Ox Oxygen Delivery Method 02/22/24 10:55 02/22/24 10:10 02/22/24 10:10 Temperature Temperature Source Temporal Pulse Rate 93 Respiratory Rate Blood Pressure 126/74 H Blood Pressure Mean BP Systolic 126 BP Diastolic 74 Blood Pressure Source Blood Pressure Position Blood Pressure Location Pulse Ox Oxygen Delivery Method 02/22/24 10:10 02/22/24 10:10 02/22/24 10:10 Temperature Temperature Source Pulse Rate 105 H Respiratory Rate 18 Blood Pressure Blood Pressure Mean BP Systolic BP Diastolic Blood Pressure Source Blood Pressure Position Blood Pressure Location Pulse Ox 95 Oxygen Delivery Method 02/22/24 10:10 02/22/24 10:33 Temperature 98.0 F 98 F Temperature Source Oral Pulse Rate 105 H Respiratory Rate 18 Blood Pressure 126/74 H Blood Pressure Mean 91 BP Systolic BP Diastolic Blood Pressure Source Monitor Blood Pressure Position Semi-Fowlers Blood Pressure Location Left Arm Pulse Ox 95 Oxygen Delivery Method Room Air Weight Weight: 213 lb Body Mass Index (BMI) 36.6 Physical Exam Const alert, oriented x3, no apparent distress and healthy appearing General Appearance: cooperative; Negative for anxious HEENT normocephalic Face and Sinus: normal facial exam Eyes EOMs intact bilaterally and no scleral icterus General Eye: normal appearance of both eyes Neck full ROM and supple Lymph Lymphatic: no lymphadenopathy noted Chest Chest: abnormal inspection of the chest Resp normal respiratory effort Effort and Inspection: able to speak in complete sentences Cardio regular rate external exam normal Amniotic Fluid: ROM+plus Back/Spine no CVA tenderness Extremity normal to inspection, full ROM and no clubbing, cyanosis or edema General Extremity: Negative for calf tenderness or edema Skin Lesions: no lesions Rashes: no rashes Psych mental status grossly normal Labs Labs Labs: Blood Type A POSITIVE Antibody Screen NEGATIVE Hct 31.6 % (37-47) L Hgb 10.0 g/dL (12.0-15.0) L Pap Smear Negative Obstetrics Ultrasound Syphilis Total Ab Non-reactive Rubella IgG Antibody Reactive (Nonreactive) Hep Bs Antigen Non-Reactive (Nonreactive) Hepatitis C Antibody Non-Reactive (Nonreactive) Chlamydia DNA (SHERI) Negative (Negative) N.gonorrhoeae DNA (SHERI) Negative (Negative) HIV 1&2 Antibody Non-Reactive (Nonreactive) Glucose 1 Hr 50 gm 86 mg/dL (70-140) Group B Strep DNA Negative (Negative) Rhogam given: No Assessment & Plan (1) GERD (gastroesophageal reflux disease): COMMENT: pepcid (2) Tachycardia: COMMENT: We have no documentation of a rhythm strip or EKG of the patient's tachycardia. I reviewed in detail utilization of her wearable to capture rhythm strip and bring it to the office for us to review. I do not feel any further testing is indicated at this point time until we can accurately capture a rhythm strip with her having symptoms. She appears to be tolerating her twins as expected. We will reevaluate her in December and on a as needed basis. (3) Monozygotic twins: COMMENT: noted on zbigniew testing. di-di monozyqotic. (4) Previous delivery affecting : COMMENT: plan RLTCS. Scheduled for 03/09 @ 7:15 with JV (5) Supervision of high-risk : COMMENT: PRR , WESTON 03/22/24 Geneva Kingsley Cresencio [email or web address] (6) : QUALIFIERS: Weeks of gestation: 35 weeks Qualified Code(s): Z3A.35 - 35 weeks gestation of COMMENT: NIPT low risk and carrier testing. nl anatomy (7) Anxiety and depression: COMMENT: zoloft in past- stopped working. celexa in the past. start effexor, ativan prn, counseling referral (8) Severe pre-eclampsia: PLAN: Plan After discussing the patient's diagnosis and treatment plan options, patient wishes to proceed with surgical management. I have discussed with the patient the risks, benefits, and alternatives of the procedure which include but are not limited to risks of anesthesia, bleeding, infection, possible damage to bowel, bladder, or surrounding vasculature which could lead to additional surgery to evaluate any complications. Patient agrees to procedure and wishes to proceed. ACOG/uptodate references given for additional information regarding procedure.
[2024-02-22] MEDS: Sodium Citrate/Citric Acid 30 ML UDC PO (13:43)
[2024-02-22 14:03] LABS: AST(SGOT) 12 U/L (15-37); Alanine Aminotransfer ALT/SGPT 14 U/L (13-56); Creatinine, Serum 0.54 mg/dL (0.55-1.02); EST Glomerular Filtration Rate 143 mL/min (>60); Est Glom Filt Rate - Afr Amer 174 mL/min (>60); Estimated Creatinine Clearance 176.55 ml/min; Uric Acid 4.1 mg/dL (2.6-6.0)
[2024-02-22] MEDS: Cefazolin 2 GM in 0.9% Normal Saline (100mL Bag) 100 ML IV (14:05)
--- NOTE | 2024-02-22 15:03 | EX.PCM.OBRPT ---
Assessment & Plan (1) Severe pre-eclampsia: (2) GERD (gastroesophageal reflux disease): COMMENT: pepcid (3) Tachycardia: COMMENT: We have no documentation of a rhythm strip or EKG of the patient's tachycardia. I reviewed in detail utilization of her wearable to capture rhythm strip and bring it to the office for us to review. I do not feel any further testing is indicated at this point time until we can accurately capture a rhythm strip with her having symptoms. She appears to be tolerating her twins as expected. We will reevaluate her in December and on a as needed basis. (4) Monozygotic twins: COMMENT: noted on zbigniew testing. di-di monozyqotic. (5) Supervision of high-risk : COMMENT: PRR , [place]ON 03/22/24 Geneva Kingsley Cresencio [email or web address] (6) : QUALIFIERS: Weeks of gestation: 35 weeks Qualified Code(s): Z3A.35 - 35 weeks gestation of COMMENT: NIPT low risk and carrier testing. nl anatomy (7) Anxiety and depression: COMMENT: zoloft in past- stopped working. celexa in the past. start effexor, ativan prn, counseling referral Maternal Data Information [place] Calculator Estimated Delivery Date Method Current WG Current Estimate 03/22/24 LMP (Certain) 35w 6d # 2 Gestational age: 35 weeks 6 days Idanha Doctor Who Attended Delivery: Melissa Burton Details Operative Information Date of Procedure: 02/22/24 Pre-Operative Diagnosis: 28 y/o @ 35 weeks 6 days, pre-eclampsia with severe features, monozygotic twin gestation, prior section Post-Operative Diagnosis: 28 y/o @ 35 weeks 6 days, pre-eclampsia with severe features, monozygotic twin gestation, prior section Classification: ANTHONY Procedure Type: low transverse reinspector #1: Reyes Castro Type of Anesthesia: Spinal Antibiotic Given: Ancef 2 grams IV x1 Drain: Rosado to straight drain Estimated Blood Loss: 400cc Procedure Start Time: 14:26 Procedure Stop Time: 15:10 Time of Delivery: 14:33 Findings Description of Procedure: The patient is a 28 y/o @ 35 weeks 6 days (twin gestation) presented for repeat due to pre-eclampsia with severe features. Spinal anesthesia was placed without difficulty. Rosado catheter was placed. The patient was placed in the dorsal supine position with leftward tilt. Patient was prepped and draped in the normal sterile fashion. Pfannenstiel skin incision was made with the scalpel and carried through to the underlying layer of fascia with the scalpel. Fascia was nicked in the midline and the incision extended laterally. The rectus bellies were dissected off superiorly and inferiorly with out complication both sharply and bluntly. The peritoneum was entered digitally. The incision was stretched and a low transverse uterine incision was made with the scalpel. The infant's head was delivered atraumatically followed by the anterior and posterior shoulders without complication the rest of the delivered. The cord was clamped and cut and the was handed off to awaiting nurse. The second membrane bag was ruptured and one hand and one foot was presenting. The decision was made to deliver breech. The feet were grasped and delivered through the uterus followed by the body and anterior arm. The head was delivered with fundal pressure. The placenta was delivered spontaneously immediately following and was noted to be intact and have 2 placenta's and three-vessel cords. The cords were by a membrane. The uterus was exteriorized cleared of all clots and debris, and the incision was closed in a double layer closure using #1 Vicryl and #1 Monocryl. The ovaries and fallopian tubes were noted to be within normal limits. The uterus was returned to the maternal abdomen and gutters were cleared of all clots and debris. The peritoneum was closed with 3-0 Monocryl in a running fashion. Gloves were changed prior to fascial closure. Fascia was closed with 0 PDS in a running fashion. Subcutaneous tissue was copiously irrigated and the skin was closed with 3-0 Monocryl in a subcuticular fashion. Mepilex dressing was applied without complication. Patient was taken to recovery in stable condition. Presentation: Positive for Vertex Amniotic Membrane Rupture Type: Artificial Time of Membrane Ruptured: 1433 Amniotic Fluid Description: Clear Placental Delivery Description: Manual Removal Placenta Disposition: Sent to Pathology Cord Vessel Description: 3 Vessels Cord Entanglement: Around neck x 1, loose Infant A Gender: Female Delayed Cord Clamping: No Admit VTE Documentation VTE Present on Admission: No VTE Mechan Device Prophylaxis: SCD's VTE Pharm Prophylaxis Ordered: Yes Baby B Operative Information Mode of Delivery: Cord Vessel Description: 3 Vessels Cord Entanglement: None Infant B gender: Female Delayed Cord Clamping: No Multi Select Codes Urinary/Genital Urinary/Genital CPT Codes: 08479 Delivery [facility]
--- NOTE | 2024-02-22 15:09 | DCINST_ITS ---
Discharge Instructions Diet Discharge Diet: No restrictions Activity Discharge Activity: May Not Drive (for 2 weeks or while taking narcotic pain medications.), May Shower and May Take a Tub Bath (in 7 days.) May resume sexual activity in: 4-6 weeks Weight Bearing Status: Full weight bearing Lifting Restrictions: 20 pounds Dressing / Incision Call your doctor if your incision/area has: Continuous Slow Oozing, Sudden Increased Bleeding, Increased Pain/ Swelling, Increased Redness and Foul Smelling Discharge Call your doctor if you observe: Fever of 101 or Higher and Using more than 1 pad per hour Suture Line Care: Avoid Pulling/Pushing and Avoid Pinching/Bending Cleanse incision/area with: Soap & Water and Keep Dressing Clean & Dry Follow Up Care Please Follow Up With: Natalia Varghese DO When: Call [phone] to make an appointment for an incision check in 1-2 weeks. Test Results: Test results from this visit will be discussed in further detail at your follow- up appointment, if applicable. Discharge Plan Admission Admit Date/Time: 02/22/24 10:04 Primary Reason for Your Visit: section Attending Provider: Natalia Varghese Primary Care Provider: Melissa Paez Discharge Orders/Prescriptions Prescriptions: New ibuprofen 800 mg tablet 800 mg PO Q8H PRN (Reason: pain) Qty: 30 0RF Continued LGR-roci-TL-omega 3-fat com #1 27 mg-1 mg-300 mg capsule 27-1-300 mg capsule 1 cap PO DAILY famotidine [Pepcid] 20 mg tablet 20 mg PO DAILY Qty: 30 6RF folic acid 400 mcg tablet 400 mcg PO DAILY Referrals / Follow Up: Melissa Paez MD [Primary Care Provider] - Disposition Disposition (needs filled in before D/C Order can be placed): Home, Self Care
[2024-02-22] MEDS: Oxytocin 15 Units/NS 250ml 15 UNITS/250 ML IV.SOLN 83 UNITS IV (15:30)
[2024-02-22] MEDS: Ketorolac 30 MG/ML Syringe IV ×2 (16:02→22:18)
--- NOTE | 2024-02-22 16:19 | NURSING ---
1605 pt passed a 142 cc clot then bleeding decreased to small
[2024-02-22] MEDS: Lactated Ringers 1,000 ML 100 ML IV (18:28)
[2024-02-23] VITALS (7 sets, daily range): BP systolic 104–129; BP diastolic 63–76; PULSE 64–82; RESP 16–20; TEMP 36.8–37.3; O2SAT 95–97
[2024-02-23] MEDS: Acetaminophen 500 MG Tablet 1000 MG PO ×4 (00:17→17:49)
[2024-02-23] MEDS: Enoxaparin 40 MG/0.4 ML Syringe SC (03:13)
[2024-02-23] MEDS: Ketorolac 30 MG/ML Syringe IV ×2 (03:33→10:10)
[2024-02-23] MEDS: 0.9% Saline Lock 10 ML Syringe IV ×2 (03:33→10:10)
[2024-02-23 04:14] LABS: Pathology Specimen OB SEE PATHOLOGY REPORT
[2024-02-23 05:49] LABS: Hematocrit 27.5 % (37-47); Hemoglobin 8.6 g/dL (12.0-15.0); Mean Corp Hgb Conc 31.3 g/dL (32-36); Mean Corpuscular Hgb 28.1 pg (27.0-32.0); Mean Corpuscular Volume 89.9 fL (81-99); Mean Platelet Vol. 11.4 fl (6.2-12.0); Platelet Count 185 K/mm3 (150-450); RBC Distribution Width CV 13.9 % (11.6-14.6); RBC Distribution Width SD 45.7 fl (35.1-43.9); Red Blood Count 3.06 M/mm3 (4.2-5.4); White Blood Count 8.9 K/mm3 (4.4-11.0)
--- NOTE | 2024-02-23 07:57 | PN.OBGYN_ITS ---
Subjective Subjective Patient doing well without complaints. Tolerating PO. Ambulating and voiding without difficulty. feeding well. Denies chest pain, shortness of breath, calf pain/swelling, fevers, chills, lightheadedness. Objective Data Objective Data Vital Signs: Vital Signs Temp Pulse Resp BP Pulse Ox O2 Del Method 98.8 F 77 16 104/63 97 Room Air 02/22/24 19:46 02/23/24 03:16 02/23/24 03:16 02/23/24 03:16 02/23/24 03:16 02/23/24 03:16 Oxygen Delivery Method Room Air Weight: 213 lb Body Mass Index (BMI) 36.6 Intake & Output: Intake and Output for Last 24 Hours 02/21/24 02/22/24 02/23/24 23:59 23:59 23:59 Intake Total 2893.33 / 2893.33 Output Total 700 / 700 300 / 300 Balance 2193.33 / 2193.33 -300 / -300 Lab / Micro Data 02/23/24 05:35 02/22/24 10:35 Labs: Laboratory Results - last 24 hr 02/22/24 10:35: WBC 8.0, RBC 3.48 L, Hgb 10.0 L, Hct 31.6 L, MCV 90.8, MCH 28.7, MCHC 31.6 L, RDW Std Deviation 44.9 H, RDW Coeff of Vinicius 13.8, Plt Count 244, MPV 11.6, Immature Gran % (Auto) 0.500, Neut % (Auto) 70.1 H, Lymph % (Auto) 22.6, Claiborne % (Auto) 5.7, Eos % (Auto) 0.9, Baso % (Auto) 0.2, Absolute Neuts (auto) 5.6, Absolute Lymphs (auto) 1.82, Nucleated RBC % 0, Creatinine 0.54 L, Estim Creat Clear Calc 176.55, Est GFR (MDRD) Af Amer 174, Est GFR (MDRD) Non-Af 143, Uric Acid 4.1, AST 12 L, ALT 14, U Random Total Protein < 6.0, Urine Creatinine 19.40, Protein/Creatinin Ratio 304 H, Syphilis Total Ab Non-reactive, Group B Strep DNA Negative, Specimen Comment Not Reportable, Blood Type A POSITIVE, Antibody Screen NEGATIVE 02/23/24 05:35: WBC 8.9, RBC 3.06 L, Hgb 8.6 L, Hct 27.5 L, MCV 89.9, MCH 28.1, MCHC 31.3 L, RDW Std Deviation 45.7 H, RDW Coeff of Vinicius 13.9, Plt Count 185, MPV 11.4 ROS Constitutional Constitutional: Reports systems reviewed and no addt'l complaints, except as documented Cardiovascular Cardiovascular: Reports systems reviewed and no addt'l complaints, except as documented Respiratory/Chest Respiratory/Chest: Reports systems reviewed and no addt'l complaints, except as documented Gastrointestinal Gastrointestinal: Reports systems reviewed and no addt'l complaints, except as documented Physical Exam Const alert, oriented x3 and no apparent distress HEENT Head and Scalp: atraumatic Resp normal respiratory effort GI soft to palpation and non-tender Inspection: incision intact, healing well and drainage (none) Bimanual Exam - Vag & Uterus: uterus non-tender Uterus Palpation: uterus fundus firm (below Umbilicus) Assessment & Plan (1) Severe pre-eclampsia: (2) delivery delivered: COMMENT: RLTCS twins JV PLAN: Plan s/p LTCS PPD # 1 1. routine post care 2. breast feeding- support given 3. rh positive 4. rubella immune
[2024-02-23] MEDS: Senna/Docusate Sodium 1 Tablet PO (10:11)
[2024-02-23] MEDS: Ibuprofen 600 MG Tablet PO ×2 (14:50→21:46)
[2024-02-23] MEDS: oxyCODONE 5 MG Tablet PO ×2 (17:48→21:46)
[2024-02-24] MEDS: Acetaminophen 500 MG Tablet 1000 MG PO ×4 (00:04→22:43)
[2024-02-24 01:00] VITALS: BP 121/62; PULSE 67; RESP 16; O2SAT 95
[2024-02-24] MEDS: Enoxaparin 40 MG/0.4 ML Syringe SC (03:13)
[2024-02-24] MEDS: oxyCODONE 5 MG Tablet PO ×6 (03:59→23:51)
[2024-02-24] MEDS: Ibuprofen 600 MG Tablet PO ×5 (03:59→23:51)
[2024-02-24] MEDS: Ondansetron ODT 4 MG Tablet PO ×3 (04:04→20:18)
--- NOTE | 2024-02-24 07:47 | PCM.PN.OB ---
Subjective Subjective Patient doing well without complaints. Tolerating PO. Ambulating and voiding without difficulty. Feeding infants frequently. Denies chest pain, shortness of breath, calf pain/swelling, fevers, chills, lightheadedness. Objective Data Objective Data Vital Signs: Vital Signs Temp Pulse Resp BP Pulse Ox O2 Del Method 98.7 F 67 16 121/62 H 95 Room Air 02/23/24 20:23 02/24/24 01:00 02/24/24 01:00 02/24/24 01:00 02/24/24 01:00 02/24/24 01:00 Oxygen Delivery Method Room Air Weight: 213 lb Body Mass Index (BMI) 36.6 Intake & Output: Intake and Output for Last 24 Hours 02/22/24 02/23/24 02/24/24 23:59 23:59 23:59 Intake Total 2893.33 / 2893.33 Output Total 700 / 700 1300 / 1300 Balance 2193.33 / 2193.33 -1300 / -1300 Lab / Micro Data 02/23/24 05:35 02/22/24 10:35 Physical Exam Const alert and oriented x3 Chest inspection of chest normal Resp normal respiratory effort, normal air movement and no retractions Cardio regular rate and regular rhythm GI normal to inspection, nondistended, normoactive bowel sounds Uterus Palpation: uterus fundus firm Extremity normal to inspection and full ROM Skin no rashes or lesions noted Psych mental status grossly normal Assessment & Plan (1) delivery delivered: COMMENT: RLTCS twins JV (2) Severe pre-eclampsia: (3) Anxiety and depression: COMMENT: zoloft in past- stopped working. celexa in the past. start effexor, ativan prn, counseling referral PLAN: Plan s/p LTCS PPD # 2 1. routine post care 2. breast feeding- support given 3. rh positive 4. rubella immune 5. anticipate d/c home tomorrow.
[2024-02-24 09:58] VITALS: BP 127/83; PULSE 68; RESP 16; TEMP 36.8; O2SAT 97
[2024-02-24] MEDS: Senna/Docusate Sodium 1 Tablet PO (10:14)
[2024-02-24 14:22] VITALS: BP 113/66; PULSE 73; RESP 16; TEMP 36.7; O2SAT 97
--- NOTE | 2024-02-24 15:55 | CASEMGMT ---
Social Work Brief Assessment Labor and Delivery Unit Patient Address: [address] [facility], [place] [address] Phone number: [phone] Date of Referral/Notification: February 23, 2024 Time of Referral: 1957 Referred By: Dr. Ilsa Muñoz Date of Intervention: February 24, 2024 Time of Intervention: approximately [id number] Reason for Referral: maternal history of depression anxiety Informant: medical record and mother of baby (MOB) Dana Guzman; father of baby (FOB) Austyn Guzman present for conversation. History: ILANA is gravid 2, para 1 now 3 after delivering twin girls this admission. ILANA is a 28-year-old female, to the FOB. care started at seven weeks gestation and routine after that. Delivered twin girls at 35.6 weeks gestation due to visual changes related to preeclampsia. Delivering via section on 02.22.2024. Baby A: Yan (Apgars 7 and 8 at 1 and 5 minutes of life respectively, weighing 2205 grams). Baby B: Naya (Apgars 8 and 9 at 1 and 5 minutes of life, weighint 2315 grams). Oldest child at home is Cresencio, born 03.19.2022. 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 FOB is an business account specialist for [employer]. MOB and FOB report to have good family support in the area as well as friends. Both MOB and FOB report to have a history of anxiety. MOB a history of some depression. MOB acknowledges having depression for about a year after their older child was born. MOB reports that about a year went and got medication which did help for a while. However the family MOB became . MOB reports has been on Zoloft and Celexa in the past. Reports would be willing to seek out help and support sooner this time should symptoms arise. MOB denies ever having any suicidal ideations during the timeframe but reports was depressed. No reports of any type of substance use for either parent. No indication of any domestic violence during assessment and upon admission these concerns were denied. Assessment: met with both MOB and FOB together. Each parent was holding one of the babies. Both parents were fully engaged in conversation with social work, willing to discuss worries about change in life status of having twins. Both are looking forward to having the babies however. No concerns about bonding or interactions thus far. Parents appear supportive of each other, and supportive of each other's emotional health. Open communication noted between the parents. Parents deny any type of issues with housing, transportation or access to basic needs for themselves or their children. Report to have a safe sleep space and a car seat. Denies need for referrals to any community agencies. FOB does it take some time off of work MOB home to help MOB with transition for a couple of months with the children. Parents are forward thinking, looking to how to provide support to MOB at home. Provided information and resources on mood and anxiety disorders including local supports where parents could go for counseling should this be needed. MOB reports to feel good at this time, but reports would not wait as long to get help this time. Plan: MOB able discharge home with twin girls when all are medically ready. Good support in place between family and FOB. Resources on paranasal mood and anxiety disorders have been provided. No further needs requested or indicated. -JOCELINE Harding, BACKWINDER *This note was generated with [employer] software. It may contain incorrect words, spelling, and punctuation that were not noted in review of the chart prior to signing*
[2024-02-24] MEDS: SimETHICONE 80 MG Chewable Tablet PO (15:59)
[2024-02-24 20:45] VITALS: BP 119/71; PULSE 84; RESP 16; TEMP 36.8; O2SAT 97
[2024-02-25] MEDS: Enoxaparin 40 MG/0.4 ML Syringe SC (02:22)
[2024-02-25 02:27] VITALS: BP 106/63; PULSE 59; RESP 16; TEMP 36.8; O2SAT 95
[2024-02-25] MEDS: Acetaminophen 500 MG Tablet 1000 MG PO ×2 (04:50→11:10)
[2024-02-25] MEDS: oxyCODONE 5 MG Tablet PO ×2 (04:51→09:41)
[2024-02-25] MEDS: Ondansetron ODT 4 MG Tablet PO ×2 (04:59→09:42)
[2024-02-25] MEDS: Ibuprofen 600 MG Tablet PO ×2 (07:02→13:45)
--- NOTE | 2024-02-25 07:41 | DS.PCM_ITS ---
Providers Date of Admission: 02/22/24 Date of Discharge: 02/25/24 Primary Care Physician: Dr. Melissa Paez MD Reason For Visit: REPEAT Diagnosis Discharge Diagnosis (1) delivery delivered: Status: Acute Code(s): O82 - Encounter for delivery without indication (2) Severe pre-eclampsia: Status: Acute Code(s): O14.10 - Severe pre-eclampsia, unspecified trimester (3) Anxiety and depression: Status: Chronic Code(s): F41.9 - Anxiety disorder, unspecified; F32.9 - Major depressive disorder, single episode, unspecified Plan s/p LTCS PPD # 3 1. routine post care 2. breast feeding- support given 3. rh positive 4. rubella immune 5.d/c home today. Medications at Discharge Home Medications EAL-eprv-GE-omega 3-fat com #1 27 mg-1 mg-300 mg capsule 1 cap PO DAILY 10/29/20 famotidine 20 mg tablet (Pepcid) 20 mg PO DAILY heartburn #30 tabs 11/11/23 folic acid 400 mcg tablet 400 mcg PO DAILY Referral by Dr Rich 01/17/24 ibuprofen 800 mg tablet 800 mg PO Q8H PRN pain #30 tabs 02/22/24 oxycodone 5 mg tablet 5 mg PO Q8H PRN pain 7 days #14 tabs 02/25/24 Hospital Course Operations section Procedures None Summary of Care Provided Minutes Spent on Discharge: 20 Hospital Course: repeat c/s with twins for severe pre-eclampsia. now with stable blood pressures. today patient doing well without complaints. Tolerating PO. Ambulating and vo iding without difficulty. Feeding well, using donor milk. Denies chest pain, shortness of breath, calf pain/swelling, fevers, chills, lightheadedness. Physical Exam Const alert and oriented x3 Chest inspection of chest normal Resp normal respiratory effort, normal air movement and no retractions Cardio regular rate and regular rhythm GI normal to inspection, nondistended, normoactive bowel sounds Uterus Palpation: uterus fundus firm Extremity normal to inspection and full ROM Skin no rashes or lesions noted Skin Narrative: dressing c/d/i Psych mental status grossly normal Weight / BMI Weight Weight: 213 lb Body Mass Index (BMI) 36.6 ABG / Lab / Microbiology Data 02/23/24 05:35 02/22/24 10:35 D/C Instructions Discharge Diet: No restrictions May resume sexual activity in: 4-6 weeks Weight Bearing Status: Full weight bearing Call your doctor if your incision/area has: Continuous Slow Oozing, Sudden Increased Bleeding, Increased Pain/ Swelling, Increased Redness and Foul Smelling Discharge Call your doctor if you observe: Fever of 101 or Higher and Using more than 1 pad per hour Suture Line Care: Avoid Pulling/Pushing and Avoid Pinching/Bending Cleanse incision/area with: Soap & Water and Keep Dressing Clean & Dry Please Follow Up With: Natalia Varghese DO When: Call [phone] to make an appointment for an incision check in 1-2 weeks. Meaningful Use Info Meaningful Use Meaningful Use Diagnoses (Choose all that apply): None applicable Ischemic Stroke Statin Dosing Therapy Reference: STATIN DOSE THERAPY REFERENCE: * Patients > 75 years receive moderate or high dose statin therapy. * Patients 75 years or YOUNGER should receive HIGH intensity statin dose unless contraindicated. You will be required to document reason for non-treatment if statin daily dose does not meet guidelines. HIGH DOSE STATIN THERAPY DAILY Atorvastatin > than or = to 40 mg Rosuvastatin > than or = to 20 mg Amlodipine + Atorvastatin > than or = to 2.5/40 mg Ezetimibe + Simvastatin 10/80 mg Simvastatin 80mg Discharge Plan Admission Admit Date/Time: 02/22/24 10:04 Primary Reason for Your Visit: section Attending Provider: Natalia Varghese Primary Care Provider: Melissa Paez Discharge Orders/Prescriptions Prescriptions: New ibuprofen 800 mg tablet 800 mg PO Q8H PRN (Reason: pain) Qty: 30 0RF Continued GLV-fhrc-AV-omega 3-fat com #1 27 mg-1 mg-300 mg capsule 27-1-300 mg capsule 1 cap PO DAILY famotidine [Pepcid] 20 mg tablet 20 mg PO DAILY Qty: 30 6RF folic acid 400 mcg tablet 400 mcg PO DAILY No Action oxycodone 5 mg tablet 5 mg PO Q8H PRN (Reason: pain) 7 Days Qty: 14 0RF Referrals / Follow Up: Melissa Paez MD [Primary Care Provider] - Disposition Disposition (needs filled in before D/C Order can be placed): Home, Self Care
[2024-02-25 09:14] VITALS: BP 112/73; PULSE 66; RESP 16; TEMP 37.4; O2SAT 97
[2024-02-25] MEDS: Senna/Docusate Sodium 1 Tablet PO (11:10)
[2024-02-25 14:00] VITALS: BP 107/85; PULSE 52; RESP 16; TEMP 37.1
== END 2024-02-25 14:15 | disposition home or self-care (01) | DRG 788 ==
PROVIDERS: Admitting Provider Obstetrics & Gynecology; PCP Internal Medicine; Visit Provider Obstetrics & Gynecology
PROC: 10D00Z1 Extraction of Products of Conception, Low, Open Approach (ICD-10-PCS; CPT 59514; principal; 2024-02-22 13:45)
DX: O14.14 Severe pre-eclampsia complicating childbirth (principal); Z37.2 Twins, both liveborn; F32.A Depression, unspecified; K21.9 Gastro-esophageal reflux disease without esophagitis; F41.9 Anxiety disorder, unspecified; O30.043 Twin pregnancy, dichorionic/diamniotic, third trimester; O99.344 Other mental disorders complicating childbirth; O99.62 Diseases of the digestive system complicating childbirth; O34.211 Maternal care for low transverse scar from previous cesarean delivery; O99.892 Other specified diseases and conditions complicating childbirth; R00.0 Tachycardia, unspecified; O32.1XX2 Maternal care for breech presentation, fetus 2; O69.81X1 Labor and delivery complicated by cord around neck, without compression, fetus 1; Z3A.35 35 weeks gestation of pregnancy; Z79.899 Other long term (current) drug therapy
CPT/HCPCS: 59025; 59050; 82565; 82570; 84156; 84450; 84460; 84550; 85025; 85027; 86780; 86850; 86900; 86901; 87081; 87653; 88307; 99221; J7120; A4216; G0378; J2405

== ENCOUNTER → 2024-05-03 | Outpatient (CLI) | payer OTHER, SELFPAY ==
--- NOTE | 2024-05-03 13:55 | RAD_ITS ---
STUDY: X-RAY - RIGHT FOOT CLINICAL: Female, 29 years old. Foot pain following injury. TECHNIQUE: 3 view(s) of the foot. COMPARISON: None. FINDINGS: Normal talus, calcaneus, and tarsal bones. Normal visualized subtalar, talonavicular, calcaneocuboid, tarsal and tarsometatarsal articulations. Normal metatarsi. Normal metatarsophalangeal joint of the great toe. There is a bipartite tibial sesamoid. Normal interphalangeal joint of the great toe. Normal phalanges of the great toe. Normal second through fifth metatarsophalangeal joints. Normal interphalangeal joints and phalanges of the lesser toes. Mild degree of soft tissue swelling. RAD/Foot min 3 Views IMPRESSION: Mild degree of soft tissue swelling. Electronically Signed: Frankie Pleitez MD at 14:15 EDT ,
== END | disposition home or self-care (01) ==
PROVIDERS: PCP Internal Medicine; Referring Provider Physician Assistant Surgical; Visit Provider Physician Assistant Surgical
DX: T14.90XA Injury, unspecified, initial encounter (principal)
CPT/HCPCS: 73630

== ENCOUNTER → 2024-12-19 | Outpatient (CLI) | payer OTHER, SELFPAY ==
[2024-12-19 15:24] LABS: Hematocrit 43.5 % (37-47); Hemoglobin 13.6 g/dL (12.0-15.0); Mean Corp Hgb Conc 31.3 g/dL (32-36); Mean Corpuscular Hgb 29.4 pg (27.0-32.0); Mean Corpuscular Volume 94.2 fL (81-99); Mean Platelet Vol. 11.1 fl (6.2-12.0); Platelet Count 354 K/mm3 (150-450); RBC Distribution Width CV 12.9 % (11.6-14.6); RBC Distribution Width SD 44.3 fl (35.1-43.9); Red Blood Count 4.62 M/mm3 (4.2-5.4); White Blood Count 7.5 K/mm3 (4.4-11.0)
[2024-12-19 16:17] LABS: ALB/GLOB Ratio 1.3 RATIO (0.9-2.4); AST(SGOT) 21 U/L (<=31); Alanine Aminotransfer ALT/SGPT 16 U/L (<=34); Albumin, Serum 4.2 g/dL (3.5-5.0); Alkaline Phosphatase 94 U/L (35-104); Anion Gap 11 (5-15); BUN 12 mg/dL (4-19); BUN/Creat Ratio 16.7 RATIO (10-20); Calcium 9.2 mg/dL (7.6-11.0); Carbon Dioxide 24.2 mmol/L (22.0-29.0); Chloride 104 mmol/L (96-108); Creatinine, Serum 0.7 mg/dL (0.6-1.0); EST Glomerular Filtration Rate 114 (>60); Globulin 3.2 g/dL (2.2-4.2); Glucose 80 mg/dL (70-99); Potassium 4.1 mmol/L (3.3-5.1); Protein, Total 7.4 g/dL (5.9-8.4); Sodium Level 139 mmol/L (133-145); Total Bilirubin 0.27 mg/dL (0.00-1.30)
[2024-12-24 11:08] LABS: Vitamin D 1,25-Dihydroxy 62.2 pg/mL (24.8-81.5)
== END | disposition home or self-care (01) ==
LOC: BIMLAB 11:43
PROVIDERS: PCP Internal Medicine; Referring Provider Physician Assistant; Visit Provider Physician Assistant
DX: F32.A Depression, unspecified (principal); F41.9 Anxiety disorder, unspecified; R53.83 Other fatigue
CPT/HCPCS: 36415; 80053; 82652; 84443; 85027

== ENCOUNTER → 2024-12-31 | Outpatient (CLI) | payer OTHER, SELFPAY ==
[2024-12-31 19:54] LABS: Cholesterol 193 mg/dL (<=200); High Density Lipoprotein 60 mg/dL; Low Density Lipoprotein Calc. 109 mg/dL; Triglycerides 121 mg/dL; Very Low Density Lipoprotein 24 mg/dL (5-40); Vitamin B12 390 pg/mL (180-914); cholesterol:hdl ratio screen 3.24
== END | disposition home or self-care (01) ==
LOC: BIMLAB 15:01
PROVIDERS: PCP Internal Medicine; Referring Provider Internal Medicine; Visit Provider Internal Medicine
DX: E78.5 Hyperlipidemia, unspecified (principal); F32.9 Major depressive disorder, single episode, unspecified; F41.9 Anxiety disorder, unspecified
CPT/HCPCS: 36415; 80061; 82607